=== PATIENT | male | born 1960 | race Caucasian/White ===

== ENCOUNTER 2016-11-28 17:12 | Emergency (ER) | payer OTHER ==
[2016-11-28 17:44] VITALS: BP 106/68
--- NOTE | 2016-11-28 17:54 | UC ---
Back Pain HPI - HPI Summary HPI Summary: 56 YEAR OLD MALE PRESENTS WITH COMPLAINS OF RIGHT SIDED LOWER BACK PAIN. - History of Current Complaint Chief Complaint: UCBackPain Stated Complaint: BACK PAIN Time Seen by Provider: 11/28/16 17:49 Hx Obtained From: Patient Timing: Constant, Lasting Hours Severity Initially: Moderate Severity Currently: Moderate Pain Scale Used: 0-10 Numeric - 7 Character: Sharp, Spasmodic Aggravating: Movement, Bending Alleviating: Rest, Position - Allergies/Home Medications Allergies/Adverse Reactions: Allergies Allergy/AdvReac Type Severity Reaction Status Date / Time No Known Allergies Allergy Verified 04/02/16 10:32 PMH/Surg Hx/FS Hx/Imm Hx Previously Healthy: Yes - Surgical History Surgical History: Yes Surgery Procedure, Year, and Place: 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 appy. hernia bilateral. RCT repair. heart caths x 3 - Family History Known Family History: Positive: Unknown - Social History Alcohol Use: Occasionally Substance Use Type: None Smoking Status (MU): Former Smoker When Did the Patient Quit Smoking/Using Tobacco: in his 20's - Immunization History Most Recent Influenza Vaccination: 2016 Review of Systems Constitutional: Negative Skin: Negative Eyes: Negative ENT: Negative Respiratory: Negative Cardiovascular: Negative Gastrointestinal: Negative Genitourinary: Negative Motor: Negative Neurovascular: Negative Musculoskeletal: Other: - RIGHT LOWER BACK PAIN/SPASM Neurological: Negative Psychological: Negative All Other Systems Reviewed And Are Negative: Yes Physical Exam Triage Information Reviewed: Yes Vital Signs: Initial Vital Signs Temp 37.1 C 11/28/16 17:40 Pulse 56 11/28/16 17:40 Resp 18 11/28/16 17:40 BP 106/68 11/28/16 17:40 Pulse Ox 98 11/28/16 17:40 Eye Exam: Normal ENT Exam: Normal Dental Exam: Normal Neck exam: Normal Neck: Positive: 1 Respiratory Exam: Normal Cardiovascular Exam: Normal Abdominal Exam: Normal Musculoskeletal: Positive: Other: - RIGHT LOWER BACK PAIN/SPASM Neurological Exam: Normal Psychological Exam: Normal Skin Exam: Normal Back Pain Course/Dx - Differential Dx/Diagnosis Provider Diagnoses: RIGHT LOWER BACK PAIN/SPASM Discharge - Discharge Plan Condition: Stable Disposition: HOME Prescriptions: Meloxicam(NF) [Mobic(NF)] 7.5 mg PO BID #30 tab Methocarbamol TAB* [Robaxin 500 MG TAB*] 500 mg PO TID PRN #30 tab PRN Reason: Spasms - Back Patient Education Materials: Low Back Strain (ED), Muscle Spasm (ED) Forms: *Work Release Referrals: Ousmane Mcqueen MD [Primary Care Provider] -
== END 2016-11-28 18:05 | disposition home or self-care (01) ==
LOC: UCEAST 17:12
DX: M54.5 Low back pain (principal); M62.830 Muscle spasm of back; Z87.891 Personal history of nicotine dependence
CPT/HCPCS: 99212; G0463

== ENCOUNTER 2016-12-01 17:07 | Emergency (ER) | payer OTHER ==
[2016-12-01 17:44] VITALS: BP 114/78
--- NOTE | 2016-12-01 17:51 | UC ---
Back Pain HPI - HPI Summary HPI Summary: 56 YEAR OLD MALE PRESENTS WITH COMPLAINS OF CONTINUED RIGHT SIDED LOWER BACK PAIN. HE HAS NOT SEEN PT. - History of Current Complaint Chief Complaint: UCBackPain Stated Complaint: BACK PAIN Time Seen by Provider: 12/01/16 17:51 Hx Obtained From: Patient Onset/Duration: Gradual Onset Timing: Intermittent Severity Initially: Moderate Severity Currently: Moderate Pain Scale Used: 0-10 Numeric - 5 Character: Sharp Aggravating: Movement, Lifting Alleviating: Rest, Position - Allergies/Home Medications Allergies/Adverse Reactions: Allergies Allergy/AdvReac Type Severity Reaction Status Date / Time No Known Allergies Allergy Verified 12/01/16 17:44 Home Medications: Home Medications Bisoprolol TAB* [Zebeta TAB*] 5 mg PO DAILY 12/01/16 [History Confirmed 12/01/16 ] PMH/Surg Hx/FS Hx/Imm Hx Previously Healthy: Yes - Surgical History Surgical History: Yes Surgery Procedure, Year, and Place: 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 appy. hernia bilateral. RCT repair. heart caths x 3 - Family History Known Family History: Positive: Unknown - Social History Alcohol Use: Occasionally Substance Use Type: None Smoking Status (MU): Former Smoker When Did the Patient Quit Smoking/Using Tobacco: in his 20's - Immunization History Most Recent Influenza Vaccination: 2016 Review of Systems Constitutional: Negative Skin: Negative Eyes: Negative ENT: Negative Respiratory: Negative Cardiovascular: Negative Gastrointestinal: Negative Genitourinary: Negative Motor: Negative Neurovascular: Negative Musculoskeletal: Other: - LOWER RIGHT SIDED BACK PAIN Neurological: Negative Psychological: Negative All Other Systems Reviewed And Are Negative: Yes Physical Exam Triage Information Reviewed: Yes Appearance: Well-Appearing Vital Signs: Initial Vital Signs Temp 36.6 C 12/01/16 17:40 Pulse 64 12/01/16 17:40 Resp 18 12/01/16 17:40 BP 114/78 12/01/16 17:40 Pulse Ox 98 12/01/16 17:40 Eye Exam: Normal ENT Exam: Normal Dental Exam: Normal Neck exam: Normal Neck: Positive: 1 Respiratory Exam: Normal Cardiovascular Exam: Normal Abdominal Exam: Normal Musculoskeletal: Positive: Other: - LOWER RIGHT SIDED BACK PAIN Neurological Exam: Normal Psychological Exam: Normal Skin Exam: Normal Back Pain Course/Dx - Differential Dx/Diagnosis Provider Diagnoses: LOWER RIGHT SIDED BACK PAIN Discharge - Discharge Plan Condition: Stable Disposition: HOME Prescriptions: Diclofenac 1% GEL (NF) [Voltaren 1% GEL (NF)] 2 gm TOPICAL BID #1 tube Methylprednisolone [Medrol Dosepak 4 MG*] 4 mg PO .SEE HAYLEY INSTRUCTION #21 tab Patient Education Materials: Low Back Strain (ED), Acute Low Back Pain (ED) Forms: *Work Release Referrals: Ousmane Mcqueen MD [Primary Care Provider] -
== END 2016-12-01 18:10 | disposition home or self-care (01) ==
LOC: UCEAST 17:07
DX: M54.5 Low back pain (principal)
CPT/HCPCS: 99212; G0463

== ENCOUNTER 2017-03-19 10:34 | Emergency (ER) | payer OTHER ==
[2017-03-19] MEDS ORDERED: Ibuprofen TAB* 400 MG PO ONE (11:20)
[2017-03-19] MEDS ORDERED: Acetaminophen TAB* 325 MG PO ONE (11:21)
[2017-03-19 11:22] VITALS: BP 136/89
--- NOTE | 2017-03-19 11:52 | RAD ---
INDICATION: LEFT scapular region pain radiates to the front of the chest. Remote cardiac surgery. COMPARISON: April 02, 2016 TECHNIQUE: Dual energy PA and routine lateral views of the chest were obtained. REPORT: Unchanged tented appearance at the LEFT mediastinal margin without concern. Clear lungs and pleural spaces. Negative for pneumothorax. Negative for cardiomegaly. Unremarkable central pulmonary vasculature. Surgical clips at the RIGHT humeral head. No suspicious osseous lesions. IMPRESSION: No evidence for acute intrathoracic disease.
--- NOTE | 2017-03-23 07:16 | UC ---
Aiden Coker Angela, [facility] on 03/19/17 at 1043 . Cardiac HPI - HPI Summary HPI Summary: In Room Note: This pt is a 57 y/o male presenting to [facility] c/o left sided shoulder blade pain for x6 days worsening since last night. Pt notes that this morning his left sided chest was sore. His pain is currently rated 9/10 and is constant. He has taken ibuprofen all week with relief. This morning he had Tylenol at 06:00 with no relief. His pain is aggravated with moving his left arm across his body and palpation. He denies radiation to the chin or radiation down the left arm, nausea, vomiting, diaphoresis, abd pain. Pt denies heavy lifting at work. Pt has an echo due next week. 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 Salazar (from [place]), is on 04/05. Pt is currently taking metoprolol, to take the work load off his heart. PMHx includes open hear surgery at age 4, cardiac catheterization x3 (last one was more than 10 years ago), heart murmur. Note: Vital signs are stable, afebrile Pulse ox is 97. 8/10 pain. Blood pressure is 127/81. Nurses note: Back pain since last week, pain moving to front of chest, points to L chest. Pain worse since last night. - History of Current Complaint Stated Complaint: SHOULDER BLADE PAIN CHEST PAIN Hx Obtained From: Patient Onset/Duration: Lasting Days, Still Present Timing: Constant Pain Intensity: 9 - out of 10 Chest Pain Location: Left Anterior Aggravating Factor(s): Other - moving left arm across his chest Associated Signs & Symptoms: Positive: Chest Pain. Negative: Nausea/Vomiting, Cough - with left shoulder blade pain, Abdominal Pain - Allergy/Home Medications Allergies/Adverse Reactions: Allergies Allergy/AdvReac Type Severity Reaction Status Date / Time No Known Allergies Allergy Verified 12/01/16 17:44 Home Medications: Home Medications Acetaminophen [Acetaminophen Extra Stren] 500 mg PO Q4H PRN 03/19/17 [History Confirmed 03/19/17] Atenolol [Tenormin 25 MG] 25 mg PO DAILY 03/19/17 [History Confirmed 03/19/17] Multiple Vitamin [Multivitamins] 1 cap PO DAILY 03/19/17 [History Confirmed 01/24] PMH/Surg Hx/FS Hx/Imm Hx - Additional Past Medical History Additional PMH: PMHx: heart murmur Previously Healthy: No - previous treatment for cardiovascular condition Other Endocrine History: DENIES: diabetes Cardiovascular History: Cardiac Disease - cardiac catheterization x3, Other - cardiac cath Other Cardiovascular History: cardiac cath - Surgical History Surgical History: Yes - cardiac cath Surgery Procedure, Year, and Place: 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 appy. hernia bilateral. RCT repair. heart caths x 3 - Family History Known Family History: Positive: Cardiac Disease - Father: CHF, pacemaker. 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 Neurological: Negative Psychological: Negative All Other Systems Reviewed And Are Negative: Yes Physical Exam Triage Information Reviewed: Yes Vital Signs: Initial Vitals Temp Pulse Resp BP Pulse Ox 97.9 F 51 16 127/81 97 03/19/17 10:45 03/19/17 10:45 03/19/17 10:45 03/19/17 10:45 03/19/17 10:45 Vital Signs Reviewed: Yes - Additional Comments The patient is well-nourished in no acute distress. The skin is warm and dry and skin color reflects adequate perfusion. HEENT: The head is normocephalic and atraumatic. The pupils are equal and reactive. The conjunctivae are clear and without drainage. Nares are patent and without drainage. Mouth reveals moist mucous membranes and the throat is without erythema and exudate. The external ears are intact. The ear canals are patent and without drainage. The tympanic membranes are intact. Neck is supple with full range of motion and non-tender. There are no carotid bruits. There is no neck vein distension. Respiratory: Lungs are clear to auscultation and breath sounds are symmetrical and equal. Cardiovascular: Hear is regular rate and rhythm. 2/6 SYSTOLIC MURMUR AT THE LEFT STERNAL BORDER (PREVIOUSLY DIAGNOSED). There is no peripheral edema and pulses are symmetrical and equal. NO BRUITS. Abdomen: The abdomen is soft and non-tender. There are normal bowel sounds heard in all four quadrants and there is no organomegaly palpated. Musculoskeletal: Extremities are non-tender with full range of motion. There is good capillary refill. There is no peripheral edema or calf tenderness elicited. OVER THE LEFT SCAPULA THERE IS PAIN WITH PALPATION. TRIGGER POINT OVER THE LEFT SCAPULA. THERE IS POSTERIOR SCAR ON THE POSTERIOR LEFT THORAX, THAT IS WELL HEALED WITHOUT INFECTION. BILATERAL FEMORAL PULSES ARE SYMMETRICAL AND EQUAL. Neurological: Patient is alert and oriented to person, place and time. The patient has symmetrical motor strength in all four extremities. Cranial nerves are grossly intact. Deep tendon reflexes are symmetrical and equal in all four extremities. Psychiatric: The patient has an appropriate affect and does not exhibit any anxiety or depression. Diagnostics - Radiology Chest XR Xray Interpretation: No Acute Changes - IMPRESSION: No evidence for acute intrathoracic disease. Dr. Holland has reviewed this radiology report. Radiology Interpretation Completed By: Radiologist - EKG Cardiac Rate: Bradycardia Cardiac Rhythm: Sinus: Normal - with 1st degree AV block. Q waves in V1 and V2. Re-Evaluation - Re-Evaluation First Eval Re-Evaluation Time: 11:47 Comment: Pt feels no chest discomfort, except when palpated in the left upper chest. - Assessment/Plan Course Of Treatment: Medications have been included in the original chart and reviewed. Patient is Urgent/Emergent. BP elevated due to current condition w/o HTN in PMH. Physical exam shows OVER THE LEFT SCAPULA THERE IS PAIN WITH PALPATION. TRIGGER POINT OVER THE LEFT SCAPULA. THERE IS POSTERIOR SCAR ON THE POSTERIOR LEFT THORAX, THAT IS WELL HEALED WITHOUT INFECTION. 2/6 SYSTOLIC MURMUR AT THE LEFT STERNAL BORDER (PREVIOUSLY DIAGNOSED). NO BRUITS. BILATERAL FEMORAL PULSES ARE SYMMETRICAL AND EQUAL. COT: Blood pressure testing in both arms shows no significant difference. I re-evaluated the pt at 11:47, pt feels no chest discomfort, except when palpated in the left upper chest. I discussed with the pt and , the choice of going to the ER for immediate evaluation and signs for cardiac conditions. They prefer not going to the ER. At this point based on the physical exam, it is most likely that this is posterior thorax muscle strain, but I did explain that further testing of the blood would be needed to help completely rule out any cardiac event. I have given the pt acetaminophen and ibuprofen, and I explained to the pt and his the regimen to take this for pain. I will also give him a 6 Vicodin. [facility] reference number is [id number]. I emphasized the importance of going to the ER if the pain changes in any way. - Differential Diagnoses - Chest Pain Differential Diagnosis/HQI/PQRI: Acute ID, Aortic Aneurysm, Chest Wall, Lower Respiratory Infection, Pulmonary Embolism - Differential Diagnoses - Palpitations Differential Diagnosis/HQI/PQRI: Pulmonary Embolism - Clinical Impression Provider Diagnoses: Left posterior thorax muscle strain Discharge - Discharge Plan Condition: Stable Disposition: HOME Prescriptions: HYDROcodone/ACETAMIN 5-325 MG* [Hollister 5-325 TAB*] 1 tab PO Q6H #6 tab MDD 4 Patient Education Materials: Chest Pain (ED), Muscle Spasm (ED), Thoracic Back Strain (ED) Forms: *Work Release Referrals: Ousmane Mcqueen MD [Primary Care Provider] - Additional Instructions: Your blood pressure reading today was 127/81, indicating PREHYPERTENSION. Follow -up with your primary care provider within 4 weeks for blood pressure readings and further evaluation. Thank you for helping us improve patient care by filling out the My Point Survey. 1. Your diagnosis is back strain. 2. As we discussed: your EKG did not show anything acute, but has some abnormal elements that you should discuss with your provider. 3. I have given you 6 Vicodin to help you sleep. 4. Warm moist heat in the morning, ice to the trigger point over left scapula. 5. Most important, if any signs of new pain or pain that might suggest a heart problem, go to ED. 6. Ibuprofen 400mg (2 pills) and acetaminophen 500 mg taken at the same time, up to four times a day would be good for both pain and calming down the inflammation. This may irritate your stomach. Take an antacid if it does. If you need to do this for more than a week because of pain, check with your doctor. PLEASE SEEK CARE AT THE EMERGENCY DEPARTMENT IF SYMPTOMS WORSEN OR IF NEW SYMPTOMS DEVELOP. FOLLOW UP WITH YOUR PRIMARY CARE PHYSICIAN. The documentation as recorded by the Aiden amaya,Va accurately reflects the service I personally performed and the decisions made by me, Douglas Holland MD.
== END 2017-03-19 12:15 | disposition home or self-care (01) ==
LOC: UCEAST 10:34
DX: S29.012A Strain of muscle and tendon of back wall of thorax, initial encounter (principal); X58.XXXA Exposure to other specified factors, initial encounter; Y93.9 Activity, unspecified; Y92.9 Unspecified place or not applicable; I44.0 Atrioventricular block, first degree; R01.1 Cardiac murmur, unspecified; Z87.891 Personal history of nicotine dependence
CPT/HCPCS: 71020; 93005; 99212; A9270-GY; G0463

== ENCOUNTER 2017-04-01 12:39 | Emergency (ER) | payer OTHER | END 2017-04-01 14:09 | disposition left against medical advice (07) | LOC: UCEAST 12:39 | DX: Z53.21 Procedure and treatment not carried out due to patient leaving prior to being seen by health care provider (principal) ==

== ENCOUNTER 2017-04-02 08:33 | Emergency (ER) | payer OTHER ==
[2017-04-02 09:13] VITALS: BP 147/93
--- NOTE | 2017-04-02 10:03 | UC ---
Shoulder Pain HPI - HPI Summary HPI Summary: 3 WEEKS OF PAIN POSTERIOR LEFT SHOULDER. NO INJURY. PT DOES A LOT OF REPETITIVE MOTION AT WORK. HAS TRIED IBUPROFEN AND HYDROCODONE WITHOUT MUCH RELIEF. HAS BEEN GOING TO PT FOR ABOUT A WEEK. NO APPRECIABLE DIFFERENCE SO FAR. HAS FULL ROM BUT PAIN IS CONSTANT. HAS BEEN TAKING 800MG IBUPROFEN EVERY 5HRS AND HAS HAD SOME STREAKING OF BLOOD ON HIS STOOLS. DENIES SOB, CP, DIZZINESS, FAINTNESS. - History of Current Complaint Chief Complaint: UCUpperExtremity Stated Complaint: SHOULDER PAIN Time Seen by Provider: 04/02/17 09:38 Hx Obtained From: Patient Onset/Duration: Gradual Onset, Lasting Weeks, Still Present Timing: Constant Severity Initially: Moderate Severity Currently: Moderate Pain Intensity: 9 Pain Scale Used: 0-10 Numeric Character: Sharp Aggravating Factor(s): Nothing Alleviating Factor(s): Nothing Associated Signs And Symptoms: Negative: Swelling, Weakness, Numbness/Tingling Related History: Dominant Hand Right - Allergies/Home Medications Allergies/Adverse Reactions: Allergies Allergy/AdvReac Type Severity Reaction Status Date / Time No Known Allergies Allergy Verified 04/02/17 09:13 PMH/Surg Hx/FS Hx/Imm Hx Cardiovascular History: Cardiac Disease - Surgical History Surgical History: Yes Surgery Procedure, Year, and Place: 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 appy. hernia bilateral. RCT repair. heart caths x 3 - Family History Known Family History: Positive: Unknown, Cardiac Disease - Father: CHF, pacemaker. Paternal grandfather: [place] at age 60., Other - Mother: scarlet fever Negative: Hypertension - Social History Alcohol Use: Occasionally Substance Use Type: None Smoking Status (MU): Former Smoker When Did the Patient Quit Smoking/Using Tobacco: in his 20's - Immunization History Most Recent Influenza Vaccination: 2016 Review of Systems Constitutional: Negative Skin: Negative Respiratory: Negative Cardiovascular: Negative Gastrointestinal: Negative Musculoskeletal: Myalgia All Other Systems Reviewed And Are Negative: Yes Physical Exam Triage Information Reviewed: Yes Appearance: Well-Appearing, No Pain Distress, Well-Nourished Vital Signs: Initial Vital Signs Temp 97.5 F 04/02/17 09:08 Pulse 68 04/02/17 09:08 Resp 20 04/02/17 09:08 BP 147/93 04/02/17 09:08 Pulse Ox 96 04/02/17 09:08 Vital Signs Reviewed: Yes Eyes: Positive: Conjunctiva Clear ENT: Positive: Hearing grossly normal Neck: Positive: Supple Respiratory: Positive: No respiratory distress, No accessory muscle use Cardiovascular: Positive: Pulses Normal Abdomen Description: Positive: Soft Musculoskeletal: Positive: ROM Intact, No Edema, Other: - TTP TRIGGER POINT MEDIAL TO LEFT SCAPULA. NEGATIVE EMPTY CAN, NEGATIVE [place]LEY. NOT TENDER OVER ANY BONY PROMINENCES. NOT TENDER OCER AC JOINT OR GH JOINT Neurological: Positive: Alert Psychological: Positive: Age Appropriate Behavior Skin: Negative: rashes Shoulder Course/Dx - Course Course Of Treatment: PT HAS DECLINED ANY WORK UP FOR BLOOD IN STOOL. STATES HE WILL STOP NSAIDS AND FOLLOW-UP WITH HIS PCP AFTER THE HOLIDAYS. - Differential Dx/Diagnosis Provider Diagnoses: LEFT SHOULDER MYOFASCIAL PAIN Discharge - Discharge Plan Condition: Stable Disposition: HOME Prescriptions: Cyclobenzaprine TAB* [Flexeril TAB*] 10 mg PO TID #30 tab predniSONE TAB* [Deltasone TAB*] 50 mg PO DAILY #5 tab Patient Education Materials: Trigger Point Pain (ED) Referrals: Ousmane Mcqueen MD [Primary Care Provider] - 2 Weeks Additional Instructions: CONTINUE PHYSICAL THERAPY. APPLY HEAT AND USE MASSAGE ON THE TRIGGER POINT TO HELP RELEASE IT. WILL TRY PREDNISONE AND FLEXERIL TO HELP WITH SYMPTOMS. STOP ALL NSAIDS DUE TO YOUR REPORT OF BLOOD ON THE STOOL. YOU HAVE DECLINED TO HAVE THIS FURTHER EVALUATED TODAY BUT PLEASE ENSURE YOU FOLLOW-UP WITH YOUR PCP TO HAVE THIS WORKED UP. GO TO THE ER WITHOUT FAIL IF YOU DEVELOP BLADIMIR BLOOD PER RECTUM, CHEST PAIN, SHORTNESS OF BREATH, DIZZINESS, FAINTNESS OR ANY OTHER CONCERNING SYMPTOMS.
== END 2017-04-02 10:12 | disposition home or self-care (01) ==
LOC: UCEAST 08:33
DX: M25.512 Pain in left shoulder (principal); I25.10 Atherosclerotic heart disease of native coronary artery without angina pectoris; Z87.891 Personal history of nicotine dependence
CPT/HCPCS: 99212; G0463

== ENCOUNTER 2017-10-28 12:05 | Emergency (ER) | payer OTHER ==
[2017-10-28 12:18] VITALS: BP 113/69
--- NOTE | 2017-10-28 12:33 | UC ---
Respiratory Complaint HPI - HPI Summary HPI Summary: C/O cough, congestion, productive cough in the AM. - History of Current Complaint Chief Complaint: UCRespiratory Stated Complaint: UPPER RESP Time Seen by Provider: 10/28/17 12:22 Hx Obtained From: Patient Onset/Duration: Gradual Onset, Lasting Weeks - 1, Worse Since - onset Timing: Constant Severity Initially: Mild Severity Currently: Moderate Pain Intensity: 0 Character: Cough: Productive - in the AM Associated Signs And Symptoms: Positive: URI, Nasal Congestion. Negative: Fever , Chills Related History: Seasonal Allergies - Allergies/Home Medications Allergies/Adverse Reactions: Allergies Allergy/AdvReac Type Severity Reaction Status Date / Time No Known Allergies Allergy Verified 10/28/17 12:19 Home Medications: Home Medications Meloxicam [Mobic] 15 mg PO DAILY 10/28/17 [History Confirmed 10/28/17] Vit A/Vit C/Vit E/Zinc/Copper [Preservision Areds Softgel] 1 each PO BID [History Confirmed 10/28/17] PMH/Surg Hx/FS Hx/Imm Hx Previously Healthy: Yes - Surgical History Surgical History: Yes Surgery Procedure, Year, and Place: 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 appy. hernia bilateral. RCT repair. heart caths x 3. Vasectomy - Family History Known Family History: Positive: Unknown, Cardiac Disease - Father: CHF, pacemaker. Paternal grandfather: [place] at age 60., Other - Mother: scarlet fever Negative: Hypertension, Diabetes - Social History Occupation: Employed Full-time Lives: With Family Alcohol Use: Occasionally Substance Use Type: None Smoking Status (MU): Former Smoker Have You Smoked in the Last Year: No When Did the Patient Quit Smoking/Using Tobacco: in his 20's - Immunization History Most Recent Influenza Vaccination: 2016 Review of Systems Constitutional: Fatigue ENT: Sore Throat, Sinus Congestion Respiratory: Cough Is Patient Immunocompromised?: No All Other Systems Reviewed And Are Negative: Yes Physical Exam Triage Information Reviewed: Yes Appearance: No Pain Distress, Well-Nourished, Ill-Appearing Vital Signs: Initial Vital Signs Temp 97.5 F 10/28/17 12:15 Pulse 61 10/28/17 12:15 Resp 18 10/28/17 12:15 BP 113/69 10/28/17 12:15 Pulse Ox 100 07/21/18 12:15 Vital Signs Reviewed: Yes Eyes: Positive: Conjunctiva Clear ENT: Positive: Pharynx normal, Nasal congestion, TMs normal Neck exam: Normal Respiratory: Positive: Wheezing - expiratory wheeze with coughing Cardiovascular: Positive: RRR, Murmur:Sys:Grade _?_/ - 3/6 Musculoskeletal Exam: Normal Neurological Exam: Normal Psychological Exam: Normal Skin Exam: Normal UC Diagnostic Evaluation - Laboratory O2 Sat by Pulse Oximetry: 100 Respiratory Course/Dx - Differential Dx/Diagnosis Differential Diagnosis/HQI/PQRI: Asthma, Lower Resp Infection, Sinusitis Provider Diagnoses: Acute URI. Acute bronchospasm Discharge - Sign-Out/Discharge Documenting (check all that apply): Patient Departure - Discharge Plan Condition: Stable Disposition: HOME Prescriptions: Albuterol HFA INHALER* [Ventolin HFA Inhaler*] 2 puff INH Q4H PRN #1 mdi PRN Reason: Wheezing predniSONE [Prednisone 20 MG TAB] 20 mg PO DAILY #18 tablet Patient Education Materials: Upper Respiratory Infection (ED), Bronchospasm (ED ), Prednisone (By mouth), How to Use a Metered-Dose Inhaler (ED) Referrals: Ousmane Mcqueen MD [Primary Care Provider] - Additional Instructions: NASAL SPRAYS AND DROPS: Afrin in the PUMP/ MIST bottle (Get generic 12 hours nasal decongestant spray). Tilt your head down and look at the floor while doing a strong sniff with the spray. Decongestant nasal sprays and drops often give dramatic relief from congestion. They are often recommended for patients with sinus infection to assist with sinus drainage. Persons with high blood pressure should consult the doctor before using these nasal sprays. Afrin and Geovany-Synephrine are common [id number] preparations. They should not be used for more than five days, as "rebound" congestion can occur - - the congestion flares as the drug wears off. A way of dealing with this rebound congestion problem is to medicate only one nostril each time, allowing the other nostril to recover from the medicine' s effects. When you no longer need the drug during the day, spray only one nostril each night. This helps you sleep well without severe rebound congestion. Call the doctor if you develop severe headache, palpitations, or chest pain. - Billing Disposition and Condition Condition: STABLE Disposition: Home
== END 2017-10-28 12:46 | disposition home or self-care (01) ==
LOC: UCCORT 12:05
DX: J06.9 Acute upper respiratory infection, unspecified (principal); J98.01 Acute bronchospasm; Z87.891 Personal history of nicotine dependence
CPT/HCPCS: 99212; G0463

== ENCOUNTER 2018-02-15 09:33 | Inpatient (IN) | payer OTHER ==
[2018-02-15] MEDS ORDERED: oxyCODONE/Acetamin 5/325 MG* TAB PO ONE (09:40)
--- NOTE | 2018-02-15 09:45 | ED ---
Lower Extremity - HPI Summary HPI Summary: Patient is a 58-year-old male who presents emergency department for bilateral knee injuries that occurred just prior to arrival. Patient states he has arthritis and pseudogout in his knees and today at work his knees hyper extended and he fell. Pt. states he then slid down the stair case on his bottom. No head injury or LOC. 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 No other injuries were sustained. Patient denies numbness or tingling in legs. Unable to bend or bear weight secondary to knee pain. Symptoms are [id number] in severity. - History of Current Complaint Stated Complaint: FALL Time Seen by Provider: 02/15/18 09:36 Hx Obtained From: Patient - Allergies/Home Medications Allergies/Adverse Reactions: Allergies Allergy/AdvReac Type Severity Reaction Status Date / Time No Known Allergies Allergy Verified 02/15/18 10:08 Home Medications: Home Medications Acetaminophen [Acetaminophen Extra Strength] 500 mg PO Q4HR PRN 02/15/18 [ History Confirmed 02/15/18] PMH/Surg Hx/FS Hx/Imm Hx Previously Healthy: Yes Endocrine/Hematology History: Denies: Hx Diabetes, Hx Thyroid Disease Cardiovascular History: Reports: Other Cardiovascular Problems/Disorders - BORN WITH HEART DEFECT HAD OPEN HEART SURGERY AT 4 YEARS OLD Denies: Hx Congestive Heart Failure, Hx Hypertension Respiratory History: Denies: Hx Asthma, Hx Chronic Obstructive Pulmonary Disease (COPD) GI History: Denies: Hx Ulcer, Other GI Disorders History: Denies: Hx Renal Disease - Surgical History Surgery Procedure, Year, and Place: 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 appy. hernia bilateral. RCT repair. heart caths x 3. Vasectomy Infectious Disease History: Reports: Hx Clostridium Difficile Denies: Hx Hepatitis, Hx Human Immunodeficiency Virus (HIV), Hx of Known/ Suspected MRSA, Hx Shingles, Hx Tuberculosis, Hx Known/Suspected VRE, Hx Known/ Suspected VRSA, History Other Infectious Disease - Family History Known Family History: Positive: Unknown, Cardiac Disease - Father: CHF, pacemaker. Paternal grandfather: [place] at age 60., Other - Mother: scarlet fever Negative: Hypertension, Diabetes - Social History Occupation: Employed Full-time Lives: With Family Alcohol Use: Occasionally Substance Use Type: Reports: None Smoking Status (MU): Former Smoker Have You Smoked in the Last Year: No Review of Systems Positive: Other - bilateral knee pain and swelling Negative: Weakness, Paresthesia, Numbness All Other Systems Reviewed And Are Negative: Yes Physical Exam Triage Information Reviewed: Yes Vital Signs Reviewed: Yes Appearance: Positive: Well-Appearing - Pt. sitting up in bed in NAD. Talkative. Pain with movement Skin: Positive: Warm, Dry Head/Face: Positive: Normal Head/Face Inspection Eyes: Positive: Normal, EOMI Neck: Positive: Supple Musculoskeletal: Positive: Other - Moderate diffuse edema to bilateral anterior knees with diffuse pain. Unable to flex secondary to pain. No overlying increased warmth or erythema. No hip pain with pelvic rock. Good palpable bilateral pedial pulses. 5/5 strength in great toes. Neurological: Positive: Normal, CN Intact II-III Psychiatric: Positive: Affect/Mood Appropriate Diagnostics - Laboratory Result Diagrams: 02/15/18 11:04 02/15/18 11:04 Lab Statement: Any lab studies that have been ordered have been reviewed, and results considered in the medical decision making process. Lower Extremity Course/Dx - Course Course Of Treatment: Patient presenting to the ER for bilateral knee injuries that occurred just prior to arrival. Patient came make EMS and states he's unable to bear weight secondary to pain. Pt. was given 2 Percocet for pain and x-rays ordered. X-rays show mild bilateral effusions without fracture or dislocation. Reexamination patient states pain has improved and is still there is no significant pain with movement. Case discussed with Dr. Lee who recommends basic blood work and inflammatory markers. Work was unremarkable. On reexamination attempted to ambulate patient with his in room. Patient attempted to swing left leg over bed and started screaming in pain. Most of pt.' s pain seems to be over superior knee and he really is unable to lift legs off of bed secondry to knee pain. He is neurovascularly intake and has full strength in legs. No back injury or pain. I spoke with oncall orthopedics, Dr. Veronica, who recommends MRI for further evaluation. I spoke with MRI and they are unable to do MRI until after 3. Pt. is unable to ambulate regardless and cannot be dc home. I spoke with hospitalist, Dr. Ko, and pt. has been accepted to her service. - Diagnoses Differential Diagnosis/HQI/PQRI: Positive: Contusion, Dislocation, Fracture ( Closed), Sprain, Strain Provider Diagnoses: Acute bilateral knee pain, Ambulatory dysfunction Discharge - Sign-Out/Discharge Documenting (check all that apply): Patient Departure - Discharge Plan Condition: Stable Disposition: ADMITTED TO [facility] Referrals: Ousmane Mcqueen MD [Primary Care Provider] - - Billing Disposition and Condition Condition: STABLE Disposition: Admitted to [facility]
[2018-02-15 11:20] LABS: ABS Basophils 0 10^3/ul (0-0.2); ABS Eosinophils 0.2 10^3/ul (0-0.6); ABS Lymphocytes 1.5 10^3/ul (1.0-4.8); ABS Monocytes 0.8 10^3/ul (0-0.8); ABS Neutrophils 5.5 10^3/ul (1.5-7.7); ABS Nucleated RBC 0 10^3/ul; Eosinophil % 1.9 % (0-6); Hematocrit 42 % (42-52); Hemoglobin 14.3 g/dl (14.0-18.0); Lymphocyte % 18.3 % (25-47); Mean Corpuscular HGB Conc 34 g/dl (31-36); Mean Corpuscular Hemoglobin 31 pg (27-31); Mean Corpuscular Volume 90 fL (80-94); Mean Platelet Volume 8.3 fL (7.4-10.4); Nucleated Red Blood Cells % 0; Platelet Count 177 10^3/ul (150-450); Red Blood Count 4.68 10^6/ul (4.00-5.40); Red Cell Distribution Width 14 % (10.5-15)
[2018-02-15 11:43] LABS: EGFR Non-African American 87.2 (>60); Uric Acid 7.1 mg/dL (4.4-7.6)
[2018-02-15] MEDS ORDERED: Morphine VIAL* 4 MG/ML VIAL (1 ml vial) IV ONE (12:49)
[2018-02-15] MEDS ORDERED: Ondansetron INJ* 2 MG/ML VIAL IV PRN (13:02)
[2018-02-15] MEDS ORDERED: oxyCODONE TAB* 5 MG TAB PO PRN (13:02)
[2018-02-15] MEDS ORDERED: Acetaminophen TAB* 325 MG PO PRN (13:02)
[2018-02-15] MEDS ORDERED: rOPINIRole TAB* 4 MG PO PRN (17:51)
[2018-02-15] MEDS ORDERED: NS 0.9% 1000 ML* 1,000 ML IV SCH (18:00)
[2018-02-15] MEDS: Morphine VIAL* 4 MG/ML VIAL (1 ml vial) IV PRN (20:30)
[2018-02-15 20:31] LABS: ABS Basophils 0 10^3/ul (0-0.2); ABS Eosinophils 0.2 10^3/ul (0-0.6); ABS Lymphocytes 1.9 10^3/ul (1.0-4.8); ABS Monocytes 0.7 10^3/ul (0-0.8); ABS Neutrophils 4.3 10^3/ul (1.5-7.7); ABS Nucleated RBC 0 10^3/ul; Eosinophil % 3.1 % (0-6); Hematocrit 42 % (42-52); Hemoglobin 14.1 g/dl (14.0-18.0); Lymphocyte % 26.7 % (25-47); Mean Corpuscular HGB Conc 34 g/dl (31-36); Mean Corpuscular Hemoglobin 31 pg (27-31); Mean Corpuscular Volume 90 fL (80-94); Mean Platelet Volume 8.7 fL (7.4-10.4); Nucleated Red Blood Cells % 0.1; Platelet Count 191 10^3/ul (150-450); Red Blood Count 4.64 10^6/ul (4.00-5.40); Red Cell Distribution Width 14 % (10.5-15); White Blood Count 7.1 10^3/ul (3.5-10.8)
[2018-02-15 20:44] LABS: INR 0.98 (0.77-1.02)
[2018-02-15 21:01] LABS: EGFR Non-African American 87.2 (>60)
--- NOTE | 2018-02-15 21:46 | CONS ---
ORTHOPEDIC CONSULTATION NOTE: DATE OF CONSULT: 02/15/18 Thank you for this orthopedic consultation. CHIEF COMPLAINT: Bilateral knee pain. HISTORY OF PRESENT ILLNESS: Mr. Esparza is a 58-year-old gentleman, who reports his knees buckled at the top of the stairs and he fell earlier today. He feels like the knees hyperextended and he slid down the staircase. The patient reported inability to bend his knees, lift his knees, or walk with 10/10 pain in the bilateral knees. Immobilization helped his pain. He denied loss of consciousness or head injury. Patient was brought [place] [facility] and could not stand or ambulate. He had MRI of bilateral knees which show bilateral distal quadriceps tendon tears. He was admitted [place] [facility] [place]opedic evaluation and possible discharge planning. PAST MEDICAL HISTORY: Prior PDA, congenital heart defect. PAST SURGICAL HISTORY: Open heart surgery at age 4, appendectomy, hernia repair bilaterally, rotator cuff repair, heart catheterization x3, vasectomy. FAMILY HISTORY: Paternal heart disease. 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 He lives with his family. Occasional alcohol use. No tobacco or recreational drugs. Normally an independent ambulator. REVIEW OF SYSTEMS: Fourteen systems reviewed with the patient today. Positive for bilateral knee pain and swelling. Positive for bilateral knee weakness. Positive for the recent fall. Negative for fevers, chills, chest pain, shortness of breath, nausea, vomiting, headache, or dizziness. Otherwise, the patient reports review of systems is negative or not relevant. PHYSICAL EXAM: Vitals: Temperature 98, pulse of 54, blood pressure 126/74. General: The patient is a well-nourished male, in no apparent distress. Alert and oriented x3. Pleasant mood and appropriate affect. Gait: The patient's gait is not assessed. HEENT: Atraumatic, normocephalic. Pupils equal and reactive to light. Chest: Unlabored breathing. Abdomen: Soft, nontender, nondistended. Bowel sounds in 4 quadrants. Bilateral lower extremities: The patient's skin is intact. No abrasions or open wounds. [id number] effusion of the bilateral knees. Palpable defects along the distal quadriceps of the knees with tenderness to palpation. He has negative straight leg raise bilaterally. Distally, he has no edema, varicosities, or hyperreflexia. He has 5/5 ankle dorsiflexion and plantar flexion strength bilaterally. Full sensation to light touch in all nerve distributions and 2+ palpable DP pulses. DIAGNOSTIC STUDIES: Radiographs: Bilateral knee MRIs are reviewed, which show distal quadriceps tendon rupture of the bilateral knees. ASSESSMENT AND PLAN: Mr. 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 He had a fall today with bilateral distal quadriceps tendon ruptures. The patient and I discussed his operative and nonoperative treatment options. He wishes to proceed with surgery. We discussed that he will need to have his knees in extension for 3 to 4 weeks after the surgery. At this time, he would like to proceed with both sides due to the pain and dysfunction in his knees. He is currently being optimized by the medical team. They are looking into his cardiac history and recent echo. I spoke with Scott Lawson, who does feel he will be cleared for surgery tomorrow. We will tentatively schedule him for bilateral quadriceps tendon repair approximately 4 p.m. on 02/16/18 with the first available OR. I discussed with the patient the risks and benefits of surgery and he would like to proceed. For now, he should have p.r.n. analgesia and be on bed rest. He should have DVT prophylaxis. He should be n.p.o. after 8 a.m. [id number]/[facility] #: [id number] NATALIE
--- NOTE | 2018-02-15 22:03 | HP ---
CC: Dr. Ousmane Mcqueen; Dr. Salazar * HISTORY AND PHYSICAL: DATE OF ADMISSION: 02/15/18 PRIMARY CARE PROVIDER: Ousmane Mcqueen MD ATTENDING PHYSICIAN WHILE IN THE HOSPITAL: Trudi Ko DO * (report dictated by Scott Lawson NP) CHIEF COMPLAINT: 1. Fall. 2. Bilateral leg pain. HISTORY OF PRESENT ILLNESS: Mr. 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 He today was going down some stairs and he says his knees have just gave out; he did not pass out, he did not faint. He had no chest pain prior to or after. The patient states that he is pretty active. 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 He is up and down stairs multiple times a day. He does not get chest pain or shortness of breath. He states today it was different. His legs just have given out on him. They hyperextended bending to his ankle, was almost touching his butt and all of his weight came down. He slipped down the stairs. He did not hit his head. He did not hit his neck. He slipped down the stairs and he heard a tearing sound in both his legs. He knew something was wrong. He tried to stand up and he could not. He was in a significant excruciating amount of pain. So, he came in to the hospital. He denies any recent illnesses. No fevers. No chills. No abdominal pain. No nausea. No vomiting. He said that he has not had any change in medications with the exception his Requip recently increased to 1 mg. He was concerned because of this and he decided to come into the emergency room for further evaluation. While here, it was noted that he did have bilateral quadriceps tear and he was admitted to the hospital and we were under our service with orthopedic consultation. PAST MEDICAL HISTORY: Significant for: 1. BPH. 2. Patent ductus arteriosus as a child. He underwent a repair of this. 3. Restless leg syndrome. PAST SURGICAL HISTORY: 1. He has had a PDA repair when he was 4 years old. 2. He has had rotator cuff repair. 3. Hernia repair. 4. Appendectomy. 5. He has had heart catheterizations in the past, but no stents. 6. He has had a vasectomy. 7. Bunionectomy. HOME MEDICATIONS: Include: 1. Tylenol 500 mg every 4 hours as needed. 2. Requip 1 mg p.o. at bedtime as needed. 3. Flomax 0.4 mg daily. 4. Mobic 15 mg p.o. daily. 5. Zyrtec 10 mg p.o. daily as needed. 6. Atenolol 25 mg daily. ALLERGIES TO MEDICATIONS: Include no known drug allergies. FAMILY HISTORY: He states his mother's history is unknown, but his father did have a pacemaker and had colon cancer. SOCIAL HISTORY: He does not smoke. He drinks alcohol occasionally. Surrogate decision maker is his . REVIEW OF SYSTEMS: There is no documented fever. He denied having any significant weight change. There is no double vision. He denies having any ear discharge. There is no rhinorrhea. There was no sore throat. No thyroid enlargement. He denied having any chest pain. There was no orthopnea. There was nocturnal dyspnea. He denied having any abdominal pain. There was no nausea, no vomiting. No dysuria, no frequency. No seizures, no loss of consciousness. No pruritus and no skin ulcerations. Review of 14 systems completed, all others negative. PHYSICAL EXAMINATION GENERAL: At this time, Mr. Esparza is a 58-year-old male patient. He is sitting in the hospital bed. He does not appear to be in any acute distress. He appears to be well nourished and well developed. VITAL SIGNS: Blood pressure 126/74 with a pulse of 54, respirations 16, O2 sat 99%, temperature 98.0. HEENT: Head: Atraumatic and normocephalic. Eyes: EOMs are intact. Sclerae anicteric and not pale. Throat: Oral mucosa appears to be moist. No oropharyngeal erythema. NECK: Supple. LUNGS: Clear to auscultation. No wheezes, rales, rhonchi. HEART: Sounds S1, S2. He does have a grade 2 to 3 murmur heard in the aortic listening area, systolic in nature. Otherwise, no rubs are noted. ABDOMEN: Soft. It was flat, nontender. Bowel sounds were present. EXTREMITIES: Distal CSM checks are noted to the lower extremities, but he has difficulty with range of motion due to pain to the bilateral lower extremities. He had 5/5 strength in the upper extremities. NEUROLOGIC: He is awake. He is alert. He is oriented x3. His tongue is midline. Sock Liner were equal. He had no gross focal deficits. SKIN: Grossly intact. LABORATORY DATA/DIAGNOSTIC STUDIES: His labs today revealed a WBC of 8.0, RBC of 4.68, hemoglobin 14.3, hematocrit 42, and platelet count of 177. His sodium was 139, potassium was 4.2, chloride 109, bicarb 24, BUN 25, creatinine of 1.89 , glucose 104. Uric acid is 7.1. Calcium 8.9. Total bili 1.0, AST 26, ALT 24 , alk phos 48. His CRP was 4.06. Albumin was 3.7. He had a knee MRI of the left and the right knee. Impression on the right knee , complete tear of the distal quadriceps tendon, posttraumatic prepatellar bursitis, probable radial tear of the body of the medial meniscus. He had a knee MRI of the left knee as well, which showed complete tear of the distal quadriceps tendon, findings consistent with posttraumatic prepatellar bursitis, ACL sprain, radial tear of the body of the medial meniscus. He had a knee x- ray obtained today, which showed small bilateral joint effusions, no fractures. Old medical records were reviewed. ASSESSMENT AND PLAN: Mr. Esparza is a 58-year-old male patient coming in to the ED today with complaints of a mechanical fall, now on evaluation found to have bilateral quadriceps tendon tears. He will be admitted under inpatient status for: 1. Quadriceps tendon tears. Again, at this point, I did consult Dr. Veronica. In terms of his RCRI score, he is a low risk. His biggest risk is history of his congenital heart disease. I am going to get records from Dr. Salazar, but I am going to get an EKG and a chest x-ray. If these are stable, then the patient is medically optimized for the proposed procedure. 2. History of patent ductus arteriosus. Continue with atenolol. 3. History of benign prostatic hypertrophy. Continue with meds as prescribed. 4. History of restless leg syndrome. Continue his Requip. 5. DVT prophylaxis. He is high risk. He will be placed on heparin subcu. 6. Code status. He is a full code. 7. Fluids, electrolytes, and nutrition. He can have a regular diet and n.p.o. after midnight. TIME SPENT: Time spent on admission 60 minutes; greater than half time spent face- to-face with the patient, obtaining my history and physical, the other half time was spent going over the plan of care with the patient and implementing the plan of care. I did discuss the plan of care with my attending, Dr. Ko, she is in agreement. SCOTT LAWSON, SAFETY COMPLIANCE SPECIALIST [id number]/[facility] #: [id number] NATALIE
[2018-02-15] MEDS: Heparin VIAL(*) 5000 UNITS/ML VIAL (FIVE THOUSAND) SUBCUT SCH (23:00)
[2018-02-16] MEDS ORDERED: ceFAZolin 1 GM* X 3 DOSES POST-OP Q8H (AddVan) IVPB SCH ×2 (01:00)
[2018-02-16] MEDS: Heparin VIAL(*) 5000 UNITS/ML VIAL (FIVE THOUSAND) SUBCUT SCH ×3 (06:07→22:16)
[2018-02-16 06:48] LABS: ABS Basophils 0 10^3/ul (0-0.2); ABS Eosinophils 0.2 10^3/ul (0-0.6); ABS Lymphocytes 1.2 10^3/ul (1.0-4.8); ABS Monocytes 0.8 10^3/ul (0-0.8); ABS Neutrophils 3.9 10^3/ul (1.5-7.7); ABS Nucleated RBC 0 10^3/ul; Eosinophil % 3.4 % (0-6); Hematocrit 41 % (42-52); Hemoglobin 14.2 g/dl (14.0-18.0); Lymphocyte % 19.6 % (25-47); Mean Corpuscular HGB Conc 34 g/dl (31-36); Mean Corpuscular Hemoglobin 31 pg (27-31); Mean Corpuscular Volume 90 fL (80-94); Mean Platelet Volume 8.1 fL (7.4-10.4); Nucleated Red Blood Cells % 0.1; Platelet Count 168 10^3/ul (150-450); Red Cell Distribution Width 14 % (10.5-15); White Blood Count 6.1 10^3/ul (3.5-10.8)
[2018-02-16 06:53] LABS: INR 0.88 (0.77-1.02)
[2018-02-16 07:06] LABS: EGFR Non-African American 98.6 (>60)
[2018-02-16] MEDS: Tamsulosin CAP* 0.4 MG PO SCH (10:44)
[2018-02-16] MEDS: Atenolol TAB* 25 MG PO SCH ×2 (10:44→14:45)
--- NOTE | 2018-02-16 12:31 | PN ---
Progress Note - Progress Note Date of Service: 02/16/18 SOAP: Subjective: []Patient seen briefly at bedside, being bathed. Doing well overall, NPO for surgery this evening with Dr. Veronica. No questions or concerns. Objective: [] Vital Signs Temp 96.8 F 02/16/18 11:23 Pulse 58 02/16/18 11:23 Resp 19 02/16/18 11:23 BP 118/74 02/16/18 11:23 Pulse Ox 97 02/16/18 11:23 Intake & Output 02/15/18 02/16/18 02/16/18 18:59 06:59 18:59 Intake Total 600 0 Output Total 400 Balance 600 -400 Weight 203 lb 12.8 oz Intake: Oral 600 0 Output: Urine 400 Other: # Voids 1 Laboratory Results - last 24 hr 02/15/18 02/15/18 02/15/18 11:04 13:48 20:03 WBC RBC Hgb Hct MCV MCH MCHC RDW Plt Count MPV Neut % (Auto) Lymph % (Auto) [place] % (Auto) Eos % (Auto) Baso % (Auto) Absolute Neuts (auto) Absolute Lymphs (auto) Absolute Monos (auto) Absolute Eos (auto) Absolute Basos (auto) Absolute Nucleated RBC Nucleated RBC % ESR Cancelled 9 INR (Anticoag Therapy) APTT Sodium Potassium Chloride Carbon Dioxide Anion Gap BUN 23 Creatinine 0.89 Est GFR ( Amer) 105.5 Est GFR (Non-Af Amer) 87.2 BUN/Creatinine Ratio Glucose Calcium 02/15/18 02/15/18 02/16/18 20:03 20:03 06:28 WBC 7.1 6.1 RBC 4.64 4.60 Hgb 14.1 14.2 Hct 42 41 L MCV 90 90 MCH 31 31 MCHC 34 34 RDW 14 14 Plt Count 191 168 MPV 8.7 8.1 Neut % (Auto) 60.1 63.5 Lymph % (Auto) 26.7 19.6 L [place] % (Auto) 9.6 H 13.0 H Eos % (Auto) 3.1 3.4 Baso % (Auto) 0.5 0.5 Absolute Neuts (auto) 4.3 3.9 Absolute Lymphs (auto) 1.9 1.2 Absolute Monos (auto) 0.7 0.8 Absolute Eos (auto) 0.2 0.2 Absolute Basos (auto) 0 0 Absolute Nucleated RBC 0 0 Nucleated RBC % 0.1 0.1 ESR INR (Anticoag Therapy) 0.98 APTT 35.4 Sodium Potassium Chloride Carbon Dioxide Anion Gap BUN Creatinine Est GFR ( Amer) Est GFR (Non-Af Amer) BUN/Creatinine Ratio Glucose Calcium 02/16/18 02/16/18 06:28 06:28 WBC RBC Hgb Hct MCV MCH MCHC RDW Plt Count MPV Neut % (Auto) Lymph % (Auto) [place] % (Auto) Eos % (Auto) Baso % (Auto) Absolute Neuts (auto) Absolute Lymphs (auto) Absolute Monos (auto) Absolute Eos (auto) Absolute Basos (auto) Absolute Nucleated RBC Nucleated RBC % ESR INR (Anticoag Therapy) 0.88 APTT Sodium 140 Potassium 4.1 Chloride 109 Carbon Dioxide 25 Anion Gap 6 BUN 20 Creatinine 0.80 Est GFR ( Amer) 119.3 Est GFR (Non-Af Amer) 98.6 BUN/Creatinine Ratio 25.0 H Glucose 106 H Calcium 8.6 BLE, NVI +DF/PF Bilateral ankles Assessment: []Bilateral quad tendon ruptures s/p fall Plan: []NPO for repair bilateral quad tendon ruptures this evening with Dr. Veronica.
[2018-02-16] MEDS: Morphine VIAL* 4 MG/ML VIAL (1 ml vial) IV PRN ×3 (12:37→20:19)
--- NOTE | 2018-02-16 13:33 | PN ---
Subjective Date of Service: 02/16/18 Interval History: Pt is feeling well. He has no pain in his knees at this time but he just got morphine. He states he has more movement in his legs today. Objective Active Medications: Acetaminophen (Tylenol Tab*) 650 mg PO Q4H PRN PRN Reason: PAIN Atenolol (Tenormin Tab*) 25 mg PO DAILY [facility] Last Admin: 02/16/18 10:44 Dose: Not Given Heparin Sodium (Porcine) (Heparin Vial(*)) 5,000 units SUBCUT Q8HR [facility] Last Admin: 02/16/18 12:31 Dose: Not Given Morphine Sulfate (Morphine Vial*) 2 mg IV Q4H PRN PRN Reason: PAIN - MILD Last Admin: 02/16/18 12:37 Dose: 2 mg Ondansetron HCl (Zofran Inj*) 4 mg IV Q6H PRN PRN Reason: NAUSEA Oxycodone HCl (Roxycodone Tab*) 5 mg PO Q4H PRN PRN Reason: pain 1-5 Oxycodone HCl (Roxycodone Tab*) 10 mg PO Q4H PRN PRN Reason: Pain 6-10 Ropinirole HCl (Requip*) 1 mg PO BEDTIME PRN PRN Reason: SPASMS Tamsulosin HCl (Flomax Cap*) 0.4 mg PO DAILY [facility] Last Admin: 02/16/18 10:44 Dose: Not Given Vital Signs - 8 hr 02/16/18 02/16/18 02/16/18 08:28 11:23 12:37 Temperature 97.9 F 96.8 F Pulse Rate 57 58 Respiratory 18 19 18 Rate Blood Pressure 115/75 118/74 (mmHg) O2 Sat by Pulse 98 97 Oximetry Oxygen Devices in Use Now: None Appearance: Middle aged male sitting up in bed, NAD Eyes: No Scleral Icterus Ears/Nose/Mouth/Throat: Mucous Membranes Moist Respiratory: Symmetrical Chest Expansion and Respiratory Effort, Clear to Auscultation Cardiovascular: NL Sounds; No Murmurs; No JVD, RRR Abdominal: NL Sounds; No Tenderness; No Distention Extremities: No Clubbing, Cyanosis Skin: No Nodules or Sclerosis Neurological: Alert and Oriented x 3 Result Diagrams: 02/16/18 06:28 02/16/18 06:28 Assess/Plan/Problems-Billing Mr Esparza is a 58 yo M who has no significant PMHx who presented to the ER after a fall and unfortunately sustained bilateral distal quadriceps tendon rupture. - Patient Problems (1) Quadriceps tendon rupture Current Visit: Yes Status: Acute Code(s): S76.119A - STRAIN OF UNSP QUADRICEPS MUSCLE, FASCIA AND TENDON, INIT SNOMED Code(s): 9407135 Comment: Pt has bilateral quadriceps tendon rupture. Plan is to go to the OR this afternoon for repair. Continue pain management. (2) DVT prophylaxis Current Visit: Yes Status: Acute Code(s): ROJ6599 - SNOMED Code(s): 192063858 Comment: SQ heparin (3) Full code status Current Visit: Yes Status: Acute Code(s): Z78.9 - OTHER SPECIFIED HEALTH STATUS SNOMED Code(s): 509632787
[2018-02-16] MEDS ORDERED: Bupivacaine 0.5% W/EPI SDV* 30 ML VIAL ONE (15:43)
[2018-02-16] MEDS ORDERED: fentaNYL* 50 MCG/ML 5 ML VIAL (250 MCG VIAL) ONE (16:02)
[2018-02-16] MEDS ORDERED: Midazolam* 1 MG/ML 2 ML VIAL (2 MG) ONE (16:02)
[2018-02-16] MEDS ORDERED: ceFAZolin 2 GM PREMIX in ORs 2 GM/50 ML BAG IVPB ONE (16:44)
[2018-02-16] MEDS ORDERED: Acetaminophen TAB* 325 MG PO PRN (16:49)
[2018-02-16] MEDS ORDERED: Ketorolac INJ* 30 MG/ML 1 ML VIAL IV PRN (16:49)
[2018-02-16] MEDS ORDERED: PROCHLORPERAZINE INJ 5 MG/ML 2 ML VIAL IV PRN (16:49)
[2018-02-16] MEDS ORDERED: HYDROcodone/ACETAMIN 5-325 MG* 1 TAB PO PRN (16:49)
[2018-02-16] MEDS ORDERED: DiMENhydriNATE IV* 50 MG/ML VIAL IV PUSH PRN (16:49)
[2018-02-16] MEDS ORDERED: Naloxone* 0.4 MG/ML 1 ML VIAL IV PRN (16:49)
[2018-02-16] MEDS ORDERED: Dexamethasone IV* 4 MG/ML 1 ML (4 MG) ONE (17:22)
[2018-02-16] MEDS ORDERED: Metoclopramide IV* 5 MG/ML 2 ML VIAL ONE (17:22)
[2018-02-16] MEDS ORDERED: Rocuronium* 10 MG/ML VIAL ONE (17:32)
[2018-02-16] MEDS ORDERED: Propofol* 10 MG/ML 20 ML BTL IV PUSH ONE (17:33)
[2018-02-16] MEDS ORDERED: Lidocaine 2% PF * 5 ML VIAL ONE (17:33)
[2018-02-16] MEDS ORDERED: Phenylephrine IV* 40 MCG/ML 10 ML SYRINGE ONE (17:33)
[2018-02-16] MEDS ORDERED: EPHEDrine (Pressors)* 50 MG/ML VIAL ONE (17:33)
[2018-02-16] MEDS ORDERED: Morphine VIAL* 10 MG/ML 1 ML VIAL ONE (18:10)
[2018-02-16] MEDS ORDERED: Ondansetron INJ* 2 MG/ML VIAL ONE (18:36)
[2018-02-16] MEDS ORDERED: Ketorolac INJ* 30 MG/ML 1 ML VIAL ONE (19:30)
[2018-02-16] MEDS ORDERED: fentaNYL* 50 MCG/ML 2 ML VIAL (100 MCG VIAL) ONE ×2 (19:30→19:46)
[2018-02-16] MEDS: fentaNYL* 50 MCG/ML 2 ML VIAL (100 MCG VIAL) IV PRN ×3 (19:33→19:48)
[2018-02-16] MEDS ORDERED: HYDROcodone/ACETAMIN 5-325 MG* 1 TAB ONE (19:43)
[2018-02-16] MEDS ORDERED: Morphine VIAL* 4 MG/ML VIAL (1 ml vial) IV ONE (19:51)
[2018-02-16] MEDS ORDERED: Acetaminophen IV 1GM/100ML * 100 ML ONE (20:44)
[2018-02-16] MEDS ORDERED: HYDROmorphone INJ1* 1 MG/ML SYRINGE ONE (20:52)
[2018-02-16] MEDS ORDERED: Omeprazole CAP* 20 MG PO ONE (21:00)
[2018-02-16] MEDS ORDERED: Cetirizine* 10 MG TAB PO PRN (21:57)
[2018-02-16] MEDS: oxyCODONE TAB* 5 MG TAB PO PRN (23:17)
[2018-02-17] MEDS: ceFAZolin 1 GM in Dextrose (*) 1 GM/50 ML BAG IVPB SCH ×3 (00:57→17:35)
[2018-02-17] MEDS: Morphine VIAL* 4 MG/ML VIAL (1 ml vial) IV PRN ×2 (01:03→05:57)
[2018-02-17] MEDS: oxyCODONE TAB* 5 MG TAB PO PRN ×3 (03:22→13:11)
[2018-02-17] MEDS: Heparin VIAL(*) 5000 UNITS/ML VIAL (FIVE THOUSAND) SUBCUT SCH (05:59)
--- NOTE | 2018-02-17 07:42 | PN ---
Subjective Date of Service: 02/17/18 Interval History: Pt is feeling ok today. He has no pain in his knees at this time. No CP or SOB. He has not had a BM since being admitted. Objective Active Medications: Acetaminophen (Tylenol Tab*) 650 mg PO Q4H PRN PRN Reason: PAIN Atenolol (Tenormin Tab*) 25 mg PO DAILY [facility] Last Admin: 02/16/18 14:45 Dose: 25 mg Cetirizine HCl (Zyrtec*) 10 mg PO DAILY PRN; Protocol PRN Reason: CONGESTION Last Admin: 02/16/18 22:24 Dose: 10 mg Diazepam (Valium Tab(*)) 5 mg PO Q8H PRN PRN Reason: muscle spasms/pain Heparin Sodium (Porcine) (Heparin Vial(*)) 5,000 units SUBCUT Q8HR [facility] Last Admin: 02/17/18 05:59 Dose: 5,000 units Lactated Ringer's (Lactated Ringers 1000 Ml Bag*) 1,000 mls @ 75 mls/hr IV PER RATE [facility] Last Admin: 02/16/18 22:16 Dose: 75 mls/hr Cefazolin Sodium/Dextrose (Kefzol 1 Gm In Dextrose Duplex (*)) 1 gm in 50 mls @ 200 mls/hr IVPB Q8H [facility] Last Admin: 02/17/18 00:57 Dose: 200 mls/hr Morphine Sulfate (Morphine Vial*) 2 mg IV Q4H PRN PRN Reason: PAIN - MILD Last Admin: 02/17/18 05:57 Dose: 2 mg Omeprazole (Prilosec Cap*) 20 mg PO BID [facility] Ondansetron HCl (Zofran Inj*) 4 mg IV Q6H PRN PRN Reason: NAUSEA Oxycodone HCl (Roxycodone Tab*) 5 mg PO Q4H PRN PRN Reason: pain 1-5 Oxycodone HCl (Roxycodone Tab*) 10 mg PO Q4H PRN PRN Reason: Pain 6-10 Last Admin: 02/17/18 03:22 Dose: 10 mg Polyethylene Glycol/Electrolytes (Miralax*) 17 gm PO DAILY [facility] Ropinirole HCl (Requip*) 1 mg PO BEDTIME PRN PRN Reason: SPASMS Tamsulosin HCl (Flomax Cap*) 0.4 mg PO DAILY [facility] Last Admin: 02/16/18 10:44 Dose: Not Given Vital Signs - 8 hr 02/17/18 02/17/18 02/17/18 00:00 00:01 00:54 Temperature 97.4 F 97.3 F Pulse Rate 59 65 Respiratory 16 20 16 Rate Blood Pressure 100/63 104/63 (mmHg) O2 Sat by Pulse 96 98 Oximetry 02/17/18 02/17/18 02/17/18 01:03 01:36 03:22 Temperature Pulse Rate Respiratory 16 18 Rate Blood Pressure (mmHg) O2 Sat by Pulse 99 Oximetry 02/17/18 02/17/18 02/17/18 03:47 05:57 07:18 Temperature 97.8 F Pulse Rate 57 Respiratory 16 18 16 Rate Blood Pressure 96/60 (mmHg) O2 Sat by Pulse 99 Oximetry Oxygen Devices in Use Now: None Appearance: Middle aged male sitting up in bed, NAD Eyes: No Scleral Icterus Ears/Nose/Mouth/Throat: Mucous Membranes Moist Respiratory: Symmetrical Chest Expansion and Respiratory Effort, Clear to Auscultation Cardiovascular: NL Sounds; No Murmurs; No JVD, RRR, No Edema Abdominal: NL Sounds; No Tenderness; No Distention Extremities: No Clubbing, Cyanosis, - - B/L knees in knee immobilizers and cryounits Skin: No Nodules or Sclerosis Neurological: Alert and Oriented x 3 Result Diagrams: 02/16/18 06:28 02/16/18 06:28 Assess/Plan/Problems-Billing Mr Esparza is a 58 yo M who has no significant PMHx who presented to the ER after a fall and unfortunately sustained bilateral distal quadriceps tendon rupture. - Patient Problems (1) Quadriceps tendon rupture Current Visit: Yes Status: Acute Code(s): S76.119A - STRAIN OF UNSP QUADRICEPS MUSCLE, FASCIA AND TENDON, INIT SNOMED Code(s): 2123350 Comment: Pt has bilateral quadriceps tendon rupture. Pt is now s/p repair. He is weight bearing as tolerated but must keep the knees in extension. Continue pain managment. Monitor constipation and treat as needed. He will need STR on d/c. (2) BPH (benign prostatic hyperplasia) Current Visit: Yes Status: Acute Code(s): N40.0 - BENIGN PROSTATIC HYPERPLASIA WITHOUT LOWER URINRY TRACT SYMP SNOMED Code(s): 228016044 Comment: Continue flomax. (3) DVT prophylaxis Current Visit: Yes Status: Acute Code(s): JPI5664 - SNOMED Code(s): 135519498 Comment: SQ heparin (4) Full code status Current Visit: Yes Status: Acute Code(s): Z78.9 - OTHER SPECIFIED HEALTH STATUS SNOMED Code(s): 161592491
[2018-02-17] MEDS ORDERED: Senna TAB PO PRN (07:43)
[2018-02-17] MEDS ORDERED: Magnesium Hydroxide LIQ* 30 ML UDC PO PRN (07:43)
[2018-02-17] MEDS: Omeprazole CAP* 20 MG PO SCH ×2 (09:05→20:16)
[2018-02-17] MEDS: Polyethylene Glycol 3350* 17 GM PACKET PO SCH (09:05)
[2018-02-17] MEDS: Tamsulosin CAP* 0.4 MG PO SCH (09:06)
[2018-02-17] MEDS: Docusate CAP* 100 MG PO SCH ×2 (09:06→20:16)
--- NOTE | 2018-02-17 09:07 | PN ---
Progress Note - Progress Note Date of Service: 02/17/18 SOAP: Subjective: POD #1 bilateral quad tendon repair. Pt doing ok, pain in R>L but controlled with meds. Able to stand and take a few slow steps to chair. Denies CP/SOB, n/v , f/c or calf pain. Objective: Vitals: Temp Pulse Resp BP Pulse Ox 97.7 F 57 18 99/60 99 02/17/18 08:05 02/17/18 08:05 02/17/18 08:05 02/17/18 08:05 02/17/18 08:05 Gen: A&Ox3, NAD at rest sitting in bed RLE: Dressing C/D/I. +f/e at ankle and MTPs. N/V intact. LLE: Dressing C/D/I. +f/e at ankle and MTPs. N/V intact. Assessment: POD #1 bilateral quad tendon repair Plan: PT/OT with no flexion at knees, immobilizers on at all times Lovenox for DVT ppx Dressing change tomorrow
[2018-02-17] MEDS: Atenolol TAB* 25 MG PO SCH (09:57)
[2018-02-17] MEDS: oxyCODONE/Acetamin 5/325 MG* TAB PO PRN ×2 (10:14→16:19)
[2018-02-17] MEDS: Ketorolac INJ* 30 MG/ML 1 ML VIAL IV PUSH PRN (10:14)
[2018-02-17] MEDS: Enoxaparin(*) 40 MG/0.4 ML SYR SUBCUT SCH (10:17)
--- NOTE | 2018-02-17 15:43 | OP ---
DATE OF OPERATION: 02/16/18 - ROOM #342 DATE OF : 56 ATTENDING SURGEON: Beatrice Veronica MD FLASH RANGING CREWMEMBER: NEO Cormier ANESTHESIOLOGIST: Dr. Elias. ANESTHESIA: General. PRE-OP DIAGNOSIS: Bilateral distal quadriceps tendon ruptures. POST-OP DIAGNOSIS: Bilateral distal quadriceps tendon ruptures. OPERATIVE PROCEDURE: 1. Right distal quadriceps tendon repair. 2. Left distal quadriceps tendon repair. BRIEF HISTORY/INDICATION: Mr. Esparza is a 58-year-old gentleman who had an hyperextension injury of his knee followed by a fall down some stairs. He was unable to extend his bilateral knees after this and the MRI confirmed bilateral quadriceps tendon tears. He was unable to stand or mobilize and therefore, he was admitted to [facility] for further care. The patient and I discussed his operative and non-operative treatment options. He wished to proceed with surgery. We discussed unilateral versus bilateral tendon repair and he wished to proceed with bilateral. He understood the postoperative and rehab implications of this. Informed consent was obtained from the patient. He understood the risks of surgery included, but were not limited to, bleeding, infection, damage to nearby structures, continued pain, need for further surgery, failure of the repair, extensor lag, chronic pain, knee stiffness, loss of motion, stroke, heart attack, blood clot, and . He wished to proceed. INTRAOPERATIVE FINDINGS: Intraoperatively, the patient's right quadriceps tendon was completely torn distally with large amount of destruction of the medial retinaculum. The patient's left quadriceps tendon was completely destructed distally with additional destruction of the entire medial and lateral retinaculum. TOURNIQUET TIME: Right knee 30 minutes, left knee 32 minutes. COMPLICATIONS: None. ESTIMATED BLOOD LOSS: A total of 200. SPECIMEN: None. DESCRIPTION OF PROCEDURE: Mr. Esparza was identified in the preanesthesia unit. His bilateral knees were marked as the correct operative side. Informed consent was signed and placed in the chart. The patient was taken to the operating room and placed under general anesthesia. A Arguello catheter was placed. Tourniquets were placed on the bilateral thighs. His bilateral lower extremities were prepped and draped in the usual sterile fashion. Preop time- out was made to correctly identify the patient's side and site. Appropriate perioperative antibiotics were given within 1 hour of incision. The left side was started first. Tourniquet was inflated. A midline incision was made and carried down to the extensor mechanism. The distal quadriceps complete destruction was noted immediately as well as a significant portion of the medial and lateral retinaculum was torn. Pulse irrigation was used to completely debride the hematoma that was intraarticular. Superior edge of the patella had no significant amount of tendon. Rongeur was used to establish bleeding bone trough here for repair of the tendon. The edge of the distal quadriceps tendon was cleaned using the rongeur. Three strands of #5 Ethibond suture were used to run longitudinally leaving the free ends distally. A Krackow suture technique was used. A 2/8 drill bit was then used to place 2 longitudinal drill holes through the patella, which were parallel to each other. Rg suture passer was used to pass the ends of the #5 Ethibond through the drill holes. These were brought out distally at the patella. The distal quadriceps tendon was pulled easily through the superior pole of the patella and the sutures were tightly tied. Next, additional #5 Ethibond was used to make further repair at the distal quadriceps tear site. #1 Vicryls were used to repair the medial and lateral retinaculum. The rest of the incisions were closed in a layered fashion using 0 and 2-0 Vicryl. Tourniquet was turned down at 32 minutes. The skin was closed using running 3- 0 Monocryl and Dermabond. Sterile Xeroform, 4x4s, and Webril were placed over this. Robby wrap was placed over this. Attention was turned next to the right side. Tourniquet was inflated. Mid line incision was made, carried down to the extensor mechanism. The distal quadriceps rupture was immediately visualized. Pulse irrigation was used to evacuate the hematoma. A rongeur was used to clear tendon off the distal quad to clean any fibrous debris off the superior pole of the patella. A bleeding bony trough was made for repair of the tendon. The distal tendon was carefully cleaned up with the rongeur as well. Three strands of #5 Ethibond were run in a longitudinal fashion with ends left distally. A Krackow technique was used. 2/8 drill bit was used to run 2 longitudinal drill holes parallel to each other through the patella. Rg suture passer was used to pass the sutures through the drill holes. The tendon was easily repaired through the superior pole of the patella. The repair was tightly tied distally. Additional #5 Ethibond was used to reinforce the repair at the site of the rupture. #1 Vicryl was used to repair any retinaculum tearing medial and laterally. The rest of the incision was closed in a layered fashion 0 and 2-0 Vicryls. Tourniquet was turned down at 30 minutes. The skin was closed using running 3- 0 Monocryl and Dermabond. Sterile Adaptic, 4x4s, and Webril were placed over this. Robby wrap over the Webril. Knee immobilizers were placed on the bilateral legs. The patient's anesthesia was reversed without difficulty. He was taken to PACU in stable condition. Intended weightbearing will be weightbearing as tolerated with the knees in full extension and knee immobilizer at all times. We will have Lovenox for DVT prophylaxis. [id number]/CPS #: [id number] NATALIE
[2018-02-18] MEDS: oxyCODONE/Acetamin 5/325 MG* TAB PO PRN ×3 (00:16→21:57)
[2018-02-18] MEDS: Morphine VIAL* 4 MG/ML VIAL (1 ml vial) IV PRN ×2 (03:35→10:50)
[2018-02-18] MEDS: oxyCODONE TAB* 5 MG TAB PO PRN ×4 (05:55→18:14)
[2018-02-18 06:11] LABS: ABS Basophils 0 10^3/ul (0-0.2); ABS Eosinophils 0.1 10^3/ul (0-0.6); ABS Lymphocytes 1.8 10^3/ul (1.0-4.8); ABS Monocytes 1.4 10^3/ul (0-0.8); ABS Neutrophils 6.2 10^3/ul (1.5-7.7); ABS Nucleated RBC 0 10^3/ul; Hematocrit 40 % (42-52); Hemoglobin 13.5 g/dl (14.0-18.0); Lymphocyte % 18.9 % (25-47); Mean Corpuscular HGB Conc 34 g/dl (31-36); Mean Corpuscular Hemoglobin 31 pg (27-31); Mean Corpuscular Volume 90 fL (80-94); Mean Platelet Volume 8.6 fL (7.4-10.4); Nucleated Red Blood Cells % 0; Platelet Count 171 10^3/ul (150-450); Red Blood Count 4.42 10^6/ul (4.00-5.40); Red Cell Distribution Width 14 % (10.5-15); White Blood Count 9.6 10^3/ul (3.5-10.8)
[2018-02-18] MEDS: Ketorolac INJ* 30 MG/ML 1 ML VIAL IV PUSH PRN ×2 (07:12→13:17)
--- NOTE | 2018-02-18 08:01 | PN ---
Progress Note - Progress Note Date of Service: 02/18/18 SOAP: Subjective: POD #2 Bilateral quad tendon repairs. Pt reports more pain today than previous. Denies paresthesias or numbness. Denies CP/SOB, n/v, f/c. Objective: Vitals: Temp Pulse Resp BP Pulse Ox 98.3 F 62 20 133/75 100 02/18/18 07:25 02/18/18 07:25 02/18/18 07:27 02/18/18 07:25 02/18/18 07:27 Gen: A&Ox3, NAD at rest sitting in bed RLE: Dressing C/D/I. +f/e at ankles and MTPs. N/V intact, calf soft/NT LLE: Dressing C/D/I. +f/e at ankles and MTPs. N/V intact, calf soft/NT Labs: Laboratory Results - last 24 hr 02/18/18 05:43 WBC 9.6 RBC 4.42 Hgb 13.5 L Hct 40 L MCV 90 MCH 31 MCHC 34 RDW 14 Plt Count 171 MPV 8.6 Neut % (Auto) 65.2 Lymph % (Auto) 18.9 L Pitkin % (Auto) 14.6 H Eos % (Auto) 1.0 Baso % (Auto) 0.3 Absolute Neuts (auto) 6.2 Absolute Lymphs (auto) 1.8 Absolute Monos (auto) 1.4 H Absolute Eos (auto) 0.1 Absolute Basos (auto) 0 Absolute Nucleated RBC 0 Nucleated RBC % 0 Assessment: POD #2 B/L quad tendon repairs Plan: Cont PT/OT, immobilizers on at all times, no flexion at knees PMRU consult pending Cont current pain control
[2018-02-18] MEDS: Polyethylene Glycol 3350* 17 GM PACKET PO SCH (08:21)
[2018-02-18] MEDS: Docusate CAP* 100 MG PO SCH ×2 (08:21→21:58)
[2018-02-18] MEDS: Atenolol TAB* 25 MG PO SCH (08:24)
[2018-02-18] MEDS: Tamsulosin CAP* 0.4 MG PO SCH (08:24)
[2018-02-18] MEDS: Omeprazole CAP* 20 MG PO SCH ×2 (08:24→21:57)
[2018-02-18] MEDS: Enoxaparin(*) 40 MG/0.4 ML SYR SUBCUT SCH (10:25)
--- NOTE | 2018-02-18 13:49 | PN ---
Subjective Date of Service: 02/18/18 Interval History: He did have an uncomfortable night last night. this morning his pain slightly better Past Medical History: Unchanged from Admission Objective Active Medications: Acetaminophen (Tylenol Tab*) 650 mg PO Q4H PRN PRN Reason: PAIN Atenolol (Tenormin Tab*) 25 mg PO DAILY [facility] Last Admin: 02/18/18 08:24 Dose: 25 mg Cetirizine HCl (Zyrtec*) 10 mg PO DAILY PRN; Protocol PRN Reason: CONGESTION Last Admin: 02/16/18 22:24 Dose: 10 mg Diazepam (Valium Tab(*)) 5 mg PO Q8H PRN PRN Reason: muscle spasms/pain Docusate Sodium (Colace Cap*) 100 mg PO BID [facility] Last Admin: 02/18/18 08:21 Dose: Not Given Enoxaparin Sodium (Lovenox(*)) 40 mg SUBCUT Q24H [facility] Last Admin: 02/18/18 10:25 Dose: 40 mg Ketorolac Tromethamine (Toradol Inj*) 30 mg IV PUSH Q6H PRN PRN Reason: PAIN Last Admin: 02/18/18 13:17 Dose: 30 mg Magnesium Hydroxide (Milk Of Magnesia Liq*) 30 ml PO BID PRN PRN Reason: CONSTIPATION Morphine Sulfate (Morphine Vial*) 2 mg IV Q4H PRN PRN Reason: PAIN - MILD Last Admin: 02/18/18 10:50 Dose: 2 mg Omeprazole (Prilosec Cap*) 20 mg PO BID [facility] Last Admin: 02/18/18 08:24 Dose: 20 mg Ondansetron HCl (Zofran Inj*) 4 mg IV Q6H PRN PRN Reason: NAUSEA Oxycodone HCl (Roxycodone Tab*) 10 mg PO Q4H PRN PRN Reason: Pain 6-10 Last Admin: 02/18/18 10:25 Dose: 10 mg Oxycodone/Acetaminophen (Percocet 5/325 Tab*) 1 tab PO Q4H PRN PRN Reason: PAIN Last Admin: 02/18/18 08:23 Dose: 1 tab Polyethylene Glycol/Electrolytes (Miralax*) 17 gm PO DAILY [facility] Last Admin: 02/18/18 08:21 Dose: Not Given Ropinirole HCl (Requip Tab*) 1 mg PO BEDTIME PRN PRN Reason: SPASMS Senna (Senokot Tab*) 1 tab PO BEDTIME PRN PRN Reason: CONSTIPATION Last Admin: 02/17/18 20:16 Dose: 1 tab Tamsulosin HCl (Flomax Cap*) 0.4 mg PO DAILY [facility] Last Admin: 02/18/18 08:24 Dose: 0.4 mg Vital Signs - 8 hr 02/18/18 02/18/18 02/18/18 05:55 05:56 07:25 Temperature 98.3 F Pulse Rate 62 Respiratory 20 20 16 Rate Blood Pressure 133/75 (mmHg) O2 Sat by Pulse 100 Oximetry 02/18/18 02/18/18 02/18/18 07:27 08:23 08:38 Temperature Pulse Rate Respiratory 20 18 18 Rate Blood Pressure (mmHg) O2 Sat by Pulse 100 Oximetry 02/18/18 02/18/18 02/18/18 10:25 10:45 10:50 Temperature Pulse Rate Respiratory 18 18 18 Rate Blood Pressure (mmHg) O2 Sat by Pulse Oximetry 02/18/18 02/18/18 02/18/18 11:42 12:10 12:11 Temperature 98.3 F Pulse Rate 65 Respiratory 16 18 18 Rate Blood Pressure 130/77 (mmHg) O2 Sat by Pulse 99 Oximetry Oxygen Devices in Use Now: None Appearance: awake, alert no distress Eyes: No Scleral Icterus, PERRLA Ears/Nose/Mouth/Throat: NL Teeth, Lips, Gums, Clear Oropharnyx Neck: NL Appearance and Movements; NL JVP, Trachea Midline Respiratory: Symmetrical Chest Expansion and Respiratory Effort, Clear to Auscultation Cardiovascular: - - systollic murmur +3/6 LSB Abdominal: NL Sounds; No Tenderness; No Distention Extremities: - - B/L knees in knee immobilizers and cryounits Neurological: Alert and Oriented x 3 Result Diagrams: 02/18/18 05:43 02/16/18 06:28 Assess/Plan/Problems-Billing Mr Esparza is a 58 yo M who has no significant PMHx who presented to the ER after a fall and unfortunately sustained bilateral distal quadriceps tendon rupture. - Patient Problems (1) Quadriceps tendon rupture Current Visit: Yes Status: Acute Code(s): S76.119A - STRAIN OF UNSP QUADRICEPS MUSCLE, FASCIA AND TENDON, INIT SNOMED Code(s): 2253224 Comment: Pt has bilateral quadriceps tendon rupture. Pt is now s/p repair. He is weight bearing as tolerated but must keep the knees in extension. Continue pain managment. Monitor constipation and treat as needed. He will need STR on d/c. (2) RLS (restless legs syndrome) Current Visit: Yes Status: Acute Comment: - Continue Requip 1 mg HS (3) Patent ductus arteriosus Current Visit: Yes Status: Acute Code(s): Q25.0 - PATENT DUCTUS ARTERIOSUS SNOMED Code(s): 66331440 Comment: - He had it repaired as childhood. (4) BPH (benign prostatic hyperplasia) Current Visit: Yes Status: Acute Code(s): N40.0 - BENIGN PROSTATIC HYPERPLASIA WITHOUT LOWER URINRY TRACT SYMP SNOMED Code(s): 163796730 Comment: Continue flomax. (5) DVT prophylaxis Current Visit: Yes Status: Acute Code(s): XWV3273 - SNOMED Code(s): 843706850 Comment: SQ heparin
[2018-02-18] MEDS: Diazepam TAB(*) 5 MG PO PRN (18:18)
[2018-02-18] MEDS ORDERED: Simethicone TAB* 80 MG TAB.CHEW PO ONE (18:19)
[2018-02-18] MEDS ORDERED: rOPINIRole TAB* 1 MG PO PRN (21:00)
[2018-02-19] MEDS: oxyCODONE TAB* 5 MG TAB PO PRN ×3 (01:27→14:44)
[2018-02-19] MEDS: Ketorolac INJ* 30 MG/ML 1 ML VIAL IV PUSH PRN ×2 (01:28→20:17)
[2018-02-19] MEDS: oxyCODONE/Acetamin 5/325 MG* TAB PO PRN ×2 (05:04→12:04)
[2018-02-19] MEDS: Omeprazole CAP* 20 MG PO SCH ×2 (08:09→19:58)
[2018-02-19] MEDS: Docusate CAP* 100 MG PO SCH ×2 (08:09→19:58)
[2018-02-19] MEDS: Polyethylene Glycol 3350* 17 GM PACKET PO SCH (08:09)
[2018-02-19] MEDS: Tamsulosin CAP* 0.4 MG PO SCH (08:09)
[2018-02-19] MEDS: Atenolol TAB* 25 MG PO SCH (08:09)
[2018-02-19] MEDS: Enoxaparin(*) 40 MG/0.4 ML SYR SUBCUT SCH (08:10)
--- NOTE | 2018-02-19 08:15 | PN ---
Progress Note - Progress Note Date of Service: 02/19/18 SOAP: Subjective: []Patient seen at bedside, ICE and immobilizers on. Pain well managed. Was denied at PMRU- SNF rehab bed availability pending. Objective: [] Vital Signs Temp 98.0 F 02/19/18 07:47 Pulse 71 02/19/18 07:47 Resp 18 02/19/18 08:09 BP 116/75 02/19/18 07:47 Pulse Ox 98 02/19/18 07:47 Intake & Output 02/18/18 02/19/18 02/19/18 18:59 06:59 18:59 Intake Total 880 1100 Output Total 350 690 Balance 530 410 Intake: Oral 880 1100 Output: Arguello 350 690 Dressings removed BLE_ both incisions healing well, no drainage or erythema, mild edema calves NT and soft active DF/PF B ankles sensation and circulation intact bilaterally new 4x4s and MAREK wraps applied BLE Assessment: []s/p repair bilateral quad tendon ruptures POD #3 Plan: []WBAT with knee immobilizers on Lovenox 40 mg sq q24 hrs for DVT prophylaxis Await bed availability for SNF rehab
--- NOTE | 2018-02-19 11:19 | PN ---
Subjective Date of Service: 02/19/18 Interval History: Pain better today, complain of increase gas and bloating. No acute events overnight. Awaiting placement for rehab. Past Medical History: Unchanged from Admission Objective Active Medications: Acetaminophen (Tylenol Tab*) 650 mg PO Q4H PRN PRN Reason: PAIN Atenolol (Tenormin Tab*) 25 mg PO DAILY [facility] Last Admin: 02/19/18 08:09 Dose: 25 mg Cetirizine HCl (Zyrtec*) 10 mg PO DAILY PRN; Protocol PRN Reason: CONGESTION Last Admin: 02/16/18 22:24 Dose: 10 mg Diazepam (Valium Tab(*)) 5 mg PO Q8H PRN PRN Reason: muscle spasms/pain Last Admin: 02/18/18 18:18 Dose: 5 mg Docusate Sodium (Colace Cap*) 100 mg PO BID [facility] Last Admin: 02/19/18 08:09 Dose: 100 mg Enoxaparin Sodium (Lovenox(*)) 40 mg SUBCUT Q24H [facility] Last Admin: 02/19/18 08:10 Dose: 40 mg Ketorolac Tromethamine (Toradol Inj*) 30 mg IV PUSH Q6H PRN PRN Reason: PAIN Last Admin: 02/19/18 01:28 Dose: 30 mg Magnesium Hydroxide (Milk Of Magnesia Liq*) 30 ml PO BID PRN PRN Reason: CONSTIPATION Last Admin: 02/19/18 10:52 Dose: 30 ml Morphine Sulfate (Morphine Vial*) 2 mg IV Q4H PRN PRN Reason: PAIN - MILD Last Admin: 02/18/18 10:50 Dose: 2 mg Omeprazole (Prilosec Cap*) 20 mg PO BID [facility] Last Admin: 02/19/18 08:09 Dose: 20 mg Ondansetron HCl (Zofran Inj*) 4 mg IV Q6H PRN PRN Reason: NAUSEA Oxycodone HCl (Roxycodone Tab*) 10 mg PO Q4H PRN PRN Reason: Pain 6-10 Last Admin: 02/19/18 08:09 Dose: 10 mg Oxycodone/Acetaminophen (Percocet 5/325 Tab*) 1 tab PO Q4H PRN PRN Reason: PAIN Last Admin: 02/19/18 05:04 Dose: 1 tab Polyethylene Glycol/Electrolytes (Miralax*) 17 gm PO DAILY [facility] Last Admin: 02/19/18 08:09 Dose: 17 gm Ropinirole HCl (Requip Tab*) 1 mg PO BEDTIME PRN PRN Reason: SPASMS Senna (Senokot Tab*) 1 tab PO BEDTIME PRN PRN Reason: CONSTIPATION Last Admin: 02/17/18 20:16 Dose: 1 tab Simethicone (Mylicon Tab*) 80 mg PO Q6H PRN PRN Reason: bloating Tamsulosin HCl (Flomax Cap*) 0.4 mg PO DAILY [facility] Last Admin: 02/19/18 08:09 Dose: 0.4 mg Vital Signs - 8 hr 02/19/18 02/19/18 02/19/18 03:46 05:04 07:17 Temperature 98.8 F Pulse Rate 66 Respiratory 18 16 18 Rate Blood Pressure 132/73 (mmHg) O2 Sat by Pulse 95 Oximetry 02/19/18 02/19/18 02/19/18 07:47 08:09 10:13 Temperature 98.0 F Pulse Rate 71 Respiratory 16 18 18 Rate Blood Pressure 116/75 (mmHg) O2 Sat by Pulse 98 Oximetry Oxygen Devices in Use Now: None Appearance: awake, alert. no distress Eyes: No Scleral Icterus, - Ears/Nose/Mouth/Throat: Clear Oropharnyx, Mucous Membranes Moist Neck: NL Appearance and Movements; NL JVP, Trachea Midline Respiratory: Symmetrical Chest Expansion and Respiratory Effort, Clear to Auscultation Cardiovascular: No Edema, - - systollic murmur Abdominal: NL Sounds; No Tenderness; No Distention Extremities: - - B/L knees in knee immobilizers and cryounits Result Diagrams: 02/18/18 05:43 02/16/18 06:28 Assess/Plan/Problems-Billing Mr Esparza is a 58 yo M who has no significant PMHx who presented to the ER after a fall and unfortunately sustained bilateral distal quadriceps tendon rupture. - Patient Problems (1) Quadriceps tendon rupture Current Visit: Yes Status: Acute Code(s): S76.119A - STRAIN OF UNSP QUADRICEPS MUSCLE, FASCIA AND TENDON, INIT SNOMED Code(s): 8984220 Comment: - Pt has bilateral quadriceps tendon rupture. - Pt is now s/p repair. - He is weight bearing as tolerated but must keep the knees in extension. - Continue pain managment. d/c lazar today - He will need STR! Medically cleared for discharge pending placement (2) RLS (restless legs syndrome) Current Visit: Yes Status: Chronic Comment: - Continue Requip 1 mg HS (3) Patent ductus arteriosus Current Visit: Yes Status: Chronic Code(s): Q25.0 - PATENT DUCTUS ARTERIOSUS SNOMED Code(s): 12840072 Comment: - He had it repaired as childhood. (4) BPH (benign prostatic hyperplasia) Current Visit: Yes Status: Chronic Code(s): N40.0 - BENIGN PROSTATIC HYPERPLASIA WITHOUT LOWER URINRY TRACT SYMP SNOMED Code(s): 498662729 Comment: Continue flomax. (5) DVT prophylaxis Current Visit: Yes Status: Acute Code(s): ARL9421 - SNOMED Code(s): 932916034 Comment: SQ heparin
[2018-02-19] MEDS: Simethicone TAB* 80 MG TAB.CHEW PO PRN ×2 (12:00→22:17)
[2018-02-19] MEDS: Diazepam TAB(*) 5 MG PO PRN (12:04)
[2018-02-19] MEDS: Metoclopramide IV* 5 MG/ML 2 ML VIAL IV PRN (22:17)
[2018-02-20] MEDS: Docusate CAP* 100 MG PO SCH (08:08)
[2018-02-20] MEDS: Polyethylene Glycol 3350* 17 GM PACKET PO SCH (08:08)
[2018-02-20] MEDS: Atenolol TAB* 25 MG PO SCH (08:08)
[2018-02-20] MEDS: Omeprazole CAP* 20 MG PO SCH (08:09)
[2018-02-20] MEDS: Enoxaparin(*) 40 MG/0.4 ML SYR SUBCUT SCH (08:09)
[2018-02-20] MEDS: Tamsulosin CAP* 0.4 MG PO SCH (08:09)
[2018-02-20] MEDS: oxyCODONE TAB* 5 MG TAB PO PRN (08:09)
[2018-02-20 12:06] VITALS: BP 110/69
[2018-02-20] MEDS: Simethicone TAB* 80 MG TAB.CHEW PO PRN (12:25)
[2018-02-20] MEDS: oxyCODONE/Acetamin 5/325 MG* TAB PO PRN (12:26)
[2018-02-20] MEDS: Metoclopramide IV* 5 MG/ML 2 ML VIAL IV PRN (13:35)
--- NOTE | 2018-02-20 14:06 | PN ---
Subjective Date of Service: 02/20/18 Interval History: Patient seen today.l. no acute distress. had good bowel movement yesterday she had relieved his GI upset. I was just got notified 2:03 pm that he was accepted by [facility]. No acute events overnight Past Medical History: Unchanged from Admission Objective Active Medications: Acetaminophen (Tylenol Tab*) 650 mg PO Q4H PRN PRN Reason: PAIN Atenolol (Tenormin Tab*) 25 mg PO DAILY [facility] Last Admin: 02/20/18 08:08 Dose: 25 mg Cetirizine HCl (Zyrtec*) 10 mg PO DAILY PRN; Protocol PRN Reason: CONGESTION Last Admin: 02/16/18 22:24 Dose: 10 mg Diazepam (Valium Tab(*)) 5 mg PO Q8H PRN PRN Reason: muscle spasms/pain Last Admin: 02/19/18 12:04 Dose: 5 mg Docusate Sodium (Colace Cap*) 100 mg PO BID [facility] Last Admin: 02/20/18 08:08 Dose: 100 mg Enoxaparin Sodium (Lovenox(*)) 40 mg SUBCUT Q24H [facility] Last Admin: 02/20/18 08:09 Dose: 40 mg Ketorolac Tromethamine (Toradol Inj*) 30 mg IV PUSH Q6H PRN PRN Reason: PAIN Last Admin: 02/19/18 20:17 Dose: 30 mg Magnesium Hydroxide (Milk Of Magnesia Liq*) 30 ml PO BID PRN PRN Reason: CONSTIPATION Last Admin: 02/19/18 10:52 Dose: 30 ml Metoclopramide HCl (Reglan Iv*) 10 mg IV Q8H PRN PRN Reason: NAUSEA/ BLOATING Last Admin: 02/20/18 13:35 Dose: 10 mg Morphine Sulfate (Morphine Vial*) 2 mg IV Q4H PRN PRN Reason: PAIN - MILD Last Admin: 02/18/18 10:50 Dose: 2 mg Omeprazole (Prilosec Cap*) 20 mg PO BID [facility] Last Admin: 02/20/18 08:09 Dose: 20 mg Ondansetron HCl (Zofran Inj*) 4 mg IV Q6H PRN PRN Reason: NAUSEA Oxycodone HCl (Roxycodone Tab*) 10 mg PO Q4H PRN PRN Reason: Pain 6-10 Last Admin: 02/20/18 08:09 Dose: 10 mg Oxycodone/Acetaminophen (Percocet 5/325 Tab*) 1 tab PO Q4H PRN PRN Reason: PAIN Last Admin: 02/20/18 12:26 Dose: 1 tab Polyethylene Glycol/Electrolytes (Miralax*) 17 gm PO DAILY JULIAN Last Admin: 02/20/18 08:08 Dose: 17 gm Ropinirole HCl (Requip Tab*) 1 mg PO BEDTIME PRN PRN Reason: SPASMS Senna (Senokot Tab*) 1 tab PO BEDTIME PRN PRN Reason: CONSTIPATION Last Admin: 02/17/18 20:16 Dose: 1 tab Simethicone (Mylicon Tab*) 80 mg PO Q6H PRN PRN Reason: bloating Last Admin: 02/20/18 12:25 Dose: 80 mg Tamsulosin HCl (Flomax Cap*) 0.4 mg PO DAILY [facility] Last Admin: 02/20/18 08:09 Dose: 0.4 mg Vital Signs - 8 hr 02/20/18 02/20/18 02/20/18 07:25 08:00 08:09 Temperature 98.2 F Pulse Rate 71 Respiratory 16 18 18 Rate Blood Pressure 104/60 (mmHg) O2 Sat by Pulse 96 96 Oximetry 02/20/18 02/20/18 02/20/18 10:32 11:10 12:26 Temperature 98.9 F Pulse Rate 71 Respiratory 18 16 18 Rate Blood Pressure 110/69 (mmHg) O2 Sat by Pulse 99 Oximetry Oxygen Devices in Use Now: None Appearance: Awake, Alert no acute distress Eyes: No Scleral Icterus, PERRLA Ears/Nose/Mouth/Throat: NL Teeth, Lips, Gums, Clear Oropharnyx, Mucous Membranes Moist Neck: NL Appearance and Movements; NL JVP, Trachea Midline Respiratory: Symmetrical Chest Expansion and Respiratory Effort, Clear to Auscultation Cardiovascular: RRR, - - + murmur Abdominal: NL Sounds; No Tenderness; No Distention Extremities: No Edema Skin: No Rash or Ulcers Neurological: Alert and Oriented x 3, NL Muscle Strength and Tone Result Diagrams: 02/18/18 05:43 02/16/18 06:28 Assess/Plan/Problems-Billing Mr Esparza is a 58 yo M who has no significant PMHx who presented to the ER after a fall and unfortunately sustained bilateral distal quadriceps tendon rupture. - Patient Problems (1) Quadriceps tendon rupture Current Visit: Yes Status: Acute Code(s): S76.119A - STRAIN OF UNSP QUADRICEPS MUSCLE, FASCIA AND TENDON, INIT SNOMED Code(s): 8567433 Comment: - Pt has bilateral quadriceps tendon rupture. - Pt is now s/p repair. - He is weight bearing as tolerated but must keep the knees in extension. - Continue pain managment. d/c lazar today - He will need STR! Medically cleared for discharge pending placement (2) RLS (restless legs syndrome) Current Visit: Yes Status: Chronic Comment: - Continue Requip 1 mg HS (3) Patent ductus arteriosus Current Visit: Yes Status: Chronic Code(s): Q25.0 - PATENT DUCTUS ARTERIOSUS SNOMED Code(s): 79727093 Comment: - He had it repaired as childhood. (4) BPH (benign prostatic hyperplasia) Current Visit: Yes Status: Chronic Code(s): N40.0 - BENIGN PROSTATIC HYPERPLASIA WITHOUT LOWER URINRY TRACT SYMP SNOMED Code(s): 260997355 Comment: Continue flomax. (5) DVT prophylaxis Current Visit: Yes Status: Acute Code(s): [id number] - SNOMED Code(s): 684627120 Comment: SQ heparin
--- NOTE | 2018-02-20 15:15 | PN ---
Progress Note - Progress Note Date of Service: 02/20/18 SOAP: Subjective: []Patient seen and examined at bedside. He is feeling well with well controlled lower extremity pain. Denies lower extremity numbness or tingling. Denies CP, SOB, dizziness, nausea. Objective: []General: Well appearing, NAD BL LE: Bilateral thighs are soft. Dressings were change and immobilizers replaced. Incisions CDI without erythema or discharge. Bilaterally DF/PF intact , DP 2+, sensation intact distally, capillary refill less than two seconds distally and calves supple and nontender without erythema, edema or palpable cords. Assessment: []s/p repair bilateral quad tendon ruptures POD #4 Plan: []WBAT with knee immobilizers on Daily dry sterile dressing change Lovenox 40 mg sq q24 hrs for DVT prophylaxis Await bed availability for SNF rehab Vital Signs Temp 98.9 F 02/20/18 11:10 Pulse 71 02/20/18 11:10 Resp 18 02/20/18 14:29 BP 110/69 02/20/18 11:10 Pulse Ox 99 02/20/18 11:10 Intake & Output 02/19/18 02/20/18 02/20/18 18:59 06:59 18:59 Intake Total 330 2110 120 Output Total 1175 200 0 Balance -845 1910 120 Intake: Oral 330 2110 120 Output: Urine 200 200 0 Arguello 800 Liquid Stool 175 Other: # Bowel Movements 1 Estimated Stool Amount Large Laboratory Last Values WBC 9.6 10^3/ul (3.5-10.8) 02/18/18 05:43 RBC 4.42 10^6/ul (4.00-5.40) 02/18/18 05:43 Hgb 13.5 g/dl (14.0-18.0) L 02/18/18 05:43 Hct 40 % (42-52) L 02/18/18 05:43 MCV 90 fL (80-94) 02/18/18 05:43 MCH 31 pg (27-31) 02/18/18 05:43 MCHC 34 g/dl (31-36) 02/18/18 05:43 RDW 14 % (10.5-15) 02/18/18 05:43 Plt Count 171 10^3/ul (150-450) 02/18/18 05:43 MPV 8.6 fL (7.4-10.4) 02/18/18 05:43 Neut % (Auto) 65.2 % (38-83) 02/18/18 05:43 Lymph % (Auto) 18.9 % (25-47) L 02/18/18 05:43 [place] % (Auto) 14.6 % (0-7) H 02/18/18 05:43 Eos % (Auto) 1.0 % (0-6) 02/18/18 05:43 Baso % (Auto) 0.3 % (0-2) 02/18/18 05:43 Absolute Neuts (auto) 6.2 10^3/ul (1.5-7.7) 02/18/18 05:43 Absolute Lymphs (auto) 1.8 10^3/ul (1.0-4.8) 02/18/18 05:43 Absolute Monos (auto) 1.4 10^3/ul (0-0.8) H 02/18/18 05:43 Absolute Eos (auto) 0.1 10^3/ul (0-0.6) 02/18/18 05:43 Absolute Basos (auto) 0 10^3/ul (0-0.2) 02/18/18 05:43 Absolute Nucleated RBC 0 10^3/ul 02/18/18 05:43 Nucleated RBC % 0 02/18/18 05:43 ESR 9 mm/Hr (0-20) 02/15/18 13:48 INR (Anticoag Therapy) 0.88 (0.77-1.02) 02/16/18 06:28 APTT 35.4 seconds (26.0-36.3) 02/15/18 20:03 Sodium 140 mmol/L (135-145) 02/16/18 06:28 Potassium 4.1 mmol/L (3.5-5.0) 02/16/18 06:28 Chloride 109 mmol/L (101-111) 02/16/18 06:28 Carbon Dioxide 25 mmol/L (22-32) 02/16/18 06:28 Anion Gap 6 mmol/L (2-11) 02/16/18 06:28 BUN 20 mg/dL (6-24) 02/16/18 06:28 Creatinine 0.80 mg/dL (0.67-1.17) 02/16/18 06:28 Est GFR ( Amer) 119.3 (>60) 02/16/18 06:28 Est GFR (Non-Af Amer) 98.6 (>60) 02/16/18 06:28 BUN/Creatinine Ratio 25.0 (8-20) H 02/16/18 06:28 Glucose 106 mg/dL (70-100) H 02/16/18 06:28 Uric Acid 7.1 mg/dL (4.4-7.6) 02/15/18 11:04 Calcium 8.6 mg/dL (8.6-10.3) 02/16/18 06:28 Total Bilirubin 1.00 mg/dL (0.2-1.0) 02/15/18 11:04 AST 26 U/L (13-39) 02/15/18 11:04 ALT 24 U/L (7-52) 02/15/18 11:04 Alkaline Phosphatase 48 U/L (34-104) 02/15/18 11:04 C-Reactive Protein 4.06 mg/L (<8.01) 02/15/18 11:04 Total Protein 5.9 g/dL (6.4-8.9) L 02/15/18 11:04 Albumin 3.7 g/dL (3.2-5.2) 02/15/18 11:04 Globulin 2.2 g/dL (2-4) 02/15/18 11:04 Albumin/Globulin Ratio 1.7 (1-3) 02/15/18 11:04
--- NOTE | 2018-02-21 07:52 | DS ---
DISCHARGE SUMMARY: DATE OF ADMISSION: 02/15/18. DATE OF DISCHARGE TO [facility]: 02/20/18. FINAL DISCHARGE DIAGNOSES: 1. Bilateral quadriceps tendon rupture, status post repair. 2. Restless leg syndrome. 3. Patent ductus arteriosus status post repair in childhood. 4. Benign prostate hypertrophy. HOSPITAL COURSE: The patient presented to [facility] on 02/15/18, after he incurred a non-traumatic sudden rupture of bilateral tendon which led to the fall on the stairs as per patient and he had difficulty ambulating. He was brought into the emergency room and he was found to have bilateral quadriceps tendon repair. Orthopedic was consulted and he was taken to the OR on 02/16/18 for bilateral distal quadriceps tendon rupture, status post repair bilaterally. Patient tolerated the procedure well. He has been undergoing physical therapy and pain management and referral for [facility] was placed and he was accepted today. Therefore, he was deemed stable for discharge to [facility]. PHYSICAL EXAM AND ASSESSMENT AND PLAN: Please refer to my progress note done from earlier today. For his quadriceps tendon rupture, he is weightbearing as tolerated. He must keep the knees in extension and immobilized. He will have the Arguello catheter removed and pain management. For his restless leg syndrome, continue Requip 1 mg q.h. For his patent ductus arteriosus, status post repair. History of benign prostatic hypertrophy, continue Flomax. DISCHARGE MEDICATIONS: 1. Continue his atenolol 25 mg daily. 2. Tylenol 650 mg p.o. q.4 hours p.r.n. 3. Zyrtec 10 mg daily. 4. Valium 5 mg p.o. q.8 hours p.r.n. for spasm. 5. Colace 100 mg b.i.d. 6. Lovenox 40 mg subcu 24 hours for DVT prophylaxis. 7. Milk of mag 30 mL b.i.d. p.r.n. constipation. 8. Prilosec 20 b.i.d. 9. Percocet 5/325 one tab q.4 hours p.r.n. for mild to moderate. 10. Oxycodone 10 mg p.o. q.4 hours for pain 6 - 10 which is severe. 11. MiraLAX 17 g p.o. daily, hold for diarrhea. 12. Requip 1 mg p.o. at bedtime. 13. Senna 1 tab p.o. at bedtime p.r.n. constipation. 14. Simethicone 80 mg q.6 hours p.r.n. bloating. 15. Flomax 0.4 mg daily. DISCHARGE INSTRUCTIONS: To [facility] for physical therapy. The patient may have weightbearing, but he has to keep his both legs extended at all time. Please call Orthopedic to follow up with the patient in consultation while in [facility]. [id number]/[facility] #: [id number] NATALIE
== END 2018-02-20 14:40 | DRG 317 ==
LOC: ED 09:33 → MED 13:02 → OBSVTOIN 02-16 11:32 → SSU 02-16 21:42
PROVIDERS: ADMIT Hospitalist; ATTEND Internal Medicine
PROC: 0LQL0ZZ Repair Right Upper Leg Tendon, Open Approach (ICD-10-PCS; 2018-02-16)
PROC: 0LQM0ZZ Repair Left Upper Leg Tendon, Open Approach (ICD-10-PCS; principal; 2018-02-16 16:00)
DX: S76.112A Strain of left quadriceps muscle, fascia and tendon, initial encounter (principal); S76.111A Strain of right quadriceps muscle, fascia and tendon, initial encounter; N40.0 Benign prostatic hyperplasia without lower urinary tract symptoms; G25.81 Restless legs syndrome; M25.462 Effusion, left knee; W10.8XXA Fall (on) (from) other stairs and steps, initial encounter; M25.461 Effusion, right knee; M70.42 Prepatellar bursitis, left knee; M70.41 Prepatellar bursitis, right knee; K21.9 Gastro-esophageal reflux disease without esophagitis; Z23 Encounter for immunization; Y92.009 Unspecified place in unspecified non-institutional (private) residence as the place of occurrence of the external cause; Z80.0 Family history of malignant neoplasm of digestive organs; Z82.49 Family history of ischemic heart disease and other diseases of the circulatory system; Z87.891 Personal history of nicotine dependence; Z72.89 Other problems related to lifestyle; Z79.01 Long term (current) use of anticoagulants; Z98.52 Vasectomy status; R14.0 Abdominal distension (gaseous)
CPT/HCPCS: 36415; 71045; 76001; 80048; 80053; 82565; 84520; 84550; 85025; 85610; 85652; 85730; 86140; 90686; 93005; 99284; A9270-GY; G0378; G8978-GP-CM; G8979-GP-CK; J0690; J1100; J1170; J1644; J1650; J1885; J2250; J2270; J2405; J2704; J2765; J3010

== ENCOUNTER 2018-02-20 13:59 | Inpatient (IN) | payer OTHER ==
[2018-02-20] MEDS ORDERED: oxyCODONE/Acetamin 5/325 MG* TAB PO PRN (15:53)
[2018-02-20] MEDS ORDERED: Polyethylene Glycol 3350* 17 GM PACKET PO PRN (15:55)
[2018-02-20] MEDS: oxyCODONE/Acetamin 5/325 MG* TAB PO PRN (17:51)
[2018-02-20] MEDS: Methocarbamol TAB* 500 MG PO PRN (17:52)
--- NOTE | 2018-02-20 20:05 | HP ---
ADMISSION HISTORY AND PHYSICAL: DATE OF ADMISSION: 02/20/18 REASON FOR ADMISSION: Bilateral quadriceps tendon rupture. HISTORY OF PRESENT ILLNESS: Valente Esparza is a 58-year-old male. 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 He was going down a flight of stairs and his legs just gave out and he fell down the stairs. The patient called for help and he was put in an ambulance and brought to [facility]. The patient had MRIs of bilateral knees, which showed bilateral distal quadriceps tendon tears. He was admitted to [facility]. He was evaluated by Dr. Beatrice Veronica. Dr. Veronica felt that surgery was the best option. The patient was taken to the operating room on 02/17/18. He underwent a right distal quadriceps tendon repair and a left distal quadriceps tendon repair. He was put in knee immobilizers. He was allowed to weight bear, but not able to bend his knees. He is felt to have physical therapy and occupational therapy needs. He is now being admitted for inpatient rehab so that he might return to independent living. PAST MEDICAL HISTORY: Significant for benign prostatic hypertrophy. He also has a history of hypertension and restless leg syndrome. CURRENT MEDICATIONS: Include: 1. Flomax. 2. He is also on Lovenox for DVT prophylaxis. 3. Prilosec. 4. Tenormin. 5. Percocet for pain control. 6. Requip as needed. ALLERGIES: He has no known drug allergies. SOCIAL HISTORY: He is a nonsmoker, rare drinker. He lives with his in a 2 - story house. He was working full-time at [employer]. 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 REVIEW OF SYSTEMS: The patient reports no current shortness of breath or chest pain. PHYSICAL EXAMINATION VITAL SIGNS: The patient's temperature is 98.2, blood pressure is 102/64, pulse 74, respirations 16. HEENT: Extraocular movements were intact. Tongue is midline. NECK: Supple. LUNGS: Sound clear to auscultation bilaterally. HEART: Sounds are regular. S1 and S2 were audible. ABDOMEN: Soft and nontender. EXTREMITIES: Both knees are in knee immobilizers. His peripheral pulses were intact. No edema is noted. NEUROLOGIC: The patient was awake, alert. Muscle strength appeared to be 5/5 in both upper and lower extremities, but he is obviously not able to bend his knees. FUNCTIONAL EXAM: He transfers with mod assist. ASSESSMENT: Bilateral quadriceps tendon rupture with bilateral quadriceps tendon repair. PLAN: Our plan is to integrate him into a comprehensive and therapeutic rehab program with the following goals: 1. Physical Therapy will see the patient. They are going to work on functional transfer training, ambulation training with a walker. 2. Occupational Therapy will see the patient, work on his activities of daily living including toileting and toilet transfers with the immobilizers on. 3. Lovenox for DVT prophylaxis. 4. Adequate analgesia. 5. His bowels will be regulated. 6. adoption services manager will be closely involved to make sure that any services and equipment the patient requires are in place prior to discharge. 7. Family training as appropriate. 8. Home with appropriate services. ESTIMATED LENGTH OF STAY: 10 to 14 days. [id number]/[facility] #: [id number] NATALIE
[2018-02-20] MEDS: Simethicone TAB* 80 MG TAB.CHEW PO PRN (20:27)
[2018-02-20] MEDS: Docusate CAP* 100 MG PO SCH (21:08)
[2018-02-20] MEDS: Senna TAB PO SCH (21:08)
[2018-02-20] MEDS: Sodium Phosphate ADULT ENEMA* 118 ml bottle PR PRN (21:34)
[2018-02-20] MEDS: rOPINIRole TAB* 1 MG PO PRN (21:54)
[2018-02-21] MEDS: Methocarbamol TAB* 500 MG PO PRN ×3 (01:52→17:20)
[2018-02-21] MEDS: oxyCODONE/Acetamin 5/325 MG* TAB PO PRN ×2 (04:13→08:59)
[2018-02-21] MEDS: Omeprazole CAP* 20 MG PO SCH (05:35)
[2018-02-21 06:31] LABS: ABS Basophils 0 10^3/ul (0-0.2); ABS Eosinophils 0.3 10^3/ul (0-0.6); ABS Lymphocytes 1.2 10^3/ul (1.0-4.8); ABS Monocytes 1.1 10^3/ul (0-0.8); ABS Neutrophils 5.1 10^3/ul (1.5-7.7); ABS Nucleated RBC 0 10^3/ul; Eosinophil % 3.6 % (0-6); Hematocrit 38 % (42-52); Lymphocyte % 15.2 % (25-47); Mean Corpuscular HGB Conc 34 g/dl (31-36); Mean Corpuscular Hemoglobin 31 pg (27-31); Mean Corpuscular Volume 90 fL (80-94); Mean Platelet Volume 8.6 fL (7.4-10.4); Nucleated Red Blood Cells % 0; Platelet Count 180 10^3/ul (150-450); Red Blood Count 4.24 10^6/ul (4.00-5.40); Red Cell Distribution Width 13 % (10.5-15); White Blood Count 7.6 10^3/ul (3.5-10.8)
[2018-02-21 06:46] LABS: EGFR Non-African American 107.9 (>60)
[2018-02-21] MEDS: Tamsulosin CAP* 0.4 MG PO SCH (09:01)
[2018-02-21] MEDS: Simethicone TAB* 80 MG TAB.CHEW PO PRN ×2 (09:01→16:05)
[2018-02-21] MEDS: Docusate CAP* 100 MG PO SCH ×2 (09:01→20:55)
[2018-02-21] MEDS: Atenolol TAB* 25 MG PO SCH (09:01)
[2018-02-21] MEDS: Enoxaparin(*) 40 MG/0.4 ML SYR SUBCUT SCH (09:05)
[2018-02-21] MEDS ORDERED: oxyCODONE/Acetamin 5/325 MG* TAB PO PRN (11:21)
[2018-02-21] MEDS ORDERED: Metoclopramide IV* 5 MG/ML 2 ML VIAL IV PRN (19:30)
[2018-02-21] MEDS ORDERED: Magnesium Hydroxide LIQ* 30 ML UDC PO PRN (19:49)
--- NOTE | 2018-02-21 19:55 | PN ---
Progress Note Date of Service: 02/21/18 Note: PATRICIO BONDS was visited. Therapy notes read and reviewed. He had significant abdominal pain last night and an abdominal x-ray was ordered showing an ileus. He is now on clear liquids and will start IV fluids. Had 2 BM yesterday after Fleet's enema. Will check x-ray in am. May advance diet to full liquids if better. Will try to hold opioids; Tramadol for pain if needed. Have added IV reglan Current Medications: Active Medications Generic Name Dose Route Start Last Admin Trade Name Freq PRN Reason Stop Dose Admin Acetaminophen 650 mg 02/20/18 15:45 Tylenol Tab* PO Q6H PRN FEVER/PAIN Atenolol 25 mg 02/21/18 09:00 02/21/18 09:01 Tenormin Tab* PO 25 mg DAILY JULIAN Administration Docusate Sodium 100 mg 02/20/18 21:00 02/21/18 09:01 Colace Cap* PO 100 mg BID JULIAN Administration Enoxaparin Sodium 40 mg 02/21/18 09:00 02/21/18 09:05 Lovenox(*) SUBCUT 40 mg Q24H JULIAN Administration Dextrose/Sodium Chloride 1,000 mls @ 75 mls/hr 02/21/18 20:00 D5w 1/2 Ns 1000 Ml Bag* IV PER RATE JULIAN Magnesium Hydroxide 30 ml 02/21/18 19:49 Milk Of Magnesia Liq* PO Q6H PRN CONSTIPATION Methocarbamol 750 mg 02/20/18 15:55 02/21/18 17:20 Robaxin Tab* PO 750 mg TID PRN Administration SPASMS Metoclopramide HCl 5 mg 02/21/18 19:30 Reglan Iv* IV Q6H PRN NAUSEA/VOMITING Omeprazole 20 mg 02/21/18 06:00 02/21/18 05:35 Prilosec Cap* PO 20 mg 0600 JULIAN Administration Oxycodone/Acetaminophen 1 tab 02/21/18 11:21 02/21/18 12:47 Percocet 5/325 Tab* PO 1 tab Q6H PRN Administration PAIN - MODERATE TO SEVERE Ropinirole HCl 1 mg 02/20/18 15:52 02/20/18 21:54 Requip Tab* PO 1 mg BEDTIME PRN Administration LEG CRAMPS Senna 2 tab 02/20/18 21:00 02/20/18 21:08 Senokot Tab* PO 2 tab BEDTIME JULIAN Administration Simethicone 80 mg 02/20/18 20:14 02/21/18 16:05 Mylicon Tab* PO 80 mg Q4H PRN Administration GAS Sodium Biphosphate/Sodium Phosphate 1 bottle 02/20/18 15:45 02/20/18 21:34 Fleet Enema* [place] 1 bottle DAILY PRN Administration CONSTIPATION Tamsulosin HCl 0.4 mg 02/21/18 09:00 02/21/18 09:01 Flomax Cap* PO 0.4 mg DAILY JULIAN Administration Tramadol HCl 50 mg 02/21/18 19:28 Ultram* PO Q6H PRN PAIN - MODERATE Vital Signs: Vital Signs Temp Pulse Resp BP Pulse Ox 98.0 F 71 20 111/64 98 02/21/18 16:09 02/21/18 16:09 02/21/18 17:20 02/21/18 16:09 02/21/18 16:26 Lab Results: Laboratory Results - last 24 hr 02/21/18 02/21/18 06:04 06:04 WBC 7.6 RBC 4.24 Hgb 13.0 L Hct 38 L MCV 90 MCH 31 MCHC 34 RDW 13 Plt Count 180 MPV 8.6 Neut % (Auto) 66.4 Lymph % (Auto) 15.2 L [place] % (Auto) 14.4 H Eos % (Auto) 3.6 Baso % (Auto) 0.4 Absolute Neuts (auto) 5.1 Absolute Lymphs (auto) 1.2 Absolute Monos (auto) 1.1 H Absolute Eos (auto) 0.3 Absolute Basos (auto) 0 Absolute Nucleated RBC 0 Nucleated RBC % 0 Sodium 139 Potassium 4.2 Chloride 105 Carbon Dioxide 28 Anion Gap 6 BUN 20 Creatinine 0.74 Est GFR ( Amer) 130.5 Est GFR (Non-Af Amer) 107.9 BUN/Creatinine Ratio 27.0 H Glucose 122 H Calcium 8.7 Total Bilirubin 1.00 AST 30 ALT 33 Alkaline Phosphatase 63 Total Protein 5.4 L Albumin 3.1 L Globulin 2.3 Albumin/Globulin Ratio 1.3 Exam: LUNGS: Clear bilaterally HEART: reg rhythm ABDOMEN: distended. +BS EXTREMITIES: Legs in immobilizers NEUROLOGIC: alert, able to move 4 extremities. No focal weakness. Knee immobilized Assessment/Plan: 1. Bilateral quadriceps tendon rupture: WBAT in immobilizers. PT/OT 2. Ileus: Clear liquid diet, check abdominal x-ray in am. IV fluids. Reglan 3. Restless Legs: Requip 4. BPH: Flomax 5. DVT Prophylaxis: Lovenox 6. Analgesia: Hold percocet, try Ulram 02/21/18 20:12 02/21/18 20:14
[2018-02-21] MEDS: D5W 1/2 NS 1000 ML BAG* 1,000 ML IV SCH (20:13)
[2018-02-21] MEDS: Senna TAB PO SCH (20:55)
[2018-02-21] MEDS: traMADol TAB* 50 MG PO PRN (20:57)
[2018-02-21] MEDS: Sodium Phosphate ADULT ENEMA* 118 ml bottle PR PRN (22:19)
[2018-02-22] MEDS: Acetaminophen TAB* 325 MG PO PRN ×2 (00:07→21:10)
[2018-02-22] MEDS: Simethicone TAB* 80 MG TAB.CHEW PO PRN ×3 (00:08→19:09)
[2018-02-22] MEDS: Omeprazole CAP* 20 MG PO SCH (05:50)
[2018-02-22] MEDS: Atenolol TAB* 25 MG PO SCH (09:05)
[2018-02-22] MEDS: Enoxaparin(*) 40 MG/0.4 ML SYR SUBCUT SCH (09:05)
[2018-02-22] MEDS: Tamsulosin CAP* 0.4 MG PO SCH (09:05)
[2018-02-22] MEDS: Docusate CAP* 100 MG PO SCH ×2 (09:05→19:44)
[2018-02-22] MEDS: Methocarbamol TAB* 500 MG PO PRN ×3 (09:05→22:20)
[2018-02-22] MEDS: Metoclopramide IV* 5 MG/ML 2 ML VIAL IV SCH ×2 (14:03→17:46)
[2018-02-22] MEDS: traMADol TAB* 50 MG PO PRN ×2 (16:08→22:19)
[2018-02-22] MEDS: D5W 1/2 NS 1000 ML BAG* 1,000 ML IV SCH (18:09)
[2018-02-22] MEDS: Senna TAB PO SCH (19:44)
--- NOTE | 2018-02-22 20:44 | PN ---
Progress Note Date of Service: 02/22/18 Note: PATRICIO BONDS was visited. Therapy notes read and reviewed. He feels like his abdominal pain is slightly less but belly still distended. Abdominal x-ray unchanged but he had 5 BMs today. He got enema yesterday Current Medications: Active Medications Generic Name Dose Route Start Last Admin Trade Name Freq PRN Reason Stop Dose Admin Acetaminophen 650 mg 02/20/18 15:45 02/22/18 00:07 Tylenol Tab* PO 650 mg Q6H PRN Administration FEVER/PAIN Atenolol 25 mg 02/21/18 09:00 02/22/18 09:05 Tenormin Tab* PO 25 mg DAILY JULIAN Administration Docusate Sodium 100 mg 02/20/18 21:00 02/22/18 19:44 Colace Cap* PO Not Given BID JULIAN Enoxaparin Sodium 40 mg 02/21/18 09:00 02/22/18 09:05 Lovenox(*) SUBCUT 40 mg Q24H JULIAN Administration Dextrose/Sodium Chloride 1,000 mls @ 75 mls/hr 02/21/18 20:00 02/22/18 18:09 D5w 1/2 Ns 1000 Ml Bag* IV 02/23/18 09:19 75 mls/hr PER RATE JULIAN Administration Lactulose 30 ml 02/21/18 19:50 Lactulose* PO Q6H PRN CONSTIPATION Magnesium Hydroxide 30 ml 02/21/18 19:49 Milk Of Magnesia Liq* PO Q6H PRN CONSTIPATION Methocarbamol 750 mg 02/20/18 15:55 02/22/18 16:13 Robaxin Tab* PO 750 mg TID PRN Administration SPASMS Metoclopramide HCl 5 mg 02/22/18 12:00 02/22/18 17:46 Reglan Iv* IV 5 mg Q6H JULIAN Administration Omeprazole 20 mg 02/21/18 06:00 02/22/18 05:50 Prilosec Cap* PO 20 mg 0600 JULIAN Administration Oxycodone/Acetaminophen 1 tab 02/21/18 11:21 02/21/18 12:47 Percocet 5/325 Tab* PO 1 tab Q6H PRN Administration PAIN - MODERATE TO SEVERE Ropinirole HCl 1 mg 02/20/18 15:52 02/20/18 21:54 Requip Tab* PO 1 mg BEDTIME PRN Administration LEG CRAMPS Senna 2 tab 02/20/18 21:00 02/22/18 19:44 Senokot Tab* PO Not Given BEDTIME JULIAN Simethicone 80 mg 02/20/18 20:14 02/22/18 19:09 Mylicon Tab* PO 80 mg Q4H PRN Administration GAS Sodium Biphosphate/Sodium Phosphate 1 bottle 02/20/18 15:45 02/21/18 22:19 Fleet Enema* [place] 1 bottle DAILY PRN Administration CONSTIPATION Tamsulosin HCl 0.4 mg 02/21/18 09:00 02/22/18 09:05 Flomax Cap* PO 0.4 mg DAILY JULIAN Administration Tramadol HCl 50 mg 02/21/18 19:28 02/22/18 16:08 Ultram* PO 50 mg Q6H PRN Administration PAIN - MODERATE Vital Signs: Vital Signs Temp Pulse Resp BP Pulse Ox 98.7 F 77 18 122/73 100 02/22/18 15:24 02/22/18 15:24 02/22/18 18:45 02/22/18 15:24 02/22/18 16:33 Exam: LUNGS: Clear bilaterally HEART: reg rhythm ABDOMEN: distended. +BS EXTREMITIES: Legs in immobilizers NEUROLOGIC: alert, able to move 4 extremities. No focal weakness. Knee immobilized Assessment/Plan: 1. Bilateral quadriceps tendon rupture: WBAT in immobilizers. PT/OT 2. Ileus: Clear liquid diet, IV fluids. Reglan. Will start full liquids in am 3. Restless Legs: Requip 4. BPH: Flomax 5. DVT Prophylaxis: Lovenox 6. Analgesia: Hold percocet, try Ulram 02/22/18 20:45
[2018-02-23] MEDS: Metoclopramide IV* 5 MG/ML 2 ML VIAL IV SCH ×3 (00:15→12:10)
[2018-02-23] MEDS: Simethicone TAB* 80 MG TAB.CHEW PO PRN ×4 (00:23→20:58)
[2018-02-23] MEDS ORDERED: Famotidine TAB* 20 MG PO PRN (00:28)
[2018-02-23] MEDS: rOPINIRole TAB* 1 MG PO PRN ×2 (01:09→20:13)
[2018-02-23] MEDS: Omeprazole CAP* 20 MG PO SCH (04:55)
[2018-02-23] MEDS: Acetaminophen TAB* 325 MG PO PRN ×3 (04:55→17:33)
[2018-02-23] MEDS: Atenolol TAB* 25 MG PO SCH (09:02)
[2018-02-23] MEDS: Tamsulosin CAP* 0.4 MG PO SCH (09:02)
[2018-02-23] MEDS: Docusate CAP* 100 MG PO SCH ×2 (09:02→20:13)
[2018-02-23] MEDS: Enoxaparin(*) 40 MG/0.4 ML SYR SUBCUT SCH (09:03)
[2018-02-23] MEDS: Methocarbamol TAB* 500 MG PO PRN ×2 (09:05→17:34)
--- NOTE | 2018-02-23 13:01 | PMRUTEAM ---
PMRU: Team Meeting Current Status: Nursing: Current Status Skin Deviations [Bilateral Incision Knee] Skin Deviation Description [ immobilizers and cryo units in place Bilateral Knee] Physical Therapy: Current Status Bed Mobility Assistance Supervision Transfer Moblility Assistance Supervision,Contact Guard Assist Transfer/Bed Mobility Rolling Walker Recommended Devices Ambulation Assistance Supervision Ambulation Assistive Devices Rolling Walker Number of Feet Patient 45 Ambulated Stairs Assistance 2 or More Person Assist Curb Not Tested Manual Wheelchair Control/ Bilateral UE's Technique Wheelchair Propulsion Ability Standby Assistance Wheelchair Distance (ft) 150 x 2 Occupational Therapy: Current Status Upper Body Dressing Supervision Lower Body Dressing Total Assist Bathing Mod Assist Toileting Total Assist,2 Person Assist Toilet Transfer Min Assist,2 Person Assist Eating Independent Rec Therapy: Current Status Summary of Assessment and Pt. was open to conversation - talkative and Clinical Impression engaged throughout. Pt. identified with interests and active involvement in them prior to admission . Pt. states it has been difficult to engage in his physical interests for 2 years but hopes he can return to them. Pt. states he enjoys his life . Pt. was open to continued leisure visits while on the unit. Treatment Goals Pt. will engage in leisure activities while on the unit. Treatment Plan Provide RT services and encourage involvement. Social Work: Current Status Discharge Plan return home with home care svs and family support Potential for Family Training pt's is involved and supportive Anticipated Discharge Home Destination Discharge With home care svs and family support Goals: Physical Therapy: Initial Goals Bed Mobility Assistance Independent Transfer Mobility Assistance Independent Transfer/Bed Mobility Rolling Walker Recommended Devices Ambulation Independent Ambulation Recommended Devices Rolling Walker Ambulation Distance 50 Wheelchair Propulsion Ability Independent Wheelchair Distance (ft) 150 Stairs Assistance Independent Stair Recommended Devices Two Rails Number of Stairs 1 flight Physical Therapy: Updated Goals Transfer/Bed Mobility Rolling Walker Recommended Devices Occupational Therapy: Initial Goals Goals to be Completed in (Days 14 ) Upper Body Bathing Routine Independent Lower Body Bathing Routine Modified Independent with Upper Body Dressing Routine Independent Lower Body Dressing Routine Minimal Contact Assist Toilet Hygeine and Clothing Modified Independent with Management Routine Toilet Transfer Routine Modified Independent with Step-In Shower Transfer Supervision/Set Up Routine Functional Transfers for ADL Modified Independent with Grooming Routine Independent Feeding Routine Independent Social Work: Goals Discharge Plan return home with home care svs and family support Potential for Family Training pt's is involved and supportive Anticipated Discharge Home Destination Discharge With home care svs and family support Care Plan: Care Plan ADL's - Improve/Maintain Start: 02/21/18 14:47 Freq: DAILY Status: Active Target: Protocol: Activity Type Activity Date Activity User E-Sign Co-Sign Detail Recorded Client Recorded Date Recorded By Document 02/23/18 11:23 [id number] 02/23/18 11:23 [id number] 02/23/18 11:23 PMRU Outcome: ADL's/ADL Transfers Orders/Interventions Occupational Therapy Evaluation & Treatment Communication Tool in Patient Room Patient to receive OT 5x/wk for 60-120 Therex min/day Self Care Management Group Therapy UE/LE ADL's with Assist Yes: min A for LE ADLs ADL Transfers with Assist Yes: mod I Toileting: Transfers,Clothing Management Yes: mod I ,Hygeine w/Assist Light Kitchen/Laundry w/Assist No Progression Toward Outcome/Goals Progressing Outcome/Goals Met Pt progressing well with bed mobility, able to get to EOB without staff assist today. Pt tolerates BLE dressing change and bathing with less c/o pain and less tremors today as well. DVT Prophylaxis- Improve/Maintain Start: 02/20/18 22:40 Freq: QSHIFT Status: Active Target: Protocol: Activity Type Activity Date Activity User E-Sign Co-Sign Detail Recorded Client Recorded Date Recorded By Document 02/23/18 02:13 [id number] 02/23/18 02:14 [id number] 02/23/18 02:13 PMRU Outcome: DVT Prophylaxis Outcome/Goals Remains Free of DVT Free of complications from current DVT Demonstrates Knowledge of DVT Prevention/ Treatment Progression Toward Outcome/Goals Progressing /GI-Improve/Maintain Start: 02/20/18 22:40 Freq: QSHIFT Status: Active Target: Protocol: Activity Type Activity Date Activity User E-Sign Co-Sign Detail Recorded Client Recorded Date Recorded By Document 02/23/18 02:13 [id number] 02/23/18 02:14 [id number] 02/23/18 02:13 PMRU Outcome: Genitourinary/ Gastrointestinal Genitourinary- Outcome/Goals Maintain/ Achieve Urinary Continence Remain Free of Hospital- Acquired UTI Gastrointestinal-Outcome/Goals Maintain/ Achieve Bowel Regularity in Accordance with Pt's Baseline Prevent Constipation Laxatives as Ordered Bowel Program Progression Toward Outcome/Goals - Progressing Progression Toward Outcome/Goals - GI Progressing Outcome/Goals Met Comment pt used urinal Medication Administration Start: 02/20/18 22:40 Freq: QSHIFT Status: Active Target: Protocol: Activity Type Activity Date Activity User E-Sign Co-Sign Detail Recorded Client Recorded Date Recorded By Document 02/23/18 02:13 [id number] 02/23/18 02:14 [id number] 02/23/18 02:13 PMRU Outcome: Medication Administration Assess Patient Knowledge/Teach Med No: to be Education for all Meds completed on days Progression Towards Outcome/Goals Progressing Is Patient Going Home on Lovenox? Yes If Patient is Going Home on Lovenox, Who partner Will Administer Pain/Comfort- Improve/Maintain Start: 02/20/18 22:40 Freq: QSHIFT Status: Active Target: Protocol: Activity Type Activity Date Activity User E-Sign Co-Sign Detail Recorded Client Recorded Date Recorded By Document 02/23/18 02:13 [id number] [id number] 02/23/18 02:14 [id number] 02/23/18 02:13 PMRU Outcome: Pain/Comfort Outcome/Goals Demonstrates Knowledge and Use of Available Comfort Measures Achieves Acceptable Comfort/Pain Level as Determined by Patient/Condit Maintain Comfort Level Allowing Patient to Fully Participate in Rehab Progression Toward Outcome/Goals Progressing Outcome/Goals Met Comment pt declined medication at this time Respiratory - Improve/Maintain Start: 02/20/18 22:40 Freq: QSHIFT Status: Active Target: Protocol: Activity Type Activity Date Activity User E-Sign Co-Sign Detail Recorded Client Recorded Date Recorded By Document 02/23/18 02:13 [id number] 02/23/18 02:14 [id number] 02/23/18 02:13 PMRU Outcome: Respiratory Does Patient Have a Trach No Outcome/Goals Maintain/ Improve O2 Sat per MD Order Maintain/ Improve Baseline Respiratory Status Progression Toward Outcome/Goals Progressing Medicine Note: Length of Stay: 2 weeks Anticipated Discharge Destination: Home Tentative Discharge Date: 03/09/18 Discharged to: home
[2018-02-23] MEDS: Metoclopramide TAB* 10 MG PO SCH (16:35)
--- NOTE | 2018-02-23 17:37 | PN ---
Progress Note Date of Service: 02/23/18 Note: PATRICIO BONDS was visited. Therapy notes read and reviewed. He was discussed in interdisciplinary plan of care rounds. He seems to be moving slightly better. Will ask ortho if he will go home with knee immobilizers or braces. Tolerating full liquid diet. Eating small portions. Small BM this am Current Medications: Active Medications Generic Name Dose Route Start Last Admin Trade Name Freq PRN Reason Stop Dose Admin Acetaminophen 650 mg 02/20/18 15:45 02/23/18 17:33 Tylenol Tab* PO 650 mg Q6H PRN Administration FEVER/PAIN Atenolol 25 mg 02/21/18 09:00 02/23/18 09:02 Tenormin Tab* PO 25 mg DAILY JULIAN Administration Docusate Sodium 100 mg 02/20/18 21:00 02/23/18 09:02 Colace Cap* PO 100 mg BID JULIAN Administration Enoxaparin Sodium 40 mg 02/21/18 09:00 02/23/18 09:03 Lovenox(*) SUBCUT 40 mg Q24H JULIAN Administration Famotidine 20 mg 02/23/18 00:28 Pepcid Tab* PO Q12H PRN HEARTBURN Lactulose 30 ml 02/21/18 19:50 Lactulose* PO Q6H PRN CONSTIPATION Magnesium Hydroxide 30 ml 02/21/18 19:49 Milk Of Magnesia Liq* PO Q6H PRN CONSTIPATION Methocarbamol 750 mg 02/20/18 15:55 02/23/18 17:34 Robaxin Tab* PO 750 mg TID PRN Administration SPASMS Metoclopramide HCl 5 mg 02/23/18 16:30 02/23/18 16:35 Reglan Tab* PO 5 mg AC JULIAN Administration Omeprazole 20 mg 02/21/18 06:00 02/23/18 04:55 Prilosec Cap* PO 20 mg 0600 JULIAN Administration Oxycodone/Acetaminophen 1 tab 02/21/18 11:21 02/21/18 12:47 Percocet 5/325 Tab* PO 1 tab Q6H PRN Administration PAIN - MODERATE TO SEVERE Ropinirole HCl 1 mg 02/20/18 15:52 02/23/18 01:09 Requip Tab* PO 1 mg BEDTIME PRN Administration LEG CRAMPS Senna 2 tab 02/20/18 21:00 02/22/18 19:44 Senokot Tab* PO Not Given BEDTIME JULIAN Simethicone 80 mg 02/20/18 20:14 02/23/18 09:02 Mylicon Tab* PO 80 mg Q4H PRN Administration GAS Sodium Biphosphate/Sodium Phosphate 1 bottle 02/20/18 15:45 02/21/18 22:19 Fleet Enema* [place] 1 bottle DAILY PRN Administration CONSTIPATION Tamsulosin HCl 0.4 mg 02/21/18 09:00 02/23/18 09:02 Flomax Cap* PO 0.4 mg DAILY JULIAN Administration Tramadol HCl 50 mg 02/21/18 19:28 02/22/18 22:19 Ultram* PO 50 mg Q6H PRN Administration PAIN - MODERATE Vital Signs: Vital Signs Temp Pulse Resp BP Pulse Ox 98.1 F 65 16 110/75 100 02/23/18 16:10 02/23/18 16:10 02/23/18 17:34 02/23/18 16:10 02/23/18 16:25 Exam: LUNGS: Clear bilaterally HEART: reg rhythm ABDOMEN: soft, not as distended. +BS EXTREMITIES: Legs in immobilizers NEUROLOGIC: alert, able to move 4 extremities. No focal weakness. Knee immobilized Assessment/Plan: 1. Bilateral quadriceps tendon rupture: WBAT in immobilizers. PT/OT 2. Ileus: Full liquid diet, hold IV fluids. Change Reglan to PO. Will start soft diet in a day or two 3. Restless Legs: Requip 4. BPH: Flomax 5. DVT Prophylaxis: Lovenox 6. Analgesia: Ultram, tylenol 02/23/18 17:39
[2018-02-23] MEDS: Senna TAB PO SCH (20:13)
[2018-02-23] MEDS: traMADol TAB* 50 MG PO PRN (20:57)
[2018-02-24] MEDS: Simethicone TAB* 80 MG TAB.CHEW PO PRN (03:46)
[2018-02-24] MEDS: Omeprazole CAP* 20 MG PO SCH (06:27)
[2018-02-24] MEDS: Acetaminophen TAB* 325 MG PO PRN ×3 (06:27→19:41)
[2018-02-24] MEDS: Metoclopramide TAB* 10 MG PO SCH ×3 (08:56→16:35)
[2018-02-24] MEDS: Tamsulosin CAP* 0.4 MG PO SCH (08:58)
[2018-02-24] MEDS: Docusate CAP* 100 MG PO SCH ×2 (09:00→21:33)
[2018-02-24] MEDS: Atenolol TAB* 25 MG PO SCH (09:01)
[2018-02-24] MEDS: Enoxaparin(*) 40 MG/0.4 ML SYR SUBCUT SCH (09:01)
[2018-02-24] MEDS: Methocarbamol TAB* 500 MG PO PRN ×2 (13:31→19:41)
--- NOTE | 2018-02-24 19:08 | PN ---
Progress Note Date of Service: 02/24/18 Note: PATRICIO BONDS was visited. Therapy notes read and reviewed. Has tolerated full liquid diet. Had a BM today. Looks and feels better. Will advance his diet to soft Current Medications: Active Medications Generic Name Dose Route Start Last Admin Trade Name Freq PRN Reason Stop Dose Admin Acetaminophen 650 mg 02/20/18 15:45 02/24/18 13:37 Tylenol Tab* PO 650 mg Q6H PRN Administration FEVER/PAIN Atenolol 25 mg 02/21/18 09:00 02/24/18 09:01 Tenormin Tab* PO 25 mg DAILY JULIAN Administration Docusate Sodium 100 mg 02/20/18 21:00 02/24/18 09:00 Colace Cap* PO 100 mg BID JULIAN Administration Enoxaparin Sodium 40 mg 02/21/18 09:00 02/24/18 09:01 Lovenox(*) SUBCUT 40 mg Q24H JULIAN Administration Famotidine 20 mg 02/23/18 00:28 Pepcid Tab* PO Q12H PRN HEARTBURN Lactulose 30 ml 02/21/18 19:50 Lactulose* PO Q6H PRN CONSTIPATION Magnesium Hydroxide 30 ml 02/21/18 19:49 Milk Of Magnesia Liq* PO Q6H PRN CONSTIPATION Methocarbamol 750 mg 02/20/18 15:55 02/24/18 13:31 Robaxin Tab* PO 750 mg TID PRN Administration SPASMS Metoclopramide HCl 5 mg 02/23/18 16:30 02/24/18 16:35 Reglan Tab* PO 5 mg AC JULIAN Administration Omeprazole 20 mg 02/21/18 06:00 02/24/18 06:27 Prilosec Cap* PO 20 mg 0600 JULIAN Administration Oxycodone/Acetaminophen 1 tab 02/21/18 11:21 02/21/18 12:47 Percocet 5/325 Tab* PO 1 tab Q6H PRN Administration PAIN - MODERATE TO SEVERE Ropinirole HCl 1 mg 02/20/18 15:52 02/23/18 20:13 Requip Tab* PO 1 mg BEDTIME PRN Administration LEG CRAMPS Senna 2 tab 02/20/18 21:00 02/23/18 20:13 Senokot Tab* PO 2 tab BEDTIME JULIAN Administration Simethicone 80 mg 02/20/18 20:14 02/24/18 03:46 Mylicon Tab* PO 80 mg Q4H PRN Administration GAS Sodium Biphosphate/Sodium Phosphate 1 bottle 02/20/18 15:45 02/21/18 22:19 Fleet Enema* [place] 1 bottle DAILY PRN Administration CONSTIPATION Tamsulosin HCl 0.4 mg 02/21/18 09:00 02/24/18 08:58 Flomax Cap* PO 0.4 mg DAILY JULIAN Administration Tramadol HCl 50 mg 02/21/18 19:28 02/23/18 20:57 Ultram* PO 50 mg Q6H PRN Administration PAIN - MODERATE Vital Signs: Vital Signs Temp Pulse Resp BP Pulse Ox 97.6 F 67 16 113/74 97 02/24/18 16:05 02/24/18 16:05 02/24/18 16:33 02/24/18 16:05 02/24/18 16:05 Exam: LUNGS: Clear bilaterally HEART: reg rhythm ABDOMEN: soft, not as distended. +BS EXTREMITIES: Legs in immobilizers NEUROLOGIC: alert, able to move 4 extremities. No focal weakness. Knee immobilized Assessment/Plan: 1. Bilateral quadriceps tendon rupture: WBAT in immobilizers. PT/OT 2. Ileus: Full liquid diet, will advance to soft. Reglan 3. Restless Legs: Requip 4. BPH: Flomax 5. DVT Prophylaxis: Lovenox 6. Analgesia: Ultram, tylenol 02/24/18 19:09
[2018-02-24] MEDS: rOPINIRole TAB* 1 MG PO PRN (21:33)
[2018-02-24] MEDS: Senna TAB PO SCH (21:33)
[2018-02-24] MEDS: traMADol TAB* 50 MG PO PRN (21:34)
[2018-02-25] MEDS: Omeprazole CAP* 20 MG PO SCH (06:14)
[2018-02-25] MEDS: Acetaminophen TAB* 325 MG PO PRN ×3 (06:15→21:33)
[2018-02-25] MEDS: Methocarbamol TAB* 500 MG PO PRN ×3 (06:15→17:37)
[2018-02-25] MEDS: Metoclopramide TAB* 10 MG PO SCH ×3 (07:37→16:33)
[2018-02-25] MEDS: Tamsulosin CAP* 0.4 MG PO SCH (08:56)
[2018-02-25] MEDS: Enoxaparin(*) 40 MG/0.4 ML SYR SUBCUT SCH (08:56)
[2018-02-25] MEDS: Docusate CAP* 100 MG PO SCH ×2 (08:57→21:33)
[2018-02-25] MEDS: Atenolol TAB* 25 MG PO SCH (08:57)
--- NOTE | 2018-02-25 16:29 | PN ---
Progress Note Date of Service: 02/25/18 Note: PATRICIO BONDS was visited. Nursing notes read and reviewed. He has tolerated the soft diet. Will cut Reglan back if he continues to do well. He had a BM today Current Medications: Active Medications Generic Name Dose Route Start Last Admin Trade Name Freq PRN Reason Stop Dose Admin Acetaminophen 650 mg 02/20/18 15:45 02/25/18 13:09 Tylenol Tab* PO 650 mg Q6H PRN Administration FEVER/PAIN Atenolol 25 mg 02/21/18 09:00 02/25/18 08:57 Tenormin Tab* PO 25 mg DAILY JULIAN Administration Docusate Sodium 100 mg 02/20/18 21:00 02/25/18 08:57 Colace Cap* PO 100 mg BID JULIAN Administration Enoxaparin Sodium 40 mg 02/21/18 09:00 02/25/18 08:56 Lovenox(*) SUBCUT 40 mg Q24H JULIAN Administration Famotidine 20 mg 02/23/18 00:28 02/24/18 21:33 Pepcid Tab* PO 20 mg Q12H PRN Administration HEARTBURN Lactulose 30 ml 02/21/18 19:50 Lactulose* PO Q6H PRN CONSTIPATION Magnesium Hydroxide 30 ml 02/21/18 19:49 Milk Of Magnesia Liq* PO Q6H PRN CONSTIPATION Methocarbamol 750 mg 02/20/18 15:55 02/25/18 09:55 Robaxin Tab* PO 750 mg TID PRN Administration SPASMS Metoclopramide HCl 5 mg 02/23/18 16:30 02/25/18 11:20 Reglan Tab* PO 5 mg AC JULIAN Administration Omeprazole 20 mg 02/21/18 06:00 02/25/18 06:14 Prilosec Cap* PO 20 mg 0600 JULIAN Administration Oxycodone/Acetaminophen 1 tab 02/21/18 11:21 02/21/18 12:47 Percocet 5/325 Tab* PO 1 tab Q6H PRN Administration PAIN - MODERATE TO SEVERE Ropinirole HCl 1 mg 02/20/18 15:52 02/24/18 21:33 Requip Tab* PO 1 mg BEDTIME PRN Administration LEG CRAMPS Senna 2 tab 02/20/18 21:00 02/24/18 21:33 Senokot Tab* PO 2 tab BEDTIME JULIAN Administration Simethicone 80 mg 02/20/18 20:14 02/24/18 03:46 Mylicon Tab* PO 80 mg Q4H PRN Administration GAS Sodium Biphosphate/Sodium Phosphate 1 bottle 02/20/18 15:45 02/21/18 22:19 Fleet Enema* [place] 1 bottle DAILY PRN Administration CONSTIPATION Tamsulosin HCl 0.4 mg 02/21/18 09:00 02/25/18 08:56 Flomax Cap* PO 0.4 mg DAILY JULIAN Administration Tramadol HCl 50 mg 02/21/18 19:28 02/24/18 21:34 Ultram* PO 50 mg Q6H PRN Administration PAIN - MODERATE Vital Signs: Vital Signs Temp Pulse Resp BP Pulse Ox 97.6 F 64 18 108/65 100 02/25/18 15:09 02/25/18 15:09 02/25/18 15:09 02/25/18 15:09 02/25/18 15:09 Exam: LUNGS: Clear bilaterally HEART: reg rhythm ABDOMEN: soft. Bowel sounds now normal EXTREMITIES: Legs in immobilizers NEUROLOGIC: alert, able to move 4 extremities. No focal weakness. Knee immobilized Assessment/Plan: 1. Bilateral quadriceps tendon rupture: WBAT in immobilizers. PT/OT 2. Ileus: Soft diet. Reglan 3. Restless Legs: Requip 4. BPH: Flomax 5. DVT Prophylaxis: Lovenox 6. Analgesia: Ultram, tylenol 02/25/18 16:30
[2018-02-25] MEDS: traMADol TAB* 50 MG PO PRN (18:39)
[2018-02-25] MEDS: rOPINIRole TAB* 1 MG PO PRN (18:57)
[2018-02-25] MEDS: Senna TAB PO SCH (21:32)
[2018-02-26] MEDS: traMADol TAB* 50 MG PO PRN ×3 (03:17→15:21)
[2018-02-26] MEDS: Omeprazole CAP* 20 MG PO SCH (05:42)
[2018-02-26] MEDS: Metoclopramide TAB* 10 MG PO SCH ×3 (08:19→16:57)
[2018-02-26] MEDS: Docusate CAP* 100 MG PO SCH ×2 (09:29→21:53)
[2018-02-26] MEDS: Tamsulosin CAP* 0.4 MG PO SCH (09:29)
[2018-02-26] MEDS: Atenolol TAB* 25 MG PO SCH (09:30)
[2018-02-26] MEDS: Enoxaparin(*) 40 MG/0.4 ML SYR SUBCUT SCH (09:31)
[2018-02-26] MEDS: Acetaminophen TAB* 325 MG PO PRN ×2 (11:25→19:49)
[2018-02-26] MEDS: Methocarbamol TAB* 500 MG PO PRN ×2 (15:22→21:56)
--- NOTE | 2018-02-26 19:12 | PN ---
Progress Note Date of Service: 02/26/18 Note: PATRICIO BONDS was visited. Therapy notes read and reviewed. Feels much better. Eating solid foods but no BM yet today. Looks a world better. Current Medications: Active Medications Generic Name Dose Route Start Last Admin Trade Name Freq PRN Reason Stop Dose Admin Acetaminophen 650 mg 02/20/18 15:45 02/26/18 11:25 Tylenol Tab* PO 650 mg Q6H PRN Administration FEVER/PAIN Atenolol 25 mg 02/21/18 09:00 02/26/18 09:30 Tenormin Tab* PO 25 mg DAILY JULIAN Administration Docusate Sodium 100 mg 02/20/18 21:00 02/26/18 09:29 Colace Cap* PO 100 mg BID JULIAN Administration Enoxaparin Sodium 40 mg 02/21/18 09:00 02/26/18 09:31 Lovenox(*) SUBCUT 40 mg Q24H JULIAN Administration Famotidine 20 mg 02/23/18 00:28 02/24/18 21:33 Pepcid Tab* PO 20 mg Q12H PRN Administration HEARTBURN Lactulose 30 ml 02/21/18 19:50 Lactulose* PO Q6H PRN CONSTIPATION Magnesium Hydroxide 30 ml 02/21/18 19:49 Milk Of Magnesia Liq* PO Q6H PRN CONSTIPATION Methocarbamol 750 mg 02/20/18 15:55 02/26/18 15:22 Robaxin Tab* PO 750 mg TID PRN Administration SPASMS Metoclopramide HCl 5 mg 02/23/18 16:30 02/26/18 16:57 Reglan Tab* PO 5 mg AC JULIAN Administration Omeprazole 20 mg 02/21/18 06:00 02/26/18 05:42 Prilosec Cap* PO 20 mg 0600 JULIAN Administration Oxycodone/Acetaminophen 1 tab 02/21/18 11:21 02/21/18 12:47 Percocet 5/325 Tab* PO 1 tab Q6H PRN Administration PAIN - MODERATE TO SEVERE Ropinirole HCl 1 mg 02/20/18 15:52 02/25/18 18:57 Requip Tab* PO 1 mg BEDTIME PRN Administration LEG CRAMPS Senna 2 tab 02/20/18 21:00 02/25/18 21:32 Senokot Tab* PO 2 tab BEDTIME JULIAN Administration Simethicone 80 mg 02/20/18 20:14 02/24/18 03:46 Mylicon Tab* PO 80 mg Q4H PRN Administration GAS Sodium Biphosphate/Sodium Phosphate 1 bottle 02/20/18 15:45 02/21/18 22:19 Fleet Enema* [place] 1 bottle DAILY PRN Administration CONSTIPATION Tamsulosin HCl 0.4 mg 02/21/18 09:00 02/26/18 09:29 Flomax Cap* PO 0.4 mg DAILY JULIAN Administration Tramadol HCl 50 mg 02/21/18 19:28 02/26/18 15:21 Ultram* PO 50 mg Q6H PRN Administration PAIN - MODERATE Vital Signs: Vital Signs Temp Pulse Resp BP Pulse Ox 98.1 F 63 20 112/69 100 02/26/18 15:42 02/26/18 15:42 02/26/18 17:44 02/26/18 15:42 02/26/18 15:42 Exam: LUNGS: Clear bilaterally HEART: reg rhythm ABDOMEN: soft. Bowel sounds now normal EXTREMITIES: Legs in immobilizers NEUROLOGIC: alert, able to move 4 extremities. No focal weakness. Knees immobilized Assessment/Plan: 1. Bilateral quadriceps tendon rupture: WBAT in immobilizers. PT/OT 2. Ileus: Soft diet. Reglan. Looks good otherwise 3. Restless Legs: Requip 4. BPH: Flomax 5. DVT Prophylaxis: Lovenox 6. Analgesia: Ultram, tylenol 02/26/18 19:12
[2018-02-26] MEDS: Senna TAB PO SCH (21:53)
[2018-02-27] MEDS: Simethicone TAB* 80 MG TAB.CHEW PO PRN (05:06)
[2018-02-27] MEDS: Omeprazole CAP* 20 MG PO SCH (05:06)
[2018-02-27] MEDS: Metoclopramide TAB* 10 MG PO SCH ×2 (07:40→14:39)
[2018-02-27] MEDS: Enoxaparin(*) 40 MG/0.4 ML SYR SUBCUT SCH (09:42)
[2018-02-27] MEDS: Atenolol TAB* 25 MG PO SCH (09:42)
[2018-02-27] MEDS: Docusate CAP* 100 MG PO SCH ×2 (09:42→21:11)
[2018-02-27] MEDS: Methocarbamol TAB* 500 MG PO PRN ×2 (09:43→21:09)
[2018-02-27] MEDS: Tamsulosin CAP* 0.4 MG PO SCH (09:43)
[2018-02-27] MEDS: Acetaminophen TAB* 325 MG PO PRN ×3 (09:43→23:04)
--- NOTE | 2018-02-27 12:28 | PMRUTEAM ---
PMRU: Team Meeting Current Status: Nursing: Current Status Skin Deviations [Bilateral Incision Knee] Skin Deviation Description [ cryo units in place Bilateral Knee] Physical Therapy: Current Status Bed Mobility Assistance Not Tested Transfer Moblility Assistance Supervision Transfer/Bed Mobility Rolling Walker Recommended Devices Ambulation Assistance Supervision Ambulation Assistive Devices Rolling Walker Number of Feet Patient 50' Ambulated Stairs Assistance Not Tested Curb Not Tested Manual Wheelchair Control/ Bilateral UE's Technique Wheelchair Propulsion Ability Standby Assistance Wheelchair Distance (ft) 150' Occupational Therapy: Current Status Upper Body Dressing Supervision Lower Body Dressing Min Assist Bathing Min Assist Toileting Min Assist Toilet Transfer Supervision,Contact Guard Assist Eating Independent Rec Therapy: Current Status Summary of Assessment and RT assessment complete and pt. is aware of RT Clinical Impression services. Pt. has been very engaged in social conversation but has not been feeling up to activities in the afternoons. Con't to provide leisure visits. Treatment Goals Pt. will engage in leisure activities while on the unit. Treatment Plan Provide RT services and encourage involvement. Provide emotional support as needed. 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 Pt reports fair appetite - pt is on a soft diet d/t post-op ileus, and states that while he has not had a BM today, his bowel pattern is improving, and he feels less bloated/gassy. Pt is also concerned about eating too much/becoming too bloated again, so is limiting his intake somewhat (states he ate half a ham sandwich at [facility] today, eating all the ham but leaving half the bread). Pt denies wt loss; states that current listed wt is higher than he has ever weighed (? r/ t fluid retention ata-operatively). Pt denies difficulty chewing/swallowing. No ew education needs currently identified. Goals: Physical Therapy: Initial Goals Bed Mobility Assistance Independent Transfer Mobility Assistance Independent Transfer/Bed Mobility Rolling Walker Recommended Devices Ambulation Independent Ambulation Recommended Devices Rolling Walker Ambulation Distance 50 Wheelchair Propulsion Ability Independent Wheelchair Distance (ft) 150 Stairs Assistance Independent Stair Recommended Devices Two Rails Number of Stairs 1 flight Physical Therapy: Updated Goals Transfer/Bed Mobility Rolling Walker Recommended Devices Occupational Therapy: Initial Goals Goals to be Completed in (Days 14 ) Upper Body Bathing Routine Independent Lower Body Bathing Routine Modified Independent with Upper Body Dressing Routine Independent Lower Body Dressing Routine Minimal Contact Assist Toilet Hygeine and Clothing Modified Independent with Management Routine Toilet Transfer Routine Modified Independent with Step-In Shower Transfer Supervision/Set Up Routine Functional Transfers for ADL Modified Independent with Grooming Routine Independent Feeding Routine Independent Nutrition: Goals Intervention Goals 1. Intake will improve as bowel function returns 2. Pt will establish regular bowel pattern without constipation or diarrhea Social Work: Goals Discharge Plan return home with home care svs and family support Potential for Family Training pt's is involved and family support Anticipated Discharge Home Destination Discharge With home care svs and family support Care Plan: Care Plan ADL's - Improve/Maintain Start: 02/21/18 14:47 Freq: DAILY Status: Active Target: Protocol: Activity Type Activity Date Activity User E-Sign Co-Sign Detail Recorded Client Recorded Date Recorded By Document 02/27/18 11:40 [id number] 02/27/18 11:40 [id number] 02/27/18 11:40 PMRU Outcome: ADL's/ADL Transfers Orders/Interventions Occupational Therapy Evaluation & Treatment Communication Tool in Patient Room Patient to receive OT 5x/wk for 60-120 Therex min/day Self Care Management Group Therapy UE/LE ADL's with Assist Yes: min A for LE ADLs ADL Transfers with Assist Yes: mod I Toileting: Transfers,Clothing Management Yes: mod I ,Hygeine w/Assist Light Kitchen/Laundry w/Assist No Progression Toward Outcome/Goals Progressing Outcome/Goals Met Pt still has no clothes to practice threading pants but is progressing with mobility and felt quite well emotionally after a shower. DVT Prophylaxis- Improve/Maintain Start: 02/20/18 22:40 Freq: QSHIFT Status: Active Target: Protocol: Activity Type Activity Date Activity User E-Sign Co-Sign Detail Recorded Client Recorded Date Recorded By Document 02/27/18 00:40 [id number] 02/27/18 00:40 [id number] 02/27/18 00:40 PMRU Outcome: DVT Prophylaxis Outcome/Goals Remains Free of DVT Free of complications from current DVT Demonstrates Knowledge of DVT Prevention/ Treatment Progression Toward Outcome/Goals Progressing /GI-Improve/Maintain Start: 02/20/18 22:40 Freq: QSHIFT Status: Active Target: Protocol: Activity Type Activity Date Activity User E-Sign Co-Sign Detail Recorded Client Recorded Date Recorded By Document 02/27/18 00:40 [id number] 02/27/18 00:40 [id number] 02/27/18 00:40 PMRU Outcome: Genitourinary/ Gastrointestinal Genitourinary- Outcome/Goals Maintain/ Achieve Urinary Continence Remain Free of Hospital- Acquired UTI Gastrointestinal-Outcome/Goals Maintain/ Achieve Bowel Regularity in Accordance with Pt's Baseline Prevent Constipation Laxatives as Ordered Bowel Program Progression Toward Outcome/Goals - Progressing Progression Toward Outcome/Goals - GI Progressing Outcome/Goals Met Comment pt very concerned about having a BM Medication Administration Start: 02/20/18 22:40 Freq: QSHIFT Status: Active Target: Protocol: Activity Type Activity Date Activity User E-Sign Co-Sign Detail Recorded Client Recorded Date Recorded By Document 02/27/18 00:40 [id number] 02/27/18 00:40 [id number] 02/27/18 00:40 PMRU Outcome: Medication Administration Assess Patient Knowledge/Teach Med Yes Education for all Meds Outcome/Goals Patient Independent with Medication Administration at Home Demonstrates Understanding Progression Towards Outcome/Goals Progressing Is Patient Going Home on Lovenox? No Pain/Comfort- Improve/Maintain Start: 02/20/18 22:40 Freq: QSHIFT Status: Active Target: Protocol: Activity Type Activity Date Activity User E-Sign Co-Sign Detail Recorded Client Recorded Date Recorded By Document 02/27/18 00:40 [id number] [email or web address] 02/27/18 00:40 [id number] 02/27/18 00:40 PMRU Outcome: Pain/Comfort Outcome/Goals Demonstrates Knowledge and Use of Available Comfort Measures Achieves Acceptable Comfort/Pain Level as Determined by Patient/Condit Maintain Comfort Level Allowing Patient to Fully Participate in Rehab Progression Toward Outcome/Goals Progressing Outcome/Goals Met Comment pt declined pain medication Respiratory - Improve/Maintain Start: 02/20/18 22:40 Freq: QSHIFT Status: Active Target: Protocol: Activity Type Activity Date Activity User E-Sign Co-Sign Detail Recorded Client Recorded Date Recorded By Document 02/27/18 00:40 [id number] 02/27/18 00:40 [id number] 02/27/18 00:40 PMRU Outcome: Respiratory Does Patient Have a Trach No Outcome/Goals Maintain/ Improve O2 Sat per MD Order Maintain/ Improve Baseline Respiratory Status Maintain/ Improve Activity Tolerance Progression Toward Outcome/Goals Progressing Medicine Note: Length of Stay: 10 days Anticipated Discharge Destination: Home Tentative Discharge Date: 03/09/18 Discharged to: Home
[2018-02-27] MEDS: Metoclopramide LIQ* 10 MG/10 ML ORAL.SOLN PO SCH (17:00)
--- NOTE | 2018-02-27 18:12 | PN ---
Progress Note Date of Service: 02/27/18 Note: PATRICIO BONDS was visited. Therapy notes read and reviewed. He is making gains with therapies. His diet has advanced and have begun to cut back on Reglan. Had BM today Current Medications: Active Medications Generic Name Dose Route Start Last Admin Trade Name Freq PRN Reason Stop Dose Admin Acetaminophen 650 mg 02/20/18 15:45 02/27/18 17:01 Tylenol Tab* PO 650 mg Q6H PRN Administration FEVER/PAIN Atenolol 25 mg 02/21/18 09:00 02/27/18 09:42 Tenormin Tab* PO 25 mg DAILY JULIAN Administration Docusate Sodium 100 mg 02/20/18 21:00 02/27/18 09:42 Colace Cap* PO 100 mg BID JULIAN Administration Enoxaparin Sodium 40 mg 02/21/18 09:00 02/27/18 09:42 Lovenox(*) SUBCUT 40 mg Q24H JULIAN Administration Famotidine 20 mg 02/23/18 00:28 02/24/18 21:33 Pepcid Tab* PO 20 mg Q12H PRN Administration HEARTBURN Lactulose 30 ml 02/21/18 19:50 Lactulose* PO Q6H PRN CONSTIPATION Magnesium Hydroxide 30 ml 02/21/18 19:49 02/27/18 09:49 Milk Of Magnesia Liq* PO 30 ml Q6H PRN Administration CONSTIPATION Methocarbamol 750 mg 02/20/18 15:55 02/27/18 09:43 Robaxin Tab* PO 750 mg TID PRN Administration SPASMS Metoclopramide HCl 2.5 mg 02/27/18 16:30 02/27/18 17:00 Reglan Liq* PO 2.5 mg AC JULIAN Administration Omeprazole 20 mg 02/21/18 06:00 02/27/18 05:06 Prilosec Cap* PO 20 mg 0600 JULIAN Administration Oxycodone/Acetaminophen 1 tab 02/21/18 11:21 02/21/18 12:47 Percocet 5/325 Tab* PO 1 tab Q6H PRN Administration PAIN - MODERATE TO SEVERE Ropinirole HCl 1 mg 02/20/18 15:52 02/25/18 18:57 Requip Tab* PO 1 mg BEDTIME PRN Administration LEG CRAMPS Senna 2 tab 02/20/18 21:00 11/19/18 21:53 Senokot Tab* PO 2 tab BEDTIME JULIAN Administration Simethicone 80 mg 02/20/18 20:14 02/27/18 05:06 Mylicon Tab* PO 80 mg Q4H PRN Administration GAS Sodium Biphosphate/Sodium Phosphate 1 bottle 02/20/18 15:45 02/21/18 22:19 Fleet Enema* [place] 1 bottle DAILY PRN Administration CONSTIPATION Tamsulosin HCl 0.4 mg 02/21/18 09:00 02/27/18 09:43 Flomax Cap* PO 0.4 mg DAILY JULIAN Administration Tramadol HCl 50 mg 02/21/18 19:28 02/26/18 15:21 Ultram* PO 50 mg Q6H PRN Administration PAIN - MODERATE Vital Signs: Vital Signs Temp Pulse Resp BP Pulse Ox 97.8 F 76 21 133/76 98 02/27/18 17:00 02/27/18 17:00 02/27/18 17:00 02/27/18 17:00 02/27/18 17:00 Exam: LUNGS: Clear bilaterally HEART: reg rhythm ABDOMEN: soft. Bowel sounds now normal EXTREMITIES: Legs in immobilizers NEUROLOGIC: alert, able to move 4 extremities. No focal weakness. Knees immobilized Assessment/Plan: 1. Bilateral quadriceps tendon rupture: WBAT in immobilizers. PT/OT 2. Ileus: Soft diet. Reglan. Looks good otherwise. Had BM today 3. Restless Legs: Requip 4. BPH: Flomax 5. DVT Prophylaxis: Lovenox 6. Analgesia: Ultram, tylenol 02/27/18 18:12
[2018-02-27] MEDS: Senna TAB PO SCH (21:11)
[2018-02-27] MEDS: rOPINIRole TAB* 1 MG PO PRN (22:36)
[2018-02-28] MEDS: Omeprazole CAP* 20 MG PO SCH (05:18)
[2018-02-28 07:02] LABS: ABS Basophils 0.1 10^3/ul (0-0.2); ABS Eosinophils 0.2 10^3/ul (0-0.6); ABS Lymphocytes 1.4 10^3/ul (1.0-4.8); ABS Neutrophils 5.1 10^3/ul (1.5-7.7); ABS Nucleated RBC 0 10^3/ul; Eosinophil % 3.2 % (0-6); Hematocrit 41 % (42-52); Hemoglobin 13.9 g/dl (14.0-18.0); Lymphocyte % 17.7 % (25-47); Mean Corpuscular HGB Conc 34 g/dl (31-36); Mean Corpuscular Hemoglobin 31 pg (27-31); Mean Corpuscular Volume 89 fL (80-94); Mean Platelet Volume 8.4 fL (7.4-10.4); Nucleated Red Blood Cells % 0.1; Platelet Count 256 10^3/ul (150-450); Red Blood Count 4.56 10^6/ul (4.00-5.40); Red Cell Distribution Width 13 % (10.5-15); White Blood Count 7.7 10^3/ul (3.5-10.8)
[2018-02-28 07:59] LABS: EGFR Non-African American 101.5 (>60)
[2018-02-28] MEDS: Docusate CAP* 100 MG PO SCH ×2 (08:33→19:40)
[2018-02-28] MEDS: Enoxaparin(*) 40 MG/0.4 ML SYR SUBCUT SCH (08:33)
[2018-02-28] MEDS: Metoclopramide LIQ* 10 MG/10 ML ORAL.SOLN PO SCH ×3 (08:33→17:17)
[2018-02-28] MEDS: Atenolol TAB* 25 MG PO SCH (08:33)
[2018-02-28] MEDS: Tamsulosin CAP* 0.4 MG PO SCH (08:33)
[2018-02-28] MEDS: Methocarbamol TAB* 500 MG PO PRN ×3 (08:34→19:38)
[2018-02-28] MEDS: Acetaminophen TAB* 325 MG PO PRN ×3 (08:34→20:55)
--- NOTE | 2018-02-28 13:13 | PN ---
Progress Note Date of Service: 02/28/18 Note: PATRICIO BONDS was visited. Nursing and therapy notes read and reviewed. No chest pain, shortness of breath or abdominal pain. No new concerns. Current Medications: Active Medications Generic Name Dose Route Start Last Admin Trade Name Freq PRN Reason Stop Dose Admin Acetaminophen 650 mg 02/20/18 15:45 02/28/18 08:34 Tylenol Tab* PO 650 mg Q6H PRN Administration FEVER/PAIN Atenolol 25 mg 02/21/18 09:00 02/28/18 08:33 Tenormin Tab* PO 25 mg DAILY JULIAN Administration Docusate Sodium 100 mg 02/20/18 21:00 02/28/18 08:33 Colace Cap* PO 100 mg BID JULIAN Administration Enoxaparin Sodium 40 mg 02/21/18 09:00 02/28/18 08:33 Lovenox(*) SUBCUT 40 mg Q24H JULIAN Administration Famotidine 20 mg 02/23/18 00:28 02/24/18 21:33 Pepcid Tab* PO 20 mg Q12H PRN Administration HEARTBURN Lactulose 30 ml 02/21/18 19:50 Lactulose* PO Q6H PRN CONSTIPATION Magnesium Hydroxide 30 ml 02/21/18 19:49 02/27/18 09:49 Milk Of Magnesia Liq* PO 30 ml Q6H PRN Administration CONSTIPATION Methocarbamol 750 mg 02/20/18 15:55 02/28/18 08:34 Robaxin Tab* PO 750 mg TID PRN Administration SPASMS Metoclopramide HCl 2.5 mg 02/27/18 16:30 02/28/18 12:33 Reglan Liq* PO 2.5 mg AC JULIAN Administration Omeprazole 20 mg 02/21/18 06:00 02/28/18 05:18 Prilosec Cap* PO 20 mg 0600 JULIAN Administration Oxycodone/Acetaminophen 1 tab 02/21/18 11:21 02/21/18 12:47 Percocet 5/325 Tab* PO 1 tab Q6H PRN Administration PAIN - MODERATE TO SEVERE Ropinirole HCl 1 mg 02/20/18 15:52 02/27/18 22:36 Requip Tab* PO 1 mg BEDTIME PRN Administration LEG CRAMPS Senna 2 tab 02/20/18 21:00 02/27/18 21:11 Senokot Tab* PO Not Given BEDTIME JULIAN Simethicone 80 mg 02/20/18 20:14 02/27/18 05:06 Mylicon Tab* PO 80 mg Q4H PRN Administration GAS Sodium Biphosphate/Sodium Phosphate 1 bottle 02/20/18 15:45 02/21/18 22:19 Fleet Enema* [place] 1 bottle DAILY PRN Administration CONSTIPATION Tamsulosin HCl 0.4 mg 02/21/18 09:00 02/28/18 08:33 Flomax Cap* PO 0.4 mg DAILY JULIAN Administration Tramadol HCl 50 mg 02/21/18 19:28 02/26/18 15:21 Ultram* PO 50 mg Q6H PRN Administration PAIN - MODERATE Vital Signs: Vital Signs Temp Pulse Resp BP Pulse Ox 97.3 F 64 16 117/71 97 02/28/18 05:16 02/28/18 05:16 02/28/18 10:30 02/28/18 05:16 02/28/18 05:16 Lab Results: Laboratory Results - last 24 hr 02/28/18 02/28/18 06:46 06:46 WBC 7.7 RBC 4.56 Hgb 13.9 L Hct 41 L MCV 89 MCH 31 MCHC 34 RDW 13 Plt Count 256 MPV 8.4 Neut % (Auto) 65.8 Lymph % (Auto) 17.7 L Bennett % (Auto) 12.4 H Eos % (Auto) 3.2 Baso % (Auto) 0.9 Absolute Neuts (auto) 5.1 Absolute Lymphs (auto) 1.4 Absolute Monos (auto) 1.0 H Absolute Eos (auto) 0.2 Absolute Basos (auto) 0.1 Absolute Nucleated RBC 0 Nucleated RBC % 0.1 Sodium 141 Potassium 4.5 Chloride 109 Carbon Dioxide 26 Anion Gap 6 BUN 14 Creatinine 0.78 Est GFR ( Amer) 122.9 Est GFR (Non-Af Amer) 101.5 BUN/Creatinine Ratio 17.9 Glucose 105 H Calcium 9.3 Total Bilirubin 0.80 AST 26 ALT 36 Alkaline Phosphatase 80 Total Protein 5.6 L Albumin 3.4 Globulin 2.2 Albumin/Globulin Ratio 1.5 Exam: GEN: No acute distress. Alert and appropriate. LUNGS: Clear to auscultation bilaterally HEART: regular rate and rhythm ABDOMEN: + bowel sounds, soft, non-tender, non-distended EXTREMITIES: Legs in immobilizers. No pedal edema. NEUROLOGIC: Able to move all 4 extremities with normal sensation. No focal weakness. Knees immobilized Assessment/Plan: 1. Bilateral quadriceps tendon rupture: WBAT in immobilizers. PT/OT 2. Ileus: Soft diet. Reglan. 3. Restless Legs: Requip 4. BPH: Flomax 5. DVT Prophylaxis: Lovenox 6. Analgesia: Ultram, tylenol 02/28/18 13:13
[2018-02-28] MEDS: Senna TAB PO SCH (19:40)
[2018-02-28] MEDS: rOPINIRole TAB* 1 MG PO PRN (21:00)
[2018-03-01] MEDS: Omeprazole CAP* 20 MG PO SCH (05:48)
--- NOTE | 2018-03-01 08:46 | PN ---
Progress Note Date of Service: 03/01/18 Note: PATRICIO BONDS was visited. Nursing and therapy notes read and reviewed. No chest pain, shortness of breath or abdominal pain. Difficulty sleeping at night and interested in trying melatonin. Current Medications: Active Medications Generic Name Dose Route Start Last Admin Trade Name Freq PRN Reason Stop Dose Admin Acetaminophen 650 mg 02/20/18 15:45 02/28/18 20:55 Tylenol Tab* PO 650 mg Q6H PRN Administration FEVER/PAIN Atenolol 25 mg 02/21/18 09:00 02/28/18 08:33 Tenormin Tab* PO 25 mg DAILY JULIAN Administration Docusate Sodium 100 mg 02/20/18 21:00 02/28/18 19:40 Colace Cap* PO 100 mg BID JULIAN Administration Enoxaparin Sodium 40 mg 02/21/18 09:00 02/28/18 08:33 Lovenox(*) SUBCUT 40 mg Q24H JULIAN Administration Famotidine 20 mg 02/23/18 00:28 02/24/18 21:33 Pepcid Tab* PO 20 mg Q12H PRN Administration HEARTBURN Lactulose 30 ml 02/21/18 19:50 Lactulose* PO Q6H PRN CONSTIPATION Magnesium Hydroxide 30 ml 02/21/18 19:49 02/27/18 09:49 Milk Of Magnesia Liq* PO 30 ml Q6H PRN Administration CONSTIPATION Methocarbamol 750 mg 02/20/18 15:55 02/28/18 19:38 Robaxin Tab* PO 750 mg TID PRN Administration SPASMS Metoclopramide HCl 2.5 mg 02/27/18 16:30 02/28/18 17:17 Reglan Liq* PO 2.5 mg AC JULIAN Administration Omeprazole 20 mg 02/21/18 06:00 03/01/18 05:48 Prilosec Cap* PO 20 mg 0600 JULIAN Administration Oxycodone/Acetaminophen 1 tab 02/21/18 11:21 02/21/18 12:47 Percocet 5/325 Tab* PO 1 tab Q6H PRN Administration PAIN - MODERATE TO SEVERE Ropinirole HCl 1 mg 02/20/18 15:52 02/28/18 21:00 Requip Tab* PO 1 mg BEDTIME PRN Administration LEG CRAMPS Senna 2 tab 02/20/18 21:00 11/21/18 19:40 Senokot Tab* PO Not Given BEDTIME JULIAN Simethicone 80 mg 02/20/18 20:14 02/27/18 05:06 Mylicon Tab* PO 80 mg Q4H PRN Administration GAS Sodium Biphosphate/Sodium Phosphate 1 bottle 02/20/18 15:45 02/21/18 22:19 Fleet Enema* [place] 1 bottle DAILY PRN Administration CONSTIPATION Tamsulosin HCl 0.4 mg 02/21/18 09:00 02/28/18 08:33 Flomax Cap* PO 0.4 mg DAILY JULIAN Administration Tramadol HCl 50 mg 02/21/18 19:28 02/26/18 15:21 Ultram* PO 50 mg Q6H PRN Administration PAIN - MODERATE Vital Signs: Vital Signs Temp Pulse Resp BP Pulse Ox 98.7 F 67 18 122/72 95 03/01/18 05:49 03/01/18 05:49 03/01/18 05:49 03/01/18 05:49 03/01/18 05:49 Exam: GEN: No acute distress. Alert and appropriate. LUNGS: Clear to auscultation bilaterally HEART: regular rate and rhythm ABDOMEN: + bowel sounds, soft, non-tender, non-distended EXTREMITIES: Legs in immobilizers. No pedal edema. NEUROLOGIC: Able to move all 4 extremities with normal sensation. No focal weakness. Knees immobilized Assessment/Plan: 1. Bilateral quadriceps tendon rupture: WBAT in immobilizers. PT/OT 2. Ileus: Soft diet. Reglan. 3. Restless Legs: Requip 4. BPH: Flomax 5. DVT Prophylaxis: Lovenox 6. Analgesia: Ultram, tylenol 7. Insomnia: melatonin 03/01/18 08:46
[2018-03-01] MEDS: Tamsulosin CAP* 0.4 MG PO SCH (09:04)
[2018-03-01] MEDS: Docusate CAP* 100 MG PO SCH ×2 (09:04→20:57)
[2018-03-01] MEDS: Atenolol TAB* 25 MG PO SCH (09:04)
[2018-03-01] MEDS: Metoclopramide LIQ* 10 MG/10 ML ORAL.SOLN PO SCH ×3 (09:05→16:45)
[2018-03-01] MEDS: Acetaminophen TAB* 325 MG PO PRN ×3 (09:07→22:35)
[2018-03-01] MEDS: Enoxaparin(*) 40 MG/0.4 ML SYR SUBCUT SCH (09:08)
[2018-03-01] MEDS: Methocarbamol TAB* 500 MG PO PRN (15:47)
[2018-03-01] MEDS: rOPINIRole TAB* 1 MG PO PRN (20:57)
[2018-03-01] MEDS: Senna TAB PO SCH (20:57)
[2018-03-01] MEDS: Melatonin 3 MG TAB PO SCH (20:57)
[2018-03-02] MEDS: Omeprazole CAP* 20 MG PO SCH (05:39)
[2018-03-02] MEDS: Acetaminophen TAB* 325 MG PO PRN ×3 (07:36→21:14)
[2018-03-02] MEDS: Metoclopramide LIQ* 10 MG/10 ML ORAL.SOLN PO SCH ×3 (07:36→16:36)
[2018-03-02] MEDS: Atenolol TAB* 25 MG PO SCH (10:00)
[2018-03-02] MEDS: Enoxaparin(*) 40 MG/0.4 ML SYR SUBCUT SCH (10:00)
[2018-03-02] MEDS: Docusate CAP* 100 MG PO SCH ×2 (10:00→21:14)
[2018-03-02] MEDS: Tamsulosin CAP* 0.4 MG PO SCH (10:00)
--- NOTE | 2018-03-02 10:58 | PN ---
Progress Note Date of Service: 03/02/18 Note: PATRICIO BONDS was visited. Nursing notes read and reviewed. No chest pain, shortness of breath or abdominal pain. Current Medications: Active Medications Generic Name Dose Route Start Last Admin Trade Name Freq PRN Reason Stop Dose Admin Acetaminophen 650 mg 02/20/18 15:45 03/02/18 07:36 Tylenol Tab* PO 650 mg Q6H PRN Administration FEVER/PAIN Atenolol 25 mg 02/21/18 09:00 03/02/18 10:00 Tenormin Tab* PO 25 mg DAILY JULIAN Administration Docusate Sodium 100 mg 02/20/18 21:00 03/02/18 10:00 Colace Cap* PO 100 mg BID JULIAN Administration Enoxaparin Sodium 40 mg 02/21/18 09:00 03/02/18 10:00 Lovenox(*) SUBCUT 40 mg Q24H JULIAN Administration Famotidine 20 mg 02/23/18 00:28 02/24/18 21:33 Pepcid Tab* PO 20 mg Q12H PRN Administration HEARTBURN Lactulose 30 ml 02/21/18 19:50 Lactulose* PO Q6H PRN CONSTIPATION Magnesium Hydroxide 30 ml 02/21/18 19:49 02/27/18 09:49 Milk Of Magnesia Liq* PO 30 ml Q6H PRN Administration CONSTIPATION Melatonin 3 mg 03/01/18 21:00 03/01/18 20:57 Melatonin PO 3 mg BEDTIME JULIAN Administration Protocol Methocarbamol 750 mg 02/20/18 15:55 03/01/18 15:47 Robaxin Tab* PO 750 mg TID PRN Administration SPASMS Metoclopramide HCl 2.5 mg 02/27/18 16:30 03/02/18 07:36 Reglan Liq* PO 2.5 mg AC JULIAN Administration Omeprazole 20 mg 02/21/18 06:00 03/02/18 05:39 Prilosec Cap* PO 20 mg 0600 JULIAN Administration Oxycodone/Acetaminophen 1 tab 02/21/18 11:21 02/21/18 12:47 Percocet 5/325 Tab* PO 1 tab Q6H PRN Administration PAIN - MODERATE TO SEVERE Ropinirole HCl 1 mg 02/20/18 15:52 03/01/18 20:57 Requip Tab* PO 1 mg BEDTIME PRN Administration LEG CRAMPS Senna 2 tab 02/20/18 21:00 03/01/18 20:57 Senokot Tab* PO 2 tab BEDTIME JULIAN Administration Simethicone 80 mg 02/20/18 20:14 02/27/18 05:06 Mylicon Tab* PO 80 mg Q4H PRN Administration GAS Sodium Biphosphate/Sodium Phosphate 1 bottle 02/20/18 15:45 02/21/18 22:19 Fleet Enema* [place] 1 bottle DAILY PRN Administration CONSTIPATION Tamsulosin HCl 0.4 mg 02/21/18 09:00 03/02/18 10:00 Flomax Cap* PO 0.4 mg DAILY JULIAN Administration Tramadol HCl 50 mg 02/21/18 19:28 02/26/18 15:21 Ultram* PO 50 mg Q6H PRN Administration PAIN - MODERATE Vital Signs: Vital Signs Temp Pulse Resp BP Pulse Ox 97.7 F 56 16 117/69 100 03/02/18 04:46 03/02/18 04:46 03/02/18 08:00 03/02/18 04:46 03/02/18 08:00 Exam: GEN: No acute distress. Alert and appropriate. LUNGS: Clear to auscultation bilaterally HEART: regular rate and rhythm ABDOMEN: + bowel sounds, soft, non-tender, non-distended EXTREMITIES: Legs in immobilizers. No pedal edema. NEUROLOGIC: Able to move all 4 extremities with normal sensation. No focal weakness. Knees immobilized Assessment/Plan: 1. Bilateral quadriceps tendon rupture: WBAT in immobilizers. PT/OT 2. Ileus: Soft diet. Reglan. 3. Restless Legs: Requip 4. BPH: Flomax 5. DVT Prophylaxis: Lovenox 6. Analgesia: Ultram, tylenol 7. Insomnia: melatonin 03/02/18 10:57
[2018-03-02] MEDS: Methocarbamol TAB* 500 MG PO PRN ×2 (14:18→21:15)
[2018-03-02] MEDS: Senna TAB PO SCH (21:14)
[2018-03-02] MEDS: Melatonin 3 MG TAB PO SCH (21:14)
[2018-03-02] MEDS: rOPINIRole TAB* 1 MG PO PRN (21:14)
[2018-03-03] MEDS: Omeprazole CAP* 20 MG PO SCH (05:48)
[2018-03-03] MEDS: Acetaminophen TAB* 325 MG PO PRN ×3 (08:47→22:21)
[2018-03-03] MEDS: Metoclopramide LIQ* 10 MG/10 ML ORAL.SOLN PO SCH ×3 (08:47→16:22)
--- NOTE | 2018-03-03 09:13 | PN ---
Progress Note Date of Service: 03/03/18 Note: PATRICIO BONDS was visited. Nursing and therapy notes read and reviewed. No chest pain, shortness of breath or abdominal pain. His is nervous about d/ c home before he can bend his knees. Current Medications: Active Medications Generic Name Dose Route Start Last Admin Trade Name Freq PRN Reason Stop Dose Admin Acetaminophen 650 mg 02/20/18 15:45 03/03/18 08:47 Tylenol Tab* PO 650 mg Q6H PRN Administration FEVER/PAIN Atenolol 25 mg 02/21/18 09:00 03/02/18 10:00 Tenormin Tab* PO 25 mg DAILY JULIAN Administration Docusate Sodium 100 mg 02/20/18 21:00 03/02/18 21:14 Colace Cap* PO 100 mg BID JULIAN Administration Enoxaparin Sodium 40 mg 02/21/18 09:00 03/02/18 10:00 Lovenox(*) SUBCUT 40 mg Q24H JULIAN Administration Famotidine 20 mg 02/23/18 00:28 02/24/18 21:33 Pepcid Tab* PO 20 mg Q12H PRN Administration HEARTBURN Lactulose 30 ml 02/21/18 19:50 Lactulose* PO Q6H PRN CONSTIPATION Magnesium Hydroxide 30 ml 02/21/18 19:49 02/27/18 09:49 Milk Of Magnesia Liq* PO 30 ml Q6H PRN Administration CONSTIPATION Melatonin 3 mg 03/01/18 21:00 03/02/18 21:14 Melatonin PO 3 mg BEDTIME JULIAN Administration Protocol Methocarbamol 750 mg 02/20/18 15:55 03/02/18 21:15 Robaxin Tab* PO 750 mg TID PRN Administration SPASMS Metoclopramide HCl 2.5 mg 02/27/18 16:30 03/03/18 08:47 Reglan Liq* PO 2.5 mg AC JULIAN Administration Omeprazole 20 mg 02/21/18 06:00 03/03/18 05:48 Prilosec Cap* PO 20 mg 0600 JULIAN Administration Oxycodone/Acetaminophen 1 tab 02/21/18 11:21 02/21/18 12:47 Percocet 5/325 Tab* PO 1 tab Q6H PRN Administration PAIN - MODERATE TO SEVERE Ropinirole HCl 1 mg 02/20/18 15:52 03/02/18 21:14 Requip Tab* PO 1 mg BEDTIME PRN Administration LEG CRAMPS Senna 2 tab 02/20/18 21:00 03/02/18 21:14 Senokot Tab* PO 2 tab BEDTIME JULIAN Administration Simethicone 80 mg 02/20/18 20:14 02/27/18 05:06 Mylicon Tab* PO 80 mg Q4H PRN Administration GAS Sodium Biphosphate/Sodium Phosphate 1 bottle 02/20/18 15:45 02/21/18 22:19 Fleet Enema* [place] 1 bottle DAILY PRN Administration CONSTIPATION Tamsulosin HCl 0.4 mg 02/21/18 09:00 03/02/18 10:00 Flomax Cap* PO 0.4 mg DAILY JULIAN Administration Tramadol HCl 50 mg 02/21/18 19:28 02/26/18 15:21 Ultram* PO 50 mg Q6H PRN Administration PAIN - MODERATE Vital Signs: Vital Signs Temp Pulse Resp BP Pulse Ox 97.6 F 65 20 124/81 100 03/03/18 05:45 03/03/18 05:45 03/03/18 05:45 03/03/18 05:45 03/03/18 05:45 Exam: GEN: No acute distress. Alert and appropriate. LUNGS: Clear to auscultation bilaterally HEART: regular rate and rhythm ABDOMEN: + bowel sounds, soft, non-tender, non-distended EXTREMITIES: Legs in immobilizers. No pedal edema. NEUROLOGIC: Able to move all 4 extremities with normal sensation. No focal weakness. Knees immobilized Assessment/Plan: 1. Bilateral quadriceps tendon rupture: WBAT in immobilizers. PT/OT. PT will call to discuss his abilities. f/u with Dr. Veronica 2. Ileus: Soft diet. Reglan. 3. Restless Legs: Requip 4. BPH: Flomax 5. DVT Prophylaxis: Lovenox 6. Analgesia: Ultram, tylenol 7. Insomnia: melatonin 03/03/18 09:13
[2018-03-03] MEDS: Enoxaparin(*) 40 MG/0.4 ML SYR SUBCUT SCH (09:20)
[2018-03-03] MEDS: Atenolol TAB* 25 MG PO SCH (09:20)
[2018-03-03] MEDS: Tamsulosin CAP* 0.4 MG PO SCH (09:20)
[2018-03-03] MEDS: Docusate CAP* 100 MG PO SCH ×2 (09:20→21:02)
[2018-03-03] MEDS: Methocarbamol TAB* 500 MG PO PRN ×2 (16:27→21:06)
[2018-03-03] MEDS: rOPINIRole TAB* 1 MG PO PRN (21:02)
[2018-03-03] MEDS: Senna TAB PO SCH (21:03)
[2018-03-03] MEDS: Melatonin 3 MG TAB PO SCH (22:21)
[2018-03-04] MEDS: Omeprazole CAP* 20 MG PO SCH (05:55)
[2018-03-04] MEDS: Metoclopramide LIQ* 10 MG/10 ML ORAL.SOLN PO SCH ×3 (07:24→16:25)
[2018-03-04] MEDS: Docusate CAP* 100 MG PO SCH ×2 (08:14→20:56)
[2018-03-04] MEDS: Acetaminophen TAB* 325 MG PO PRN ×3 (08:14→22:44)
[2018-03-04] MEDS: Atenolol TAB* 25 MG PO SCH (08:14)
[2018-03-04] MEDS: Tamsulosin CAP* 0.4 MG PO SCH (08:14)
[2018-03-04] MEDS: Enoxaparin(*) 40 MG/0.4 ML SYR SUBCUT SCH (08:15)
--- NOTE | 2018-03-04 09:53 | PN ---
Progress Note Date of Service: 03/04/18 Note: PATRICIO BONDS was visited. Nursing and therapy notes read and reviewed. No chest pain, shortness of breath or abdominal pain. spoke to PT yesterday and is reassured per pt. Current Medications: Active Medications Generic Name Dose Route Start Last Admin Trade Name Freq PRN Reason Stop Dose Admin Acetaminophen 650 mg 02/20/18 15:45 03/04/18 08:14 Tylenol Tab* PO 650 mg Q6H PRN Administration FEVER/PAIN Atenolol 25 mg 02/21/18 09:00 03/04/18 08:14 Tenormin Tab* PO 25 mg DAILY JULIAN Administration Docusate Sodium 100 mg 02/20/18 21:00 03/04/18 08:14 Colace Cap* PO 100 mg BID JULIAN Administration Enoxaparin Sodium 40 mg 02/21/18 09:00 03/04/18 08:15 Lovenox(*) SUBCUT 40 mg Q24H JULIAN Administration Famotidine 20 mg 02/23/18 00:28 02/24/18 21:33 Pepcid Tab* PO 20 mg Q12H PRN Administration HEARTBURN Lactulose 30 ml 02/21/18 19:50 Lactulose* PO Q6H PRN CONSTIPATION Magnesium Hydroxide 30 ml 02/21/18 19:49 02/27/18 09:49 Milk Of Magnesia Liq* PO 30 ml Q6H PRN Administration CONSTIPATION Melatonin 3 mg 03/01/18 21:00 03/03/18 22:21 Melatonin PO 3 mg BEDTIME JULIAN Administration Protocol Methocarbamol 750 mg 02/20/18 15:55 03/03/18 21:06 Robaxin Tab* PO 750 mg TID PRN Administration SPASMS Metoclopramide HCl 2.5 mg 02/27/18 16:30 03/04/18 07:24 Reglan Liq* PO 2.5 mg AC JULIAN Administration Omeprazole 20 mg 02/21/18 06:00 03/04/18 05:55 Prilosec Cap* PO 20 mg 0600 JULIAN Administration Oxycodone/Acetaminophen 1 tab 02/21/18 11:21 02/21/18 12:47 Percocet 5/325 Tab* PO 1 tab Q6H PRN Administration PAIN - MODERATE TO SEVERE Ropinirole HCl 1 mg 02/20/18 15:52 03/03/18 21:02 Requip Tab* PO 1 mg BEDTIME PRN Administration LEG CRAMPS Senna 2 tab 02/20/18 21:00 03/03/18 21:03 Senokot Tab* PO 2 tab BEDTIME JULIAN Administration Simethicone 80 mg 02/20/18 20:14 02/27/18 05:06 Mylicon Tab* PO 80 mg Q4H PRN Administration GAS Sodium Biphosphate/Sodium Phosphate 1 bottle 02/20/18 15:45 02/21/18 22:19 Fleet Enema* [place] 1 bottle DAILY PRN Administration CONSTIPATION Tamsulosin HCl 0.4 mg 02/21/18 09:00 03/04/18 08:14 Flomax Cap* PO 0.4 mg DAILY JULIAN Administration Tramadol HCl 50 mg 02/21/18 19:28 02/26/18 15:21 Ultram* PO 50 mg Q6H PRN Administration PAIN - MODERATE Vital Signs: Vital Signs Temp Pulse Resp BP Pulse Ox 98.1 F 57 22 122/84 99 03/04/18 05:51 03/04/18 05:51 03/04/18 05:51 03/04/18 05:51 03/04/18 07:44 Exam: GEN: No acute distress. Alert and appropriate. LUNGS: Clear to auscultation bilaterally HEART: regular rate and rhythm ABDOMEN: + bowel sounds, soft, non-tender, non-distended EXTREMITIES: Legs in immobilizers. No pedal edema. NEUROLOGIC: Able to move all 4 extremities with normal sensation. No focal weakness. Knees immobilized Assessment/Plan: 1. Bilateral quadriceps tendon rupture: WBAT in immobilizers. PT/OT. f/u with Dr. Veronica 2. Ileus: Soft diet. Reglan. 3. Restless Legs: Requip 4. BPH: Flomax 5. DVT Prophylaxis: Lovenox 6. Analgesia: Ultram, tylenol 7. Insomnia: melatonin 03/04/18 09:53
[2018-03-04] MEDS: Melatonin 3 MG TAB PO SCH (20:56)
[2018-03-04] MEDS: rOPINIRole TAB* 1 MG PO PRN (20:56)
[2018-03-04] MEDS: Senna TAB PO SCH (20:56)
[2018-03-04] MEDS: Methocarbamol TAB* 500 MG PO PRN (20:57)
[2018-03-05] MEDS: Omeprazole CAP* 20 MG PO SCH (06:07)
[2018-03-05] MEDS: Metoclopramide LIQ* 10 MG/10 ML ORAL.SOLN PO SCH ×2 (07:33→11:30)
[2018-03-05] MEDS: Docusate CAP* 100 MG PO SCH ×2 (07:35→21:33)
[2018-03-05] MEDS: Atenolol TAB* 25 MG PO SCH (07:35)
[2018-03-05] MEDS: Acetaminophen TAB* 325 MG PO PRN ×3 (07:35→21:33)
[2018-03-05] MEDS: Tamsulosin CAP* 0.4 MG PO SCH (07:35)
[2018-03-05] MEDS: Methocarbamol TAB* 500 MG PO PRN ×2 (07:37→15:04)
[2018-03-05] MEDS: Enoxaparin(*) 40 MG/0.4 ML SYR SUBCUT SCH (07:38)
--- NOTE | 2018-03-05 18:14 | PN ---
Progress Note Date of Service: 03/05/18 Note: PATRICIO BONDS was visited. Therapy notes read and reviewed. Feeling well and moving better. He was able to have a BM today. He has been doing well and I will stop his Reglan Current Medications: Active Medications Generic Name Dose Route Start Last Admin Trade Name Freq PRN Reason Stop Dose Admin Acetaminophen 650 mg 02/20/18 15:45 03/05/18 13:28 Tylenol Tab* PO 650 mg Q6H PRN Administration FEVER/PAIN Atenolol 25 mg 02/21/18 09:00 03/05/18 07:35 Tenormin Tab* PO 25 mg DAILY JULIAN Administration Docusate Sodium 100 mg 02/20/18 21:00 03/05/18 07:35 Colace Cap* PO 100 mg BID JULIAN Administration Enoxaparin Sodium 40 mg 02/21/18 09:00 03/05/18 07:38 Lovenox(*) SUBCUT 40 mg Q24H JULIAN Administration Famotidine 20 mg 02/23/18 00:28 02/24/18 21:33 Pepcid Tab* PO 20 mg Q12H PRN Administration HEARTBURN Lactulose 30 ml 02/21/18 19:50 Lactulose* PO Q6H PRN CONSTIPATION Magnesium Hydroxide 30 ml 02/21/18 19:49 02/27/18 09:49 Milk Of Magnesia Liq* PO 30 ml Q6H PRN Administration CONSTIPATION Melatonin 3 mg 03/01/18 21:00 03/04/18 20:56 Melatonin PO 3 mg BEDTIME JULIAN Administration Protocol Methocarbamol 750 mg 02/20/18 15:55 03/05/18 15:04 Robaxin Tab* PO 750 mg TID PRN Administration SPASMS Omeprazole 20 mg 02/21/18 06:00 03/05/18 06:07 Prilosec Cap* PO 20 mg 0600 JULIAN Administration Ropinirole HCl 1 mg 02/20/18 15:52 03/04/18 20:56 Requip Tab* PO 1 mg BEDTIME PRN Administration LEG CRAMPS Senna 2 tab 02/20/18 21:00 03/04/18 20:56 Senokot Tab* PO 2 tab BEDTIME JULIAN Administration Simethicone 80 mg 02/20/18 20:14 02/27/18 05:06 Mylicon Tab* PO 80 mg Q4H PRN Administration GAS Sodium Biphosphate/Sodium Phosphate 1 bottle 02/20/18 15:45 02/21/18 22:19 Fleet Enema* [place] 1 bottle DAILY PRN Administration CONSTIPATION Tamsulosin HCl 0.4 mg 02/21/18 09:00 03/05/18 07:35 Flomax Cap* PO 0.4 mg DAILY JULIAN Administration Tramadol HCl 50 mg 02/21/18 19:28 02/26/18 15:21 Ultram* PO 50 mg Q6H PRN Administration PAIN - MODERATE Vital Signs: Vital Signs Temp Pulse Resp BP Pulse Ox 98.5 F 71 16 98/58 98 03/05/18 16:10 03/05/18 16:10 03/05/18 16:21 03/05/18 16:10 03/05/18 16:21 Exam: GEN: No acute distress. Alert and appropriate. LUNGS: Clear to auscultation bilaterally HEART: regular rate and rhythm ABDOMEN: + bowel sounds, soft, non-tender, non-distended EXTREMITIES: Legs in immobilizers. No pedal edema. NEUROLOGIC: Able to move all 4 extremities with normal sensation. No focal weakness. Knees immobilized Assessment/Plan: 1. Bilateral quadriceps tendon rupture: WBAT in immobilizers. PT/OT. f/u with Dr. Veronica 2. Ileus: Resolved. D/C Reglan. 3. Restless Legs: Requip 4. BPH: Flomax 5. DVT Prophylaxis: Lovenox 6. Analgesia: Ultram, tylenol 7. Insomnia: melatonin 03/05/18 18:15
[2018-03-05] MEDS: Melatonin 3 MG TAB PO SCH (21:33)
[2018-03-05] MEDS: Senna TAB PO SCH (21:33)
[2018-03-05] MEDS: rOPINIRole TAB* 1 MG PO PRN (21:34)
[2018-03-06] MEDS: Omeprazole CAP* 20 MG PO SCH (06:11)
[2018-03-06] MEDS: Atenolol TAB* 25 MG PO SCH (08:15)
[2018-03-06] MEDS: Tamsulosin CAP* 0.4 MG PO SCH (08:16)
[2018-03-06] MEDS: Docusate CAP* 100 MG PO SCH ×2 (08:16→20:21)
[2018-03-06] MEDS: Acetaminophen TAB* 325 MG PO PRN ×3 (08:16→22:02)
[2018-03-06] MEDS: Enoxaparin(*) 40 MG/0.4 ML SYR SUBCUT SCH (08:16)
[2018-03-06] MEDS: Methocarbamol TAB* 500 MG PO PRN ×3 (08:17→20:19)
--- NOTE | 2018-03-06 12:27 | PMRUTEAM ---
PMRU: Team Meeting Current Status: Nursing: Current Status Skin Deviations [Bilateral Incision Knee] Skin Deviation Description [ drsgs/immobilizers/cryounit bilat Bilateral Knee] Physical Therapy: Current Status Bed Mobility Assistance Supervision Transfer Moblility Assistance Independent,Supervision Transfer/Bed Mobility Rolling Walker Recommended Devices Ambulation Assistance Independent,Supervision Ambulation Assistive Devices Rolling Walker Number of Feet Patient 150 Ambulated Stairs Assistance Not Tested Curb Not Tested Manual Wheelchair Control/ Bilateral UE's Technique Wheelchair Propulsion Ability Independent Wheelchair Distance (ft) 150 Objective Comments able to navigate through narrow spaces, turn in small areas and line up near mat/chair for transfers in w/c Occupational Therapy: Current Status Upper Body Dressing Independent Lower Body Dressing Supervision Bathing Supervision Toileting Supervision Toilet Transfer Supervision Shower Transfer Supervision Eating Independent Rec Therapy: Current Status Summary of Assessment and RT assessment complete and pt. is aware of RT Clinical Impression services. Pt. has been very engaged in social conversation but has not been feeling up to activities in the afternoons. Con't to provide leisure visits. Treatment Goals Pt. will engage in leisure activities while on the unit. Treatment Plan Provide RT services and encourage involvement. Provide emotional support as needed. Social Work: Current Status Discharge Plan return home with home care svs and family support Potential for Family Training pt's has been unable to attend family training due to work committments Anticipated Discharge Home Destination Discharge With home care svs and family support Nutrition: Current Status Monitoring Pt eating adequately with 100% intake at meals now ; eating independently. Regular bowel pattern established with soft/formed BMs nearly every day or every other day. Labs unremarkable as of 02/28. No skin breakdown noted per nursing assessments. Pt meeting goals thus far; no nutrition intervention indicated at this time. Goals: Physical Therapy: Initial Goals Bed Mobility Assistance Independent Transfer Mobility Assistance Independent Transfer/Bed Mobility Rolling Walker Recommended Devices Ambulation Independent Ambulation Recommended Devices Rolling Walker Ambulation Distance 50 Wheelchair Propulsion Ability Independent Wheelchair Distance (ft) 150 Stairs Assistance Independent Stair Recommended Devices Two Rails Number of Stairs 1 flight Physical Therapy: Updated Goals Transfer/Bed Mobility Rolling Walker Recommended Devices Occupational Therapy: Initial Goals Goals to be Completed in (Days 14 ) Upper Body Bathing Routine Independent Lower Body Bathing Routine Modified Independent with Upper Body Dressing Routine Independent Lower Body Dressing Routine Minimal Contact Assist Toilet Hygeine and Clothing Modified Independent with Management Routine Toilet Transfer Routine Modified Independent with Step-In Shower Transfer Supervision/Set Up Routine Functional Transfers for ADL Modified Independent with Grooming Routine Independent Feeding Routine Independent Nutrition: Goals Intervention Goals 1. Intake will remain adequate to maintain stable wt 2. Pt will maintain regular bowel pattern without constipation or diarrhea Social Work: Goals Discharge Plan return home with home care svs and family support Potential for Family Training pt's has been unable to attend family training due to work committments Anticipated Discharge Home Destination Discharge With home care svs and family support Care Plan: Care Plan ADL's - Improve/Maintain Start: 02/21/18 14:47 Freq: DAILY Status: Active Target: Protocol: Activity Type Activity Date Activity User E-Sign Co-Sign Detail Recorded Client Recorded Date Recorded By Document 03/06/18 09:26 [id number] 03/06/18 09:26 [id number] 03/06/18 09:26 PMRU Outcome: ADL's/ADL Transfers Orders/Interventions Occupational Therapy Evaluation & Treatment Communication Tool in Patient Room Patient to receive OT 5x/wk for 60-120 Therex min/day Self Care Management Group Therapy UE/LE ADL's with Assist Yes: min A for LE ADLs ADL Transfers with Assist Yes: mod I Toileting: Transfers,Clothing Management Yes: mod I ,Hygeine w/Assist Light Kitchen/Laundry w/Assist No Progression Toward Outcome/Goals Progressing Outcome/Goals Met Pt likely to meet goals within 24 hours . [ End ] DVT Prophylaxis- Improve/Maintain Start: 02/20/18 22:40 Freq: QSHIFT Status: Active Target: Protocol: Activity Type Activity Date Activity User E-Sign Co-Sign Detail Recorded Client Recorded Date Recorded By Document 03/06/18 00:07 [id number] 03/06/18 00:08 [id number] 03/06/18 00:07 PMRU Outcome: DVT Prophylaxis Outcome/Goals Remains Free of DVT Free of complications from current DVT Demonstrates Knowledge of DVT Prevention/ Treatment Progression Toward Outcome/Goals Progressing /GI-Improve/Maintain Start: 02/20/18 22:40 Freq: QSHIFT Status: Active Target: Protocol: Activity Type Activity Date Activity User E-Sign Co-Sign Detail Recorded Client Recorded Date Recorded By Document 03/06/18 00:07 [id number] 03/06/18 00:08 [id number] 03/06/18 00:07 PMRU Outcome: Genitourinary/ Gastrointestinal Genitourinary- Outcome/Goals Maintain/ Achieve Urinary Continence Remain Free of Hospital- Acquired UTI Gastrointestinal-Outcome/Goals Maintain/ Achieve Bowel Regularity in Accordance with Pt's Baseline Prevent Constipation Laxatives as Ordered Bowel Program Progression Toward Outcome/Goals - Progressing Progression Toward Outcome/Goals - GI Progressing Medication Administration Start: 02/20/18 22:40 Freq: QSHIFT Status: Active Target: Protocol: Activity Type Activity Date Activity User E-Sign Co-Sign Detail Recorded Client Recorded Date Recorded By Document 03/06/18 00:07 [id number] 03/06/18 00:08 [id number] 03/06/18 00:07 PMRU Outcome: Medication Administration Assess Patient Knowledge/Teach Med Yes Education for all Meds Outcome/Goals Patient Independent with Medication Administration at Home Demonstrates Understanding Progression Towards Outcome/Goals Progressing Is Patient Going Home on Lovenox? No Pain/Comfort- Improve/Maintain Start: 02/20/18 22:40 Freq: QSHIFT Status: Active Target: Protocol: Activity Type Activity Date Activity User E-Sign Co-Sign Detail Recorded Client Recorded Date Recorded By Document 03/06/18 00:07 [id number] 03/06/18 00:08 [id number] 03/06/18 00:07 PMRU Outcome: Pain/Comfort Outcome/Goals Demonstrates Knowledge and Use of Available Comfort Measures Achieves Acceptable Comfort/Pain Level as Determined by Patient/Condit Maintain Comfort Level Allowing Patient to Fully Participate in Rehab Progression Toward Outcome/Goals Progressing Respiratory - Improve/Maintain Start: 02/20/18 22:40 Freq: QSHIFT Status: Active Target: Protocol: Activity Type Activity Date Activity User E-Sign Co-Sign Detail Recorded Client Recorded Date Recorded By Document 03/06/18 00:07 [id number] 03/06/18 00:08 [id number] 03/06/18 00:07 PMRU Outcome: Respiratory Does Patient Have a Trach No Outcome/Goals Maintain/ Improve O2 Sat per MD Order Maintain/ Improve Baseline Respiratory Status Maintain/ Improve Activity Tolerance Progression Toward Outcome/Goals Progressing Medicine Note: Length of Stay: 3 days Anticipated Discharge Destination: Home Tentative Discharge Date: 03/09/18 Discharged to: Home
--- NOTE | 2018-03-06 18:28 | PN ---
Progress Note Date of Service: 03/06/18 Note: PATRICIO BONDS was visited. Therapy notes read and reviewed. He was discussed in interdisciplinary team rounds. He is doing well. Had a BM today, now off Reglan. Current Medications: Active Medications Generic Name Dose Route Start Last Admin Trade Name Freq PRN Reason Stop Dose Admin Acetaminophen 650 mg 02/20/18 15:45 03/06/18 15:49 Tylenol Tab* PO 650 mg Q6H PRN Administration FEVER/PAIN Atenolol 25 mg 02/21/18 09:00 03/06/18 08:15 Tenormin Tab* PO 25 mg DAILY JULIAN Administration Docusate Sodium 100 mg 02/20/18 21:00 03/06/18 08:16 Colace Cap* PO 100 mg BID JULIAN Administration Enoxaparin Sodium 40 mg 02/21/18 09:00 03/06/18 08:16 Lovenox(*) SUBCUT 40 mg Q24H JULIAN Administration Famotidine 20 mg 02/23/18 00:28 02/24/18 21:33 Pepcid Tab* PO 20 mg Q12H PRN Administration HEARTBURN Lactulose 30 ml 02/21/18 19:50 Lactulose* PO Q6H PRN CONSTIPATION Magnesium Hydroxide 30 ml 02/21/18 19:49 02/27/18 09:49 Milk Of Magnesia Liq* PO 30 ml Q6H PRN Administration CONSTIPATION Melatonin 3 mg 03/01/18 21:00 03/05/18 21:33 Melatonin PO 3 mg BEDTIME JULIAN Administration Protocol Methocarbamol 750 mg 02/20/18 15:55 03/06/18 15:50 Robaxin Tab* PO 750 mg TID PRN Administration SPASMS Omeprazole 20 mg 02/21/18 06:00 03/06/18 06:11 Prilosec Cap* PO 20 mg 0600 JULIAN Administration Ropinirole HCl 1 mg 02/20/18 15:52 03/05/18 21:34 Requip Tab* PO 1 mg BEDTIME PRN Administration LEG CRAMPS Senna 2 tab 02/20/18 21:00 03/05/18 21:33 Senokot Tab* PO 2 tab BEDTIME JULIAN Administration Simethicone 80 mg 02/20/18 20:14 02/27/18 05:06 Mylicon Tab* PO 80 mg Q4H PRN Administration GAS Sodium Biphosphate/Sodium Phosphate 1 bottle 02/20/18 15:45 02/21/18 22:19 Fleet Enema* [place] 1 bottle DAILY PRN Administration CONSTIPATION Tamsulosin HCl 0.4 mg 02/21/18 09:00 03/06/18 08:16 Flomax Cap* PO 0.4 mg DAILY JULIAN Administration Tramadol HCl 50 mg 02/21/18 19:28 02/26/18 15:21 Ultram* PO 50 mg Q6H PRN Administration PAIN - MODERATE Vital Signs: Vital Signs Temp Pulse Resp BP Pulse Ox 97.7 F 64 16 115/67 99 03/06/18 15:53 03/06/18 15:53 03/06/18 18:00 03/06/18 15:53 03/06/18 15:53 Exam: GEN: No acute distress. Alert and appropriate. LUNGS: Clear to auscultation bilaterally HEART: regular rate and rhythm ABDOMEN: + bowel sounds, soft, non-tender, non-distended EXTREMITIES: Legs in immobilizers. No pedal edema. NEUROLOGIC: Able to move all 4 extremities with normal sensation. No focal weakness. Knees immobilized Assessment/Plan: 1. Bilateral quadriceps tendon rupture: WBAT in immobilizers. PT/OT. f/u with Dr. Veronica 2. Restless Legs: Requip 3. BPH: Flomax 4. DVT Prophylaxis: Lovenox 5. Analgesia: Ultram, tylenol 6. Insomnia: melatonin 03/06/18 18:28
[2018-03-06] MEDS: Senna TAB PO SCH (20:21)
[2018-03-06] MEDS: rOPINIRole TAB* 1 MG PO PRN (22:03)
[2018-03-06] MEDS: Melatonin 3 MG TAB PO SCH (22:03)
[2018-03-07] MEDS: Omeprazole CAP* 20 MG PO SCH (06:30)
[2018-03-07 07:07] LABS: ABS Basophils 0.1 10^3/ul (0-0.2); ABS Eosinophils 0.2 10^3/ul (0-0.6); ABS Lymphocytes 1.4 10^3/ul (1.0-4.8); ABS Monocytes 0.6 10^3/ul (0-0.8); ABS Neutrophils 3.9 10^3/ul (1.5-7.7); ABS Nucleated RBC 0 10^3/ul; Eosinophil % 3.7 %; Hematocrit 39 % (42-52); Hemoglobin 13.1 g/dl (14.0-18.0); Lymphocyte % 22.9 %; Mean Corpuscular HGB Conc 33 g/dl (31-36); Mean Corpuscular Hemoglobin 30 pg (27-31); Mean Corpuscular Volume 89 fL (80-94); Mean Platelet Volume 8.2 fL (7.4-10.4); Nucleated Red Blood Cells % 0.1; Platelet Count 304 10^3/ul (150-450); Red Blood Count 4.42 10^6/ul (4.00-5.40); Red Cell Distribution Width 14 % (10.5-15); White Blood Count 6.3 10^3/ul (3.5-10.8)
[2018-03-07 07:31] LABS: EGFR Non-African American 106.2 (>60)
[2018-03-07] MEDS: Tamsulosin CAP* 0.4 MG PO SCH (09:23)
[2018-03-07] MEDS: Docusate CAP* 100 MG PO SCH ×2 (09:23→21:27)
[2018-03-07] MEDS: Atenolol TAB* 25 MG PO SCH (09:23)
[2018-03-07] MEDS: Acetaminophen TAB* 325 MG PO PRN ×3 (09:23→21:28)
[2018-03-07] MEDS: Enoxaparin(*) 40 MG/0.4 ML SYR SUBCUT SCH (09:25)
[2018-03-07] MEDS: Methocarbamol TAB* 500 MG PO PRN (15:26)
--- NOTE | 2018-03-07 19:19 | PN ---
Progress Note Date of Service: 03/07/18 Note: PATRICIO BONDS was visited. Therapy notes read and reviewed. He is doing well. Pain manageable and having bowel movements. Doing well. Current Medications: Active Medications Generic Name Dose Route Start Last Admin Trade Name Freq PRN Reason Stop Dose Admin Acetaminophen 650 mg 02/20/18 15:45 03/07/18 15:25 Tylenol Tab* PO 650 mg Q6H PRN Administration FEVER/PAIN Atenolol 25 mg 02/21/18 09:00 03/07/18 09:23 Tenormin Tab* PO 25 mg DAILY JULIAN Administration Docusate Sodium 100 mg 02/20/18 21:00 03/07/18 09:23 Colace Cap* PO 100 mg BID JULIAN Administration Enoxaparin Sodium 40 mg 02/21/18 09:00 03/07/18 09:25 Lovenox(*) SUBCUT 40 mg Q24H JULIAN Administration Famotidine 20 mg 02/23/18 00:28 02/24/18 21:33 Pepcid Tab* PO 20 mg Q12H PRN Administration HEARTBURN Lactulose 30 ml 02/21/18 19:50 Lactulose* PO Q6H PRN CONSTIPATION Magnesium Hydroxide 30 ml 02/21/18 19:49 02/27/18 09:49 Milk Of Magnesia Liq* PO 30 ml Q6H PRN Administration CONSTIPATION Melatonin 3 mg 03/01/18 21:00 03/06/18 22:03 Melatonin PO 3 mg BEDTIME JULIAN Administration Protocol Methocarbamol 750 mg 02/20/18 15:55 03/07/18 15:26 Robaxin Tab* PO 750 mg TID PRN Administration SPASMS Omeprazole 20 mg 02/21/18 06:00 03/07/18 06:30 Prilosec Cap* PO 20 mg 0600 JULIAN Administration Ropinirole HCl 1 mg 02/20/18 15:52 03/06/18 22:03 Requip Tab* PO 1 mg BEDTIME PRN Administration LEG CRAMPS Senna 2 tab 02/20/18 21:00 03/06/18 20:21 Senokot Tab* PO 2 tab BEDTIME JULIAN Administration Simethicone 80 mg 02/20/18 20:14 02/27/18 05:06 Mylicon Tab* PO 80 mg Q4H PRN Administration GAS Sodium Biphosphate/Sodium Phosphate 1 bottle 02/20/18 15:45 02/21/18 22:19 Fleet Enema* [place] 1 bottle DAILY PRN Administration CONSTIPATION Tamsulosin HCl 0.4 mg 02/21/18 09:00 03/07/18 09:23 Flomax Cap* PO 0.4 mg DAILY JULIAN Administration Tramadol HCl 50 mg 02/21/18 19:28 02/26/18 15:21 Ultram* PO 50 mg Q6H PRN Administration PAIN - MODERATE Vital Signs: Vital Signs Temp Pulse Resp BP Pulse Ox 97.6 F 65 16 113/66 100 03/07/18 15:46 03/07/18 15:46 03/07/18 17:25 03/07/18 15:46 03/07/18 15:46 Lab Results: Laboratory Results - last 24 hr 03/07/18 03/07/18 06:53 06:53 WBC 6.3 RBC 4.42 Hgb 13.1 L Hct 39 L MCV 89 MCH 30 MCHC 33 RDW 14 Plt Count 304 MPV 8.2 Neut % (Auto) 61.7 Lymph % (Auto) 22.9 Lynn % (Auto) 10.3 Eos % (Auto) 3.7 Baso % (Auto) 1.4 Absolute Neuts (auto) 3.9 Absolute Lymphs (auto) 1.4 Absolute Monos (auto) 0.6 Absolute Eos (auto) 0.2 Absolute Basos (auto) 0.1 Absolute Nucleated RBC 0 Nucleated RBC % 0.1 Sodium 139 Potassium 4.0 Chloride 107 Carbon Dioxide 26 Anion Gap 6 BUN 15 Creatinine 0.75 Est GFR ( Amer) 128.5 Est GFR (Non-Af Amer) 106.2 BUN/Creatinine Ratio 20.0 Glucose 112 H Calcium 9.2 Total Bilirubin 0.60 AST 18 ALT 22 Alkaline Phosphatase 65 Total Protein 5.9 L Albumin 3.4 Globulin 2.5 Albumin/Globulin Ratio 1.4 Exam: GEN: No acute distress. Alert and appropriate. LUNGS: Clear to auscultation bilaterally HEART: regular rate and rhythm ABDOMEN: + bowel sounds, soft, non-tender, non-distended EXTREMITIES: Legs in immobilizers. No pedal edema. NEUROLOGIC: Able to move all 4 extremities with normal sensation. No focal weakness. Knees immobilized Assessment/Plan: 1. Bilateral quadriceps tendon rupture: WBAT in immobilizers. PT/OT. f/u with Dr. Veronica 2. Restless Legs: Requip 3. BPH: Flomax 4. DVT Prophylaxis: Lovenox 5. Analgesia: Ultram, tylenol 6. Insomnia: melatonin 03/07/18 19:19
[2018-03-07] MEDS: rOPINIRole TAB* 1 MG PO PRN (21:27)
[2018-03-07] MEDS: Melatonin 3 MG TAB PO SCH (21:27)
[2018-03-07] MEDS: Senna TAB PO SCH (21:29)
[2018-03-08] MEDS: Omeprazole CAP* 20 MG PO SCH (05:24)
[2018-03-08] MEDS: Tamsulosin CAP* 0.4 MG PO SCH (09:07)
[2018-03-08] MEDS: Atenolol TAB* 25 MG PO SCH (09:07)
[2018-03-08] MEDS: Docusate CAP* 100 MG PO SCH ×2 (09:07→21:30)
[2018-03-08] MEDS: Acetaminophen TAB* 325 MG PO PRN ×3 (09:08→21:31)
[2018-03-08] MEDS: Enoxaparin(*) 40 MG/0.4 ML SYR SUBCUT SCH (09:09)
--- NOTE | 2018-03-08 13:18 | PN ---
Progress Note Date of Service: 03/08/18 Note: PATRICIO BONDS was visited. Nursing and therapy notes read and reviewed. No chest pain, shortness of breath or abdominal pain. Current Medications: Active Medications Generic Name Dose Route Start Last Admin Trade Name Freq PRN Reason Stop Dose Admin Acetaminophen 650 mg 02/20/18 15:45 03/08/18 09:08 Tylenol Tab* PO 650 mg Q6H PRN Administration FEVER/PAIN Atenolol 25 mg 02/21/18 09:00 03/08/18 09:07 Tenormin Tab* PO 25 mg DAILY JULIAN Administration Docusate Sodium 100 mg 02/20/18 21:00 03/08/18 09:07 Colace Cap* PO 100 mg BID JULIAN Administration Enoxaparin Sodium 40 mg 02/21/18 09:00 03/08/18 09:09 Lovenox(*) SUBCUT 40 mg Q24H JULIAN Administration Famotidine 20 mg 02/23/18 00:28 02/24/18 21:33 Pepcid Tab* PO 20 mg Q12H PRN Administration HEARTBURN Lactulose 30 ml 02/21/18 19:50 Lactulose* PO Q6H PRN CONSTIPATION Magnesium Hydroxide 30 ml 02/21/18 19:49 02/27/18 09:49 Milk Of Magnesia Liq* PO 30 ml Q6H PRN Administration CONSTIPATION Melatonin 3 mg 03/01/18 21:00 03/07/18 21:27 Melatonin PO 3 mg BEDTIME JULIAN Administration Protocol Methocarbamol 750 mg 02/20/18 15:55 03/07/18 15:26 Robaxin Tab* PO 750 mg TID PRN Administration SPASMS Omeprazole 20 mg 02/21/18 06:00 03/08/18 05:24 Prilosec Cap* PO 20 mg 0600 JULIAN Administration Ropinirole HCl 1 mg 02/20/18 15:52 03/07/18 21:27 Requip Tab* PO 1 mg BEDTIME PRN Administration LEG CRAMPS Senna 2 tab 02/20/18 21:00 03/07/18 21:29 Senokot Tab* PO 2 tab BEDTIME JULIAN Administration Simethicone 80 mg 02/20/18 20:14 02/27/18 05:06 Mylicon Tab* PO 80 mg Q4H PRN Administration GAS Sodium Biphosphate/Sodium Phosphate 1 bottle 02/20/18 15:45 02/21/18 22:19 Fleet Enema* [place] 1 bottle DAILY PRN Administration CONSTIPATION Tamsulosin HCl 0.4 mg 02/21/18 09:00 03/08/18 09:07 Flomax Cap* PO 0.4 mg DAILY JULIAN Administration Tramadol HCl 50 mg 02/21/18 19:28 02/26/18 15:21 Ultram* PO 50 mg Q6H PRN Administration PAIN - MODERATE Vital Signs: Vital Signs Temp Pulse Resp BP Pulse Ox 98.7 F 58 20 116/73 97 03/08/18 05:21 03/08/18 05:21 03/08/18 05:21 03/08/18 05:21 03/08/18 05:21 Exam: GEN: No acute distress. Alert and appropriate. LUNGS: Clear to auscultation bilaterally HEART: regular rate and rhythm ABDOMEN: + bowel sounds, soft, non-tender, non-distended EXTREMITIES: Legs in immobilizers. No pedal edema. NEUROLOGIC: Able to move all 4 extremities with normal sensation. No focal weakness. Knees immobilized Assessment/Plan: 1. Bilateral quadriceps tendon rupture: WBAT in immobilizers. PT/OT. f/u with Dr. Veronica next week 2. Restless Legs: Requip 3. BPH: Flomax 4. DVT Prophylaxis: Lovenox [address] Veronica. Teach self administration. 5. Analgesia: Ultram, tylenol 6. Insomnia: melatonin 7. Dispo: anticipate d/c tomorrow afternoon 03/08/18 13:15
[2018-03-08] MEDS: Methocarbamol TAB* 500 MG PO PRN ×2 (15:35→21:29)
[2018-03-08] MEDS: Senna TAB PO SCH (21:30)
[2018-03-08] MEDS: Melatonin 3 MG TAB PO SCH (21:31)
[2018-03-08] MEDS: rOPINIRole TAB* 1 MG PO PRN (21:33)
[2018-03-09] MEDS: Omeprazole CAP* 20 MG PO SCH (05:53)
[2018-03-09 06:05] VITALS: BP 118/73
[2018-03-09] MEDS: Docusate CAP* 100 MG PO SCH (09:31)
[2018-03-09] MEDS: Atenolol TAB* 25 MG PO SCH (09:32)
[2018-03-09] MEDS: Tamsulosin CAP* 0.4 MG PO SCH (09:32)
[2018-03-09] MEDS: Acetaminophen TAB* 325 MG PO PRN (09:32)
[2018-03-09] MEDS: Enoxaparin(*) 40 MG/0.4 ML SYR SUBCUT SCH (09:33)
--- NOTE | 2018-03-09 10:10 | PN ---
Progress Note Date of Service: 03/09/18 Note: PATRICIO BONDS was visited. Nursing and therapy notes read and reviewed. No chest pain, shortness of breath or abdominal pain. He is eager to head home today. Current Medications: Active Medications Generic Name Dose Route Start Last Admin Trade Name Freq PRN Reason Stop Dose Admin Acetaminophen 650 mg 02/20/18 15:45 03/09/18 09:32 Tylenol Tab* PO 650 mg Q6H PRN Administration FEVER/PAIN Atenolol 25 mg 02/21/18 09:00 03/09/18 09:32 Tenormin Tab* PO 25 mg DAILY JULIAN Administration Docusate Sodium 100 mg 02/20/18 21:00 03/09/18 09:31 Colace Cap* PO 100 mg BID JULIAN Administration Enoxaparin Sodium 40 mg 02/21/18 09:00 03/09/18 09:33 Lovenox(*) SUBCUT 40 mg Q24H JULIAN Administration Famotidine 20 mg 02/23/18 00:28 02/24/18 21:33 Pepcid Tab* PO 20 mg Q12H PRN Administration HEARTBURN Lactulose 30 ml 02/21/18 19:50 Lactulose* PO Q6H PRN CONSTIPATION Magnesium Hydroxide 30 ml 02/21/18 19:49 02/27/18 09:49 Milk Of Magnesia Liq* PO 30 ml Q6H PRN Administration CONSTIPATION Melatonin 3 mg 03/01/18 21:00 03/08/18 21:31 Melatonin PO 3 mg BEDTIME JULIAN Administration Protocol Methocarbamol 750 mg 02/20/18 15:55 03/08/18 21:29 Robaxin Tab* PO 750 mg TID PRN Administration SPASMS Omeprazole 20 mg 02/21/18 06:00 03/09/18 05:53 Prilosec Cap* PO 20 mg 0600 JULIAN Administration Ropinirole HCl 1 mg 02/20/18 15:52 03/08/18 21:33 Requip Tab* PO 1 mg BEDTIME PRN Administration LEG CRAMPS Senna 2 tab 02/20/18 21:00 03/08/18 21:30 Senokot Tab* PO 2 tab BEDTIME JULIAN Administration Simethicone 80 mg 02/20/18 20:14 02/27/18 05:06 Mylicon Tab* PO 80 mg Q4H PRN Administration GAS Sodium Biphosphate/Sodium Phosphate 1 bottle 02/20/18 15:45 02/21/18 22:19 Fleet Enema* AR 1 bottle DAILY PRN Administration CONSTIPATION Tamsulosin HCl 0.4 mg 02/21/18 09:00 03/09/18 09:32 Flomax Cap* PO 0.4 mg DAILY JULIAN Administration Tramadol HCl 50 mg 02/21/18 19:28 02/26/18 15:21 Ultram* PO 50 mg Q6H PRN Administration PAIN - MODERATE Vital Signs: Vital Signs Temp Pulse Resp BP Pulse Ox 98.4 F 64 20 118/73 98 03/09/18 05:51 03/09/18 05:51 03/09/18 05:51 03/09/18 05:51 03/09/18 05:51 Exam: GEN: No acute distress. Alert and appropriate. LUNGS: Clear to auscultation bilaterally HEART: regular rate and rhythm ABDOMEN: + bowel sounds, soft, non-tender, non-distended EXTREMITIES: Legs in immobilizers. No pedal edema. NEUROLOGIC: Able to move all 4 extremities with normal sensation. No focal weakness. Knees immobilized SKIN: bilateral knee incisions are c/d/i. skin glued. Assessment/Plan: 1. Bilateral quadriceps tendon rupture: WBAT in immobilizers. f/u with Dr. Veronica next week 2. Restless Legs: Requip 3. BPH: Flomax 4. DVT Prophylaxis: Lovenox [address] Veronica. 5. Analgesia:tylenol. Methocarbamol for muscle spasms prn. 6. Insomnia: melatonin 7. Dispo: d/c today after family training. 03/09/18 10:09
--- NOTE | 2018-03-10 08:57 | DS ---
CC: Dr. Veronica; Dr. Mcqueen REHABILITATION DISCHARGE: DATE OF ADMISSION: 02/20/18 DATE OF DISCHARGE: 03/09/18 ORTHOPEDIC SURGEON: Dr. Veronica. PRIMARY CARE PROVIDER: Dr. Mcqueen. REASON FOR ADMISSION: Bilateral quadriceps tendon rupture. HISTORY OF PRESENT ILLNESS: For full details of his acute hospitalization leading up to his admission, please see the note dictated by Dr. Mckeon on as well as the note from his acute stay at [facility]. REHABILITATION COURSE: During his time on the [facility], he developed abdominal pain within his first 24 hours of admission. X-ray showed an ileus. He was put on a clear liquid diet and IV fluids. In addition, opioids were held and he was to use tramadol on an as-needed basis. IV Reglan was initiated as well. Gradually, he improved and was able to get back to a regular diet. Fortunately, his pain got to be minimal enough that he could manage just using Tylenol. He did develop some muscle spasms that were treated with methocarbamol on an as-needed basis and appeared to be effective. He continued using bilateral knee immobilizers and weightbearing as tolerated. Dr. Veronica saw him within the week prior to discharge and advised that she wanted him to continue with knee immobilizers until she follows up with him further as an outpatient. In addition, she recommended an additional 2 weeks of DVT prophylaxis with Lovenox. He was instructed in doing that medication for the next 2 weeks. Due to insomnia, he started using melatonin on an as-needed basis. He has progressed well with physical therapy and at the time of discharge, he was independent with bed mobility, transfers using rolling walker , and ambulation using a rolling walker up to 150 feet. He is also independent using a manual wheelchair up to 400 feet. He was unable to manage doing stairs , however, with bilateral knee immobilizers on and therefore will be using either wheelchair transport or ambulatory services to get him in and out of his house on a stretcher. He has a home exercise program to continue after he leaves. He also participated well in occupational therapy and at the time of discharge was independent with eating. He requires assistance for showering. He needs setup for sponge bath with walker and a long handled sponge. He can dress with supervision using a social work lecturer, sock aid, and walker. He needs assistance for any difficult shoes. He is independent toileting with a walker and a commode. He is independent with a walker for small home management tasks , but needs assistance for larger tasks. His came in for training prior to his discharge. DISCHARGE CONDITION: Good. DISCHARGE DISPOSITION: Home with family support. MEDICATIONS: 1. Docusate 100 mg b.i.d. 2. Lovenox 40 mg subcutaneously q.24 hours for 2 more weeks. 3. Melatonin 3 mg q.h.s. p.r.n. 4. Methocarbamol 750 mg t.i.d. p.r.n. muscle spasm. 5. Simethicone 80 mg q.4 hours p.r.n. gas. 6. Senna 2 tablets q.h.s. p.r.n. constipation. 7. Flomax 0.4 mg daily. 8. Cetirizine 10 mg daily p.r.n. 9. Requip 1 mg q.h.s. p.r.n. 10. Atenolol 25 mg daily. 11. Acetaminophen 650 mg q.4 hours p.r.n. pain. FOLLOWUP: 1. A referral has been sent to the [facility] for senior living, physical therapy, occupational therapy, and home health aide. 2. Patient to follow up with Dr. Mcqueen, his primary care provider, in 1 to 2 weeks. 3. Follow up with Dr. Veronica next week. DISCHARGE DIAGNOSES: 1. Bilateral quadriceps tendon rupture, status post surgery. 2. Ileus. 3. Benign prostatic hypertrophy. 4. Hypertension. 5. Restless legs syndrome. [id number]/[facility] #: [id number] NATALIE
== END 2018-03-09 10:16 | disposition home health service (06) | DRG 860 ==
LOC: PMRU 14:52
PROVIDERS: ADMIT Physical Medicine & Rehabilitation; ATTEND Physical Medicine & Rehabilitation
PROC: F07Z5ZZ Bed Mobility Treatment (ICD-10-PCS; principal; 2018-02-20)
PROC: F07Z9ZZ Gait Training/Functional Ambulation Treatment (ICD-10-PCS; 2018-02-20)
PROC: F07Z8ZZ Transfer Training Treatment (ICD-10-PCS; 2018-02-20)
PROC: F07Z4ZZ Wheelchair Mobility Treatment (ICD-10-PCS; 2018-02-20)
PROC: F08Z0ZZ Bathing/Showering Techniques Treatment (ICD-10-PCS; 2018-02-20)
PROC: F08Z1ZZ Dressing Techniques Treatment (ICD-10-PCS; 2018-02-20)
PROC: F08Z3ZZ Feeding/Eating Treatment (ICD-10-PCS; 2018-02-20)
DX: Z47.89 Encounter for other orthopedic aftercare (principal); K56.7 Ileus, unspecified; S76.112D Strain of left quadriceps muscle, fascia and tendon, subsequent encounter; S76.111D Strain of right quadriceps muscle, fascia and tendon, subsequent encounter; W10.8XXD Fall (on) (from) other stairs and steps, subsequent encounter; N40.0 Benign prostatic hyperplasia without lower urinary tract symptoms; I10 Essential (primary) hypertension; G25.81 Restless legs syndrome; G47.00 Insomnia, unspecified; F51.9 Sleep disorder not due to a substance or known physiological condition, unspecified; Z79.899 Other long term (current) drug therapy
CPT/HCPCS: 36415; 74019; 80053; 85025; A9270-GY; J1650; J2765

== ENCOUNTER 2018-03-15 22:51 | Emergency (ER) | payer OTHER ==
--- NOTE | 2018-03-16 00:27 | ED ---
Lower Extremity - HPI Summary HPI Summary: This patient is a 58 year old M presenting to [facility] accompanied by with a chief complaint of bilateral foot and ankle swelling that began yesterday. The patient rates the pain 4/10 in severity. Symptoms aggravated by nothing. Symptoms alleviated by nothing. Pt reports he had surgery 4 weeks ago for spontaneous tendon rupture in both knees. - History of Current Complaint Chief Complaint: EDExtremityLower Stated Complaint: SWELLING IN FEET AND LEGS Hx Obtained From: Patient Onset of Pain: Hours Onset/Duration: Hours Severity Initially: Moderate Severity Currently: Moderate Pain Intensity: 4 Pain Scale Used: 0-10 Numeric Timing: Constant Location: Is Discrete @ - Bilateral feet and ankles Aggravating Factor(s): Nothing Alleviating Factor(s): Nothing Able to Bear Weight: Yes - Allergies/Home Medications Allergies/Adverse Reactions: Allergies Allergy/AdvReac Type Severity Reaction Status Date / Time No Known Allergies Allergy Verified 03/15/18 22:58 PMH/Surg Hx/FS Hx/Imm Hx Previously Healthy: No Endocrine/Hematology History: Denies: Hx Diabetes, Hx Thyroid Disease Cardiovascular History: Reports: Hx Congenital Heart Disease - heart surgery age 4, Other Cardiovascular Problems/Disorders - 3 cardiac caths; open heart surgery at age 4 Denies: Hx Congestive Heart Failure, Hx Hypertension, Hx Pacemaker/ICD Respiratory History: Reports: Hx Pneumonia - as a child Denies: Hx Asthma, Hx Chronic Obstructive Pulmonary Disease (COPD) GI History: Denies: Hx Ulcer, Other GI Disorders History: Reports: Hx Benign Prostatic Hyperplasia Denies: Hx Renal Disease Musculoskeletal History: Reports: Hx Arthritis - knees, Other Musculoskeletal History - Rotator cuff surgery, R foot spacer from bunion Sensory History: Reports: Hx Contacts or Glasses Denies: Hx Hearing Aid Opthamlomology History: Reports: Hx Contacts or Glasses Psychiatric History: Denies: Hx Panic Disorder - Surgical History Surgery Procedure, Year, and Place: 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 appy. hernia bilateral. RCT repair. heart caths x 3. Vasectomy Infectious Disease History: No Infectious Disease History: Reports: Hx Clostridium Difficile Denies: Hx Hepatitis, Hx Human Immunodeficiency Virus (HIV), Hx of Known/ Suspected MRSA, Hx Shingles, Hx Tuberculosis, Hx Known/Suspected VRE, Hx Known/ Suspected VRSA, History Other Infectious Disease, Traveled Outside the [place] in Last 30 Days - Family History Known Family History: Positive: Unknown, Cardiac Disease - Father: CHF, pacemaker. Paternal grandfather: [place] at age 60., Other - Mother: scarlet fever Negative: Hypertension, Diabetes - Social History Occupation: Employed Full-time Lives: With Family Alcohol Use: Occasionally Hx Substance Use: No Substance Use Type: Reports: None Hx Tobacco Use: Yes Smoking Status (MU): Former Smoker Have You Smoked in the Last Year: No Review of Systems Negative: Fever Positive: Edema All Other Systems Reviewed And Are Negative: Yes Physical Exam - Summary Physical Exam Summary: VITAL SIGNS: Reviewed. GENERAL: Patient is a well-developed and nourished male who is lying comfortable in the stretcher. Patient is not in any acute respiratory distress. HEAD AND FACE: No signs of trauma. No ecchymosis, hematomas or skull depressions. No sinus tenderness. EYES: PERRLA, EOMI x 2, No injected conjunctiva, no nystagmus. EARS: Hearing grossly intact. Ear canals and tympanic membranes are within normal limits. MOUTH: Oropharynx within normal limits. NECK: Supple, trachea is midline, no adenopathy, no JVD, no carotid bruit, no c- spine tenderness, neck with full ROM. CHEST: Symmetric, no tenderness at palpation LUNGS: Clear to auscultation bilaterally. No wheezing or crackles. CVS: Regular rate and rhythm, S1 and S2 present, no murmurs or gallops appreciated. ABDOMEN: Soft, non-tender. No signs of distention. No rebound no guarding, and no masses palpated. Bowel sounds are normal. EXTREMITIES: FROM in all major joints, no cyanosis or clubbing. Scars over both knees, healing well. No pain. Mild ankle edema bilaterally. No calf tenderness. NEURO: Alert and oriented x 3. No acute neurological deficits. Speech is normal and follows commands. SKIN: Dry and warm Triage Information Reviewed: Yes Vital Signs On Initial Exam: Initial Vitals Temp Pulse Resp BP Pulse Ox 98.2 F 70 16 109/70 94 03/15/18 22:53 03/15/18 22:53 03/15/18 22:53 03/15/18 22:53 03/15/18 22:53 Vital Signs Reviewed: Yes Diagnostics - Vital Signs Vital Signs Temp Pulse Resp BP Pulse Ox 03/15/18 22:53 98.2 F 70 16 109/70 94 - Laboratory Result Diagrams: 12/07/18 00:36 03/16/18 00:36 Lab Statement: Any lab studies that have been ordered have been reviewed, and results considered in the medical decision making process. Re-Evaluation - Re-Evaluation First Eval Re-Evaluation Time: 01:29 Change: Unchanged Comment: Discussed results and plan of care with patient Lower Extremity Course/Dx - Course Course Of Treatment: This patient is a 58 year old M presenting to [facility] accompanied by with a chief complaint of bilateral foot and ankle swelling that began yesterday. Physical Exam Findings: scars over both knees, healing well. No pain. Mild ankle edema bilaterally. No calf tenderness. Bloodwork obtained. Patient D-dimer came back elevated, >1050. Patient already takes Lovenox for DVT prophylaxis. Patient states he took the dose att 8pm. There is no US failure analysis technician at this time to perform lower extremity US to rule out DVT. Pt will be given 60 mg of Lovenox now, to make his dose 1 mg/kg per dose every 12 hours. Patient advised to return tomorrow morning for lower extremity US. Patient states he has an appointment with his orthopedic surgeon tomorrow, and we will arrange for the patient to take the US there in the morning. Pt advised if he was not able to get US by 1 pm, he should take 100 mg of Lovenox. Patient will be discharged with follow up from orthopedic surgeon. The patient is agreeable with this plan. - Diagnoses Provider Diagnoses: Swelling of both lower extremities Discharge - Sign-Out/Discharge Documenting (check all that apply): Patient Departure - Discharge home - Discharge Plan Condition: Stable Disposition: HOME Patient Education Materials: Edema (ED), Deep Vein Thrombosis (ED) Referrals: Ousmane Mcqueen MD [Primary Care Provider] - 2 Days Beatrice Veronica MD [Medical Doctor] - As Soon As Possible Additional Instructions: RETURN TO THE EMERGENCY DEPARTMENT OR TO YOUR ORTHOPEDIST FOR ULTRASOUND IF YOU ARE UNABLE TO GET ULTRASOUND IN THE MORNING, TAKE 100 MG OF LOVENOX AT 1PM RETURN TO THE EMERGENCY DEPARTMENT FOR NEW OR WORSENING SYMPTOMS - Attestation Statements Document Initiated by Chrisibgeovanna: Yes Documenting Scribe: Johnna Reynolds Provider For Whom Stevo is Documenting (Include Credential): Dr. Mitesh Velasquez MD Scribgeovanna Attestation: I, Johnna Reynolds, scribed for Dr. Mitesh Velasquez MD on 03/16/18 at 0136. Status of Scribe Document: Ready
[2018-03-16 00:44] LABS: ABS Basophils 0.1 10^3/ul (0-0.2); ABS Eosinophils 0.3 10^3/ul (0-0.6); ABS Lymphocytes 1.9 10^3/ul (1.0-4.8); ABS Monocytes 0.9 10^3/ul (0-0.8); ABS Neutrophils 3.2 10^3/ul (1.5-7.7); ABS Nucleated RBC 0 10^3/ul; Eosinophil % 4.9 %; Hematocrit 37 % (42-52); Hemoglobin 12.6 g/dl (14.0-18.0); Lymphocyte % 29.7 %; Mean Corpuscular HGB Conc 34 g/dl (31-36); Mean Corpuscular Hemoglobin 30 pg (27-31); Mean Corpuscular Volume 89 fL (80-94); Mean Platelet Volume 8.3 fL (7.4-10.4); Nucleated Red Blood Cells % 0; Platelet Count 253 10^3/ul (150-450); Red Blood Count 4.19 10^6/ul (4.00-5.40); Red Cell Distribution Width 13 % (10.5-15); White Blood Count 6.3 10^3/ul (3.5-10.8)
[2018-03-16 00:52] LABS: INR 0.98 (0.77-1.02)
[2018-03-16 01:00] LABS: EGFR Non-African American 88.3 (>60)
[2018-03-16] MEDS ORDERED: Enoxaparin(*) 60 MG/0.6 ML SYR SUBCUT ONE (01:32)
[2018-03-16 03:09] VITALS: BP 140/76
== END 2018-03-16 03:08 | disposition home or self-care (01) ==
LOC: ED 22:51
DX: M79.89 Other specified soft tissue disorders (principal); I51.9 Heart disease, unspecified; Z95.5 Presence of coronary angioplasty implant and graft; Z82.49 Family history of ischemic heart disease and other diseases of the circulatory system; Z87.891 Personal history of nicotine dependence
CPT/HCPCS: 36415; 80053; 85025; 85379; 85610; 85730; 96372; 99282; J1650

== ENCOUNTER 2019-01-15 21:42 | Emergency (ER) | payer OTHER ==
[2019-01-15 22:49] LABS: ABS Lymphocytes 0.8 10^3/ul (1.0-4.8); ABS Monocytes 0.5 10^3/ul (0-0.8); ABS Neutrophils 10.3 10^3/ul (1.5-7.7); Eosinophil % 0.1 %; Hematocrit 42 % (42-52); Hemoglobin 14.6 g/dL (14.0-18.0); Lymphocyte % 6.6 %; Mean Corpuscular HGB Conc 35 g/dL (31-36); Mean Corpuscular Hemoglobin 31 pg (27-31); Mean Corpuscular Volume 90 fL (80-94); Mean Platelet Volume 8.7 fL (7.4-10.4); Platelet Count 178 10^3/uL (150-450); Red Blood Count 4.74 10^6 /uL (4.18-5.48); Red Cell Distribution Width 14 % (10-15); White Blood Count 11.6 10^3/uL (3.5-10.8)
[2019-01-15 23:10] LABS: Albumin 4.2 g/dL (3.2-5.2); Albumin/Globulin Ratio 1.7 (1-3); BUN/Creatinine Ratio 21.1 (8-20); Calcium 9.2 mg/dL (8.6-10.3); EGFR African American 97.9 (>60); EGFR Non-African American 80.9 (>60); Globulin 2.5 g/dL (2-4); Potassium 3.7 mmol/L (3.5-5.0); Total Protein 6.7 g/dL (6.4-8.9)
[2019-01-15 23:11] LABS: Troponin I 0.03 ng/mL (<0.04)
[2019-01-16] MEDS: Meclizine TAB* 12.5 MG PO ONE (00:34)
--- NOTE | 2019-01-16 00:55 | ED ---
Dizziness - HPI Summary HPI Summary: Pt is a 58 y/o M presenting to the ED with a chief complaint of dizziness described as room spinning initially onset around 1800 today. He reports associated abd pain, N/V, bloating, belching, and headache. The dizziness is severe and is worsened by looking around, but not alleviated by anything. He denies changes in his speech, vision, or hearing, weakness in his arms or legs, CP, or SOB. - History Of Current Complaint Chief Complaint: EDDizziness Stated Complaint: DIZZINESS/VOMITING PER Time Seen by Provider: 01/16/19 00:04 Hx Obtained From: Patient Onset/Duration: Still Present, Suddenly Timing: Hours Severity Initially: Moderate Severity Currently: Moderate Character: Room Spinning, Dizzy Aggravating Factor(s): Nothing Alleviating Factor(s): Nothing Associated Signs And Symptoms: Positive: Nausea, Vomiting. 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 4, Other Cardiovascular Problems/Disorders - 3 cardiac caths; open heart surgery at age 4 Denies: Hx Congestive Heart Failure, Hx Hypertension, Hx Pacemaker/ICD Respiratory History: Reports: Hx Pneumonia - as a child Denies: Hx Asthma, Hx Chronic Obstructive Pulmonary Disease (COPD) GI History: Denies: Hx Ulcer, Other GI Disorders History: Reports: Hx Benign Prostatic Hyperplasia Denies: Hx Renal Disease Musculoskeletal History: Reports: Hx Arthritis - knees, Other Musculoskeletal History - Rotator cuff surgery, R foot spacer from bunion Sensory History: Reports: Hx Contacts or Glasses Denies: Hx Hearing Aid Opthamlomology History: Reports: Hx Contacts or Glasses EENT History: Reports: Other - tinnitus Psychiatric History: Denies: Hx Panic Disorder - Surgical History Surgery Procedure, Year, and Place: 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 appy. hernia bilateral. RCT repair. heart caths x 3. Vasectomy Infectious Disease History: No Infectious Disease History: Reports: Hx Clostridium Difficile Denies: Hx Hepatitis, Hx Human Immunodeficiency Virus (HIV), Hx of Known/ Suspected MRSA, Hx Shingles, Hx Tuberculosis, Hx Known/Suspected VRE, Hx Known/ Suspected VRSA, History Other Infectious Disease, Traveled Outside the [place] in Last 30 Days - Family History Known Family History: Positive: Cardiac Disease - Father: CHF, pacemaker. Paternal grandfather: [place] at age 60., Other - Mother: scarlet fever Negative: Hypertension, Diabetes - Social History Alcohol Use: Occasionally Hx Substance Use: No Substance Use Type: Reports: None Hx Tobacco Use: Yes Smoking Status (MU): Former Smoker Have You Smoked in the Last Year: No Review of Systems Eyes: Negative Negative: Other - changes in hearing Negative: Chest Pain Negative: Shortness Of Breath Positive: Abdominal Pain, Vomiting, Nausea, Other - bloating, belching Neurological: Other - dizziness Positive: Headache. Negative: Weakness, Slurred Speech All Other Systems Reviewed And Are Negative: Yes Physical Exam - Summary Physical Exam Summary: Constitutional: Well-developed, Well-nourished, Alert. (-) Distressed Skin: Warm, Dry HENT: Normocephalic; Atraumatic Eyes: Conjunctiva normal Neck: Musculoskeletal ROM normal neck. (-) JVD, (-) Stridor, (-) Tracheal deviation Cardio: Rhythm regular, rate normal, Heart sounds normal; Intact distal pulses. Radial pulses are 2+ and symmetric. (-) Murmur Pulmonary/Chest wall: Effort normal. (-) Respiratory distress, (-) Wheezes, (-) Rales Abd: Soft. (-) Tenderness, (-) Distension, (-) Guarding, (-) Rebound Musculoskeletal: (-) Edema Lymph: (-) Cervical adenopathy Neuro: Alert, Oriented x3, Strength normal, Cranial nerves II-XII are grossly intact. (-) Dysmetria, (-) Nystagmus, (-) Ataxia by finger to nose testing, (-) Sensory deficit. Walks with normal gait. Psych: Mood and affect Normal Triage Information Reviewed: Yes Vital Signs On Initial Exam: Initial Vitals Temp Pulse Resp BP Pulse Ox 96.7 F 60 18 130/79 98 01/15/19 21:44 01/15/19 21:44 01/15/19 21:44 01/15/19 21:44 01/15/19 21:44 Vital Signs Reviewed: Yes Procedures - Sedation Patient Received Moderate/Deep Sedation with Procedure: No Diagnostics - Vital Signs Vital Signs Temp Pulse Resp BP Pulse Ox 01/16/19 00:38 74 122/88 01/16/19 00:37 64 135/80 01/16/19 00:34 63 131/75 01/15/19 23:53 97.4 F 01/15/19 21:44 96.7 F 60 18 130/79 98 - Laboratory Lab Results: Lab Results 01/15/19 01/15/19 01/15/19 Range/Units 22:42 22:42 22:42 WBC 11.6 H (3.5-10.8) 10^3/uL RBC 4.74 (4.18-5.48) 10^6 /uL Hgb 14.6 (14.0-18.0) g/dL Hct 42 (42-52) % MCV 90 (80-94) fL MCH 31 (27-31) pg MCHC 35 (31-36) g/dL RDW 14 (10-15) % Plt Count 178 (150-450) 10^3/uL MPV 8.7 (7.4-10.4) fL Neut % (Auto) 88.6 % Lymph % (Auto) 6.6 % [place] % (Auto) 4.4 % Eos % (Auto) 0.1 % Baso % (Auto) 0.3 % Absolute Neuts (auto) 10.3 H (1.5-7.7) 10^3/ul Absolute Lymphs (auto) 0.8 L (1.0-4.8) 10^3/ul Absolute Monos (auto) 0.5 (0-0.8) 10^3/ul Absolute Eos (auto) 0.0 (0-0.6) 10^3/ul Absolute Basos (auto) 0.0 (0-0.2) 10^3/ul Absolute Nucleated RBC 0.0 10^3/ul Nucleated RBC % 0.0 Sodium 138 (135-145) mmol/L Potassium 3.7 (3.5-5.0) mmol/L Chloride 106 (101-111) mmol/L Carbon Dioxide 24 (22-32) mmol/L Anion Gap 8 (2-11) mmol/L BUN 20 (6-24) mg/dL Creatinine 0.95 (0.67-1.17) mg/dL Est GFR ( Amer) 97.9 (>60) Est GFR (Non-Af Amer) 80.9 (>60) BUN/Creatinine Ratio 21.1 H (8-20) Glucose 172 H (70-100) mg/dL Calcium 9.2 (8.6-10.3) mg/dL Total Bilirubin 1.00 (0.2-1.0) mg/dL AST 22 (13-39) U/L ALT 22 (7-52) U/L Alkaline Phosphatase 61 (34-104) U/L Troponin I 0.03 (<0.04) ng/mL B-Natriuretic Peptide 19 (<=100) pg/mL Total Protein 6.7 (6.4-8.9) g/dL Albumin 4.2 (3.2-5.2) g/dL Globulin 2.5 (2-4) g/dL Albumin/Globulin Ratio 1.7 (1-3) Lipase 11 (11.0-82.0) U/L Result Diagrams: 01/15/19 22:42 01/15/19 22:42 Lab Statement: Any lab studies that have been ordered have been reviewed, and results considered in the medical decision making process. - EKG 2155 Cardiac Rate: Bradycardia - 56bpm EKG Rhythm: Sinus Bradycardia ST Segment: Normal Ectopy: None Summary of EKG Findings: EKG at 2155 shows sinus bradycardia at 56bpm with no STEMI or abnormalities. ED physician has interpreted and reviewed this report. Re-Evaluation - Re-Evaluation 1st re-eval Re-Evaluation Time: 01:06 Change: Improved Comment: Pt states his vertigo is gone and he would like to be d/c'ed. Dizzy Course/Dx - Course Course Of Treatment: Patient came to the ED with vertigo. Patient's been doing with inner ear issues including tinnitus and ear fullness and has an ENT who treats him for that. Patient was feeling better by the time he was evaluated but had mild vertigo. Patient had a normal neurologic exam with an NIH stroke scale of 0. Patient had a lateral performed which was grossly unremarkable. Patient is given meclizine with resolution of his symptoms. Patient was discharged with meclizine - Diagnoses Provider Diagnoses: Vertigo Discharge ED - Sign-Out/Discharge Documenting (check all that apply): Patient Departure - Discharge Plan Condition: Stable Disposition: HOME Prescriptions: Meclizine TAB* [Antivert 12.5 TAB*] 25 mg PO TID #12 tab Patient Education Materials: Vertigo (ED) Referrals: Ousmane Mcqueen MD [Primary Care Provider] - Se Craig MD [Medical Doctor] - Additional Instructions: Please follow up with Dr. Craig within the next 1-3 days. Take your prescribed medications as instructed. Return to the emergency department with any intractable vomiting, syncope, or one-sided weakness. - Billing Disposition and Condition Condition: STABLE Disposition: Home - Attestation Statements Document Initiated by Scribe: Yes Documenting Scribe: Bhavana Vásquez Provider For Whom Stevo is Documenting (Include Credential): Bret Wade MD. Scribe Attestation: Bhavana Coker, screvelineed for Bret Wade MD. on 01/16/19 at 0317. Scribe Documentation Reviewed: Yes Provider Attestation: The documentation as recorded by the Bhavana amaya accurately reflects the service I personally performed and the decisions made by Bret patterson MD. Status of Scribe Document: Viewed
[2019-01-16 01:22] VITALS: BP 129/60
== END 2019-01-16 01:21 | disposition home or self-care (01) ==
LOC: ED 21:42
DX: R42 Dizziness and giddiness (principal); Q24.9 Congenital malformation of heart, unspecified; Z95.5 Presence of coronary angioplasty implant and graft; Z87.891 Personal history of nicotine dependence; Z98.52 Vasectomy status
CPT/HCPCS: 36415; 80053; 83690; 83880; 84484; 85025; 93005; 99283; A9270-GY

== ENCOUNTER 2019-06-13 09:35 | Day surgery (SDC) | payer OTHER ==
[~2019-06-13 09:35] MED LIST: Buffered Lidocaine 1% SYRIN* 1 ML/SYRINGE INTRADERM ONE; Famotidine IV* 10 MG/ML 2 ML (20 mg) IV ONE; Lactated Ringers 1000 ML Bag* 1,000 ML IV SCH
[2019-06-13] MEDS ORDERED: Famotidine IV* 10 MG/ML 2 ML (20 mg) ONE (10:13)
[2019-06-13] MEDS ORDERED: ceFAZolin 2 GM PREMIX in ORs 2 GM/50 ML BAG ONE (10:13)
[2019-06-13] MEDS ORDERED: Lidocaine 1% w EPI 1:100,000* MDV 20 ML VIAL ONE (12:07)
[2019-06-13] MEDS ORDERED: BSS OPTH.SOL* BTL ONE (12:07)
[2019-06-13] MEDS ORDERED: Methylene Blue 0.5 %* 50 MG/10 ML AMP IV ONE (12:07)
[2019-06-13] MEDS ORDERED: Bupivacaine 0.25% SDV PF* 10 ML VIAL INJ ONE (12:08)
[2019-06-13] MEDS ORDERED: Midazolam* 1 MG/ML 5 ML VIAL (5 MG) ONE (12:24)
[2019-06-13] MEDS ORDERED: fentaNYL* 50 MCG/ML 2 ML VIAL (100 MCG VIAL) ONE (12:24)
[2019-06-13] MEDS ORDERED: Lidocaine 2% PF * 5 ML VIAL ONE (12:37)
[2019-06-13] MEDS ORDERED: Propofol* 10 MG/ML 20 ML BTL ONE ×2 (12:37→13:41)
[2019-06-13] MEDS ORDERED: Sterile Water for Inj* 0 ML ONE (13:28)
[2019-06-13] MEDS ORDERED: Mineral Oil Sterile, TOPICAL* 25 ML BTL ONE (13:28)
[2019-06-13] MEDS ORDERED: Ondansetron INJ* 2 MG/ML VIAL IV PRN (14:13)
[2019-06-13] MEDS ORDERED: fentaNYL* 50 MCG/ML 2 ML VIAL (100 MCG VIAL) IV PRN (14:13)
[2019-06-13] MEDS ORDERED: Naloxone* 0.4 MG/ML 1 ML VIAL IV PRN (14:13)
[2019-06-13] MEDS ORDERED: oxyCODONE/Acetamin 5/325 MG* TAB PO PRN (14:13)
[2019-06-13] MEDS ORDERED: HYDROcodone/ACETAMIN 5-325 MG* 1 TAB PO PRN (14:13)
[2019-06-13 15:24] VITALS: BP 138/68
== END 2019-06-13 15:20 | disposition home or self-care (01) ==
LOC: OR 09:35
PROVIDERS: ATTEND Plastic Surgery
DX: C44.319 Basal cell carcinoma of skin of other parts of face (principal); I51.7 Cardiomegaly; K21.9 Gastro-esophageal reflux disease without esophagitis; R42 Dizziness and giddiness; Q21.1 Atrial septal defect
CPT/HCPCS: 88305; 88331; 88332; A9270-GY; J0690; J2250; J2704; J3010; J3490

== ENCOUNTER 2021-06-21 05:57 | Observation (INO) ==
[~2021-06-21 05:57] MED LIST changes: +Buffered Lidocaine 1% SYRIN 1 ml INTRADERM ONE; -Buffered Lidocaine 1% SYRIN* 1 ML/SYRINGE INTRADERM ONE; +DiMENhydriNATE IV 50 mg/ml 1 ml VIAL IV PUSH ONE; -Famotidine IV* 10 MG/ML 2 ML (20 mg) IV ONE; -Lactated Ringers 1000 ML Bag* 1,000 ML IV SCH; +Lactated Ringers 1000 ml BAG 1,000 ML IV SCH
[2021-06-21] MEDS ORDERED: DiMENhydriNATE IV 50 mg/ml 1 ml VIAL ONE (06:20)
[2021-06-21] MEDS ORDERED: cefTRIAXone 2 GM ADDV.VIAL ONE (06:20)
[2021-06-21] MEDS ORDERED: Metoclopramide 5 MG/ML VIAL (10 mg) ONE (07:13)
[2021-06-21] MEDS ORDERED: Propofol 10 MG/ML 20 ML BTL ONE (07:13)
[2021-06-21] MEDS ORDERED: fentaNYL 100 mcg/2 ml 50 MCG/ML VIAL ONE (07:15)
[2021-06-21] MEDS ORDERED: Morphine 10 MG/ML VIAL (1 ml) ONE (07:15)
[2021-06-21] MEDS ORDERED: Midazolam 5 mg/5 ml VIAL 1 mg/ml 5 ml VIAL (5 mg) ONE (07:15)
[2021-06-21] MEDS ORDERED: EPHEDrine (Pressors) 50 MG/ML VIAL ONE (07:50)
[2021-06-21] MEDS ORDERED: Lidocaine 2% PF 5 ML VIAL ONE (08:39)
[2021-06-21] MEDS ORDERED: Prochlorperazine 5 mg/ml 2 ml VIAL (10 mg) IV PRN (09:00)
[2021-06-21] MEDS ORDERED: HYDROmorphone 1 MG/1 ML SYRINGE IV PRN (09:00)
[2021-06-21] MEDS ORDERED: Metoclopramide 5 MG/ML VIAL (10 mg) IV PRN (09:00)
[2021-06-21] MEDS ORDERED: Lidocaine 2% JELLY 6 ML TOPICAL PRN (12:05)
[2021-06-21] MEDS ORDERED: oxyCODONE/Acetamin 5/325 mg TAB PO PRN (12:06)
[2021-06-21] MEDS: NS 0.9% 1000 ml BAG 1,000 ML IV SCH ×2 (14:56→22:09)
[2021-06-21] MEDS ORDERED: Al Hydrox/Mg Hydrox/Simet LIQ 30 ML UDC PO PRN (17:20)
[2021-06-22] MEDS: NS 0.9% 1000 ml BAG 1,000 ML IV SCH (04:44)
[2021-06-22 07:46] VITALS: BP 122/77
== END 2021-06-22 11:40 | disposition home or self-care (01) ==
LOC: SSU 05:57 → OR 05:57
PROVIDERS: ADMIT Urology; ATTEND Urology